=== PATIENT | female | born 1960 | race Caucasian/White ===

== ENCOUNTER 2025-02-06 09:00 | Oncology outpatient (recurring) (ONCR) | payer OTHER, SELFPAY ==
[2025-02-06 10:13] LABS: Basophils # 0.1 10^3/uL (0.0-0.1); Eosinophils # 0.8 10^3/uL (0.0-0.8); Eosinophils % 7.3 %; Lymphocytes # 1.7 10^3/uL (0.8-4.8); Lymphocytes % 15.7 %; Mean Corpuscular HGB Conc 32.1 g/dL (30-55); Mean Corpuscular Hemoglobin 30.3 pg (27-33); Mean Corpuscular Volume 94.4 fl (85-98); Mean Platelet Volume 8.4 fL (7.4-10.4); Monocytes # 0.9 10^3/uL (0.2-0.9); Monocytes % 8.1 %; Neutrophils # 7.33 10^3/uL (1.8-7.7); Neutrophils % 67.3 %; Nucleated Red Blood Cells % 0 %; Platelet Count 323 10^3/cmm (157-399); Red Blood Count 4.13 10^6/uL (3.85-5.65); Red Cell Distribution Width 14.1 % (12.1-15.1); White Blood Count 10.88 10^3/uL (3.29-11.43)
[2025-02-06 10:52] LABS: Alanine Aminotransferase 16 U/L (0-33); Albumin Level 3.2 g/dL (3.5-5.2); Alkaline Phosphatase 136 U/L (35-105); Aspartate Amino Transferase 29 U/L (0-32); Blood Urea Nitrogen 7 mg/dL (8-23); CA 125 93.1 U/mL (0-35); Calcium 8.3 mg/dL (8.5-10.5); Carbon Dioxide 20 mmol/L (22-29); Chloride 103 mmol/L (98-107); Globulin 3.7 g/dL (1.3-4.6); Glomerular Filtration Rate 101.3 mL/min (90-130); Glucose 119 mg/dL (65-115); Osmolality Calculated 283 mOsm/kg (285-295); Sodium 137 mmol/L (136-145); Total Bilirubin 0.3 mg/dL (0.15-1.2); Total Protein 6.9 g/dL (6.6-8.7)
[2025-02-06 10:54] LABS: Anion Gap 18.1 (5-19); Potassium 4.1 mmol/L (3.5-5.1)
== END 2025-02-06 23:59 | disposition home or self-care (01) ==
LOC: ONCMED 09:03
PROVIDERS: Visit Provider Internal Medicine Medical Oncology
DX: C56.2 Malignant neoplasm of left ovary (principal); C78.5 Secondary malignant neoplasm of large intestine and rectum; C78.89 Secondary malignant neoplasm of other digestive organs; C79.82 Secondary malignant neoplasm of genital organs; C79.89 Secondary malignant neoplasm of other specified sites; Z87.891 Personal history of nicotine dependence
CPT/HCPCS: 36415; 80053; 85025; 86304; 99205

== ENCOUNTER → 2025-03-07 09:41 | Outpatient (BNVA) | payer OTHER, SELFPAY | PROVIDERS: Visit Provider Surgery | DX: Z95.828 Presence of other vascular implants and grafts (principal) | CPT/HCPCS: 99204 ==

== ENCOUNTER → 2025-03-22 13:25 | Outpatient (BNVA) | payer OTHER, SELFPAY | PROVIDERS: Referring Provider Surgery; Visit Provider Internal Medicine Cardiovascular Disease | DX: Z01.818 Encounter for other preprocedural examination (principal); C76.8 Malignant neoplasm of other specified ill-defined sites; I26.99 Other pulmonary embolism without acute cor pulmonale; Z79.01 Long term (current) use of anticoagulants; Z87.891 Personal history of nicotine dependence; R07.9 Chest pain, unspecified | CPT/HCPCS: 93005; 99204 ==

== ENCOUNTER 2025-04-01 11:52 | Observation (INO) | payer OTHER, SELFPAY ==
--- OUTSIDE RECORDS SUMMARY | 2025-03-24 09:47 | XMS_ITS | Encounter Summary ---
Author Organization [facility] [employer] [facility] Address [address] [place] [address] Care Team Providers Care Coating Mixer Tender Name Role Phone Wagner Luis MD Primary Care Provider [phone] Reason for Visit * Occupational Therapy (Routine) - Authorized Specialty Diagnoses / Procedures Referred By Contact Referred To Contact Occupational Therapy Diagnoses Decreased strength of upper extremity Genoveva Cole, ADALID [address] [address] Phone: tel: fax: [facility] Occupational Therapy Services [place] [address] [address] Phone: tel: fax: Referral ID Status Reason Start Date Expiration Date V isits Requested Visits Authorized [id number] Authorized 03/03/2025 03/02/2026 1 16 Encounter Details Date Type Department Care Team (Late st Contact Info) Description 03/24/2025 9:47 AM CDT - 03/24/2025 11:59 PM CDT Hospital Encounter [facility] Occupational Therapy Services [place] [address] [phone] Genoveva Cole, ADALID [address] [address] Rhea Prince, [employer] Registrar Discharge Disposition: Home or Self Care Social History Tobacco Use Types Packs/Day Years Used Date Smoking Tobacco: Former Cigarettes 1 42.6 S tarted: 08/10/1982 Smokeless Tobacco: Never Alcohol Use Standard Drinks/Week Comments No 0 (1 standard drink = 0.6 oz pur e alcohol) Feeling Safe Answer Date Recorded Are you in a relationship wi th someone who hurts you emotionally and/or physically? 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 30 Each 11 02/27/2025 gabapentin (NEURONTIN) 100 mg capsuleIndication s:Nerve pain Take 1 Capsule (100 mg) by mouth 2 times daily. 60 Capsule 1 02/22/2025 apixaban (ELIQUIS) 5 mg tablet Take 2 Tablets (10 mg) by mouth 2 times daily for 6 days, THEN 1 Tablet (5 mg) 2 times daily. 96 Tablet 1 02/18/2025 3:09 PM CDT 02/18/2025 traZODone (DESYREL) 50 mg tablet Take 1 Tablet (50 mg) by mouth daily at bedtime. 30 Tablet 1 02/08/2025 ondansetron (Zofran) 4 mg TabletIndications :Moderate nausea Take 1 Tablet (4 mg) by mouth every 8 hours as needed for Nausea/Emesis. 30 Tablet 01/31/2025 walker with wheels Face to Face completed within 6 months: yes Length of Need: 99 months 1 Each 01/15/2025 loperamide (IMODIUM) 2 mg capsule Take 2 mg by mouth every 3 hours as needed for Diarrhea/Loose Stools. meclizine (ANTIVERT) 25 mg tabletIndications :Dizziness Take 1 Tablet (25 mg) by mouth 3 times daily as needed for Dizziness. 90 Tablet 1 12/26/2024 albuterol sulfate HFA 90 mcg/actuation aerosol inhalerIndication s:Mild persistent asthma without complication,Acut e bronchitis, unspecified organism Take 2 Puffs by inhalation every 4 hours as needed for Shortness of Breath or Wheezing. 6.7 Gram 2 12/09/2024 documented as of this encounter Miscellaneous Notes * Therapy Treatment - Rhea Prince, College [employer] University Registrar - 03/24/2025 10:00 AM CDT [facility] Therapy Services-[place] [address] [address] Daily Progress Note 03/24/2025 Patient: Tayler Reveles Date of : 1960 Referring Physician: Genoveva Cole* Primary-Referring Diagnosis: R29.898 (ICD-10-CM) - 729.89 (ICD-9-CM) - Decreased strength of upper extremity Precautions:Healing wound on abdomen Insurance: Payor: RUPINDER / Plan: RUPINDER / Product Type: [place] / Onset Date: 02/06/25 Start of Care Date: 03/03/25 Patient was identified by name and date of Start Time: 10:00 End Time: 11:00 Total Time: 60 minutes Subjective: Pt said she had no UE pain today Pt stated she has been getting up and moving more Pt stated she was feeling more tired and dizzy today. Pain Level 2-5/10 pain wound dressing change. From female surgery and bladder and bowel resection. 4X8 inch wound, healing Tx today 03/16/25 03/20/25 03/24/25 Modality Manual 33 deg clavicle angle at rest Thera act Standing tolerance activity in parallel bars for her comfort Standing There ex Rowing with 40# X 10 with no pain Rowing 40# X 15X2 2# Shoulder presses above Head X 15 X 2 Hand squeeze with green egg roll 2x5 UBE standing 7 minutes LVL 2 UBE standing 5 minutes LVL2 UBE standing for 5 minutes with 1 rest break and the 3 more minutes LV2 Standing red theraband exercises 5 standard X 10 reps each 3# dumbell curls X 15X2 Green Theratubing bilateral shoulder punches X 15 X 2 Standing green theraband exercises 5 [id number] reps each. Assessment: Been using red theratubing and egg squeezes every other day Upgraded to green Pt needs to begin her journey to great UE fitness and whole body conditioning in partnership with PT Plan Would like to regain strength in wrists, arms and to regain mobility. Patient will be seen 2 times per week for 8 weeks or until 05/14/25 for treatment consisting of manual therapy with and without instrumentation, therapeutic exercise with implementation of home exercise program, and modalities as appropriate for pain control. Therapeutic intervention focused to meet the established OT goals. Automatic discharge may occur should the patient exhibit 2-3 consecutive no- shows or cancellations or when patient has met functional OT goals. Therapeutic Goals: Short Term Goals (30 Days) 1) Pt will report and demonstrate 80% or better with HEP exercises compliance 2) Pt will demonstrate improved bilateral last model department supervisor to 35# 3) Pt will tolerate 8 minutes of sustained UE exertion without rest break Care Home Goals (60-90 days) 4) Pt will demonstrate 5/5 bilateral UE strength throughout for ADL and IADL performance 5) Pt will demonstrate 45# bilateral last model department supervisor strength for ADL and IADL performance 6) Pt will have DASH score of 10 or less, demonstrating significant improvement in quality of life and independence with ADLs Rhea Prince [employer] Registrar * Addendum Note - Rhea Prince [employer] Registrar - 03/24/2025 10:00 AM CDTEncounter addended by: Rhea Prince [employer] Registrar on: 03/24/2025 5:18 PM Actions taken: Flowsheet accepted documented in this encounter Plan of Treatment Upcoming Encounters Date Type Department Care Team (Late st Contact Info) Description 04/05/2025 10:00 AM CDT Appointment [facility] Occupational Therapy Services [place] [address] [facility] [address] [place] [phone] Genoveva Cole, ADALID [address] [facility] [address] [place] [address] Rhea Prince, [employer] University Registrar 04/07/2025 10:00 AM CDT Appointment [facility] Occupational Therapy [facility] [address] [phone] Genoveva Cole, ADALID [address] [facility] [address] [place] [address] Rhea Prince, College [employer] University Registrar 04/12/2025 10:00 AM CDT Appointment [facility] Occupational Therapy [facility] [address] [phone] Genoveva Cole, ADALID [address] [address] Rhea Prince, College [employer] University Registrar 04/13/2025 10:30 AM CDT Office Visit [facility] Womens Oncology [place] [address] [facility] [address] [place] [address] Ramya Tobias NP [address] [facility] [address] [place] [address] documented as of this encounter Visit Diagnoses Not on filedocumented in this encounter Additional Health Concerns Assessment Noted Time PHQ-9 Depression Total Score: 1 02/15/20 25 3:00 AM CDT documented as of this encounter Care Teams Coating Mixer Tender Relationship Specialty Start Date End Date Wagner Luis MD [address] [phone] PCP - General Family Practice 06/19/23 documented as of this encounter
--- OUTSIDE RECORDS SUMMARY | 2025-03-29 09:55 | XMS_ITS | Encounter Summary ---
Author Organization [facility] Address [address] [place] [address] Care Team Providers Care Dinkey Engine Firer/Fireman Name Role Phone Wagner Luis MD Primary Care Provider [phone] Reason for Visit * Occupational Therapy (Routine) - Authorized Specialty Diagnoses / Procedures Referred By Contact Referred To Contact Occupational Therapy Diagnoses Decreased [place] of [place] [address] [address] Phone: tel: fax: [facility] Occupational Therapy Services [address] [address] Phone: tel: fax: Referral ID Status Reason Start Date Expiration Date V isits Requested Visits Authorized [id number] Authorized 03/03/2025 03/02/2026 1 16 Encounter Details Date Type Department Care Team (Late st Contact Info) Description 03/29/2025 9:55 AM CDT - 03/29/2025 11:59 PM CDT Hospital Encounter [facility] Occupational Therapy Services [address] [phone] Genoveva Cole, ADALID [address] [address] Blaise Baca Occupational Therapist Discharge Disposition: Home or Self Care Social [...] on file 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 Gender Identity Not on file Sexual Orientation Not on file documented as of this encounter Medications at Time of Discharge fluticasone furoate-vilantero L (Breo Ellipta) 100-25 mcg/dose Disk with Device Inhale 1 puff by mouth once daily 60 Each 02/28/2025 umeclidinium (Incruse Ellipta) 62.5 mcg/actuation Disk [...] encounter Miscellaneous Notes * Therapy Treatment - Blaise Baca Occupational Therapist - 03/29/2025 10:00 AM CDT [facility] Therapy Services-[place] [address] [phone] Daily Progress Note 03/29/2025 Patient: Tayler Reveles Date of : 1960 Referring Physician: Genoveva Cole* Primary-Referring Diagnosis: R29.898 (ICD-10-CM) - 729.89 (ICD-9-CM) - Decreased strength of upper extremity Precautions:Healing wound on abdomen Insurance: Payor: / Plan: / Product Type: [place] / Onset Date: 02/06/25 Start of Care Date: 03/03/25 Patient was identified by name and date of Start Time: 1005 End Time: 1100 Total Time: 55 minutes Subjective: Pt said she had no UE pain today Pt stated she has been getting up and moving more Pt stated she was feeling more tired and dizzy today. Pain Level 2-3/10 low back 2/10 Wound pain 0/10 bilateral shoulder pain Tx today 03/16/25 03/20/25 03/24/25 03/29/25 Modality Manual 33 deg clavicle angle at rest Thera act Standing tolerance activity in parallel bars for her comfort Standing There ex Rowing with 40# X 10 with no pain Rowing 40# X 15X2 2# Shoulder presses above Head X 15 X 2 Hand squeeze with green egg roll 2x5 Rowing 55# X 10 Culrs X8# bar X 10 UBE standing 7 minutes LVL 2 UBE standing 5 minutes LVL2 UBE standing for 5 minutes with 1 rest break and the 3 more minutes LV2 UBE standing 7:09 standing no rest LVL Standing red theraband exercises 5 standard X 10 reps each 3# dumbell curls X 15X2 Green Theratubing bilateral shoulder punches X 15 X 2 Standing green theraband exercises 5 [id number] reps each. Standing green theraband exercises 5 standard X10 reps each. Assessment: Been using red theratubing and egg squeezes every day Pt needs to begin her journey to [...] compliance 2) Pt will demonstrate improved bilateral gallery or museum technician to 35# 3) Pt will tolerate 8 minutes of sustained UE exertion without rest break Byproduct Engineer Goals (60-90 days) 4) Pt will demonstrate 5/5 bilateral UE strength throughout for ADL and IADL performance 5) Pt will demonstrate 45# bilateral gallery or museum technician strength for ADL and IADL performance 6) Pt will have DASH score of 10 or less, demonstrating significant improvement in quality of life and independence with ADLs Blaise Baca Occupational Therapist documented in this encounter Plan of Treatment Upcoming Encounters Date Type Department Care Team (Late st Contact Info) Description 04/05/2025 10:00 AM CDT Appointment [facility] Occupational Therapy Services [place] [address] [place] [phone] Genoveva Cole, ADALID [address] [facility] [address] [place] [address] Rhea Prince Dumper [employer] 04/07/2025 10:00 AM CDT Appointment [facility] Occupational Therapy [facility] [address] [facility] [address] [place] [phone] Genoveva Cole, ADALID [address] [facility] [address] [place] [address] Rhea Prince Dumper [employer] 04/12/2025 10:00 AM CDT Appointment [facility] Occupational Therapy [facility] [address] [facility] [address] [place] [phone] Genoveva Cole, ADALID [address] [facility] [address] [place] [address] Rhea Prince Dumper [employer] 04/13/2025 10:30 AM CDT Office Visit [facility] Womens Oncology [place] [address] [facility] [address] [place] [address] Ramya Tobias NP [address] [facility] [address] [place] [address] documented as of this encounter Visit Diagnoses Not on filedocumented in this encounter Additional Health Concerns Assessment Noted Time PHQ-9 Depression Total Score: 1 02/15/20 25 3:00 AM CDT documented as of this encounter Care Teams Dinkey Engine Firer/Fireman Relationship Specialty Start Date End Date Wagner Luis MD [address] [phone] PCP - General Family Practice 06/19/23 documented as of this encounter
--- OUTSIDE RECORDS SUMMARY | 2025-04-01 11:55 | XMS_ITS | Encounter Summary ---
Author Organization [facility] Address 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 Gender Identity Not on file Sexual Orientation Not on file documented as of this encounter Plan of Treatment Upcoming Encounters Date Type Department Care Team (Late st Contact Info) Description 04/05/2025 10:00 AM CDT Appointment [facility] Occupational Therapy Services [place] [address] [facility] [address] [place] [phone] Genoveva Cole, ADALID [address] [facility] [address] [place] [address] Rhea Prince, Curriculum Specialist 04/07/2025 10:00 AM CDT Appointment [facility] Occupational Therapy [facility] [address] [phone] Genoveva Cole, ADALID [address] [address] Rhea Prince, Curriculum Specialist 04/12/2025 10:00 AM CDT Appointment [facility] Occupational Therapy [facility] [address] [phone] Genoveva Cole, ADALID [address] [address] Rhea Prince Curriculum Specialist 04/13/2025 10:30 AM CDT Office Visit [facility] Womens Oncology [place] [address] [facility] [address] [place] [address] Ramya Tobias NP [address] [facility] [address] [place] [address] documented as of this encounter Visit Diagnoses Not on filedocumented in this encounter Additional Health Concerns 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
--- OUTSIDE RECORDS SUMMARY | 2025-04-01 11:55 | XMS_ITS | Clinical Summary ---
Author Organization [facility] Address [address] [facility] Attn: [place] [address] Care Team Providers Care Linux Architect Name Role Phone Wagner Luis MD Primary Care Provider [phone] Allergies Active Allergy Reactions Criticality Noted Date Comments Acetaminophen Itching Low 09/04/2013 Fish Derived Rash Low 01/09/2025 Medications albuterol sulfate HFA 90 mcg/actuation aerosol inhalerIndicatio ns:Mild persistent asthma without complication,Acu te bronchitis, unspecified organism Take 2 Puffs by inhalation every 4 hours as needed for Shortness of Breath or Wheezing. 6.7 Gram 2 5 Active meclizine (ANTIVERT) 25 mg tabletIndication s:Dizziness Take 1 Tablet (25 mg) by mouth 3 times daily as needed for Dizziness. 90 Tablet 1 5 Active loperamide (IMODIUM) 2 mg capsule Take 2 mg by mouth every 3 hours as needed for Diarrhea/Loose Stools. Active walker with wheels Face to Face completed within 6 months: yes Length of Need: 99 months 1 Each 5 Active ondansetron (Zofran) 4 mg TabletIndication s:Moderate nausea Take 1 Tablet (4 mg) by mouth every 8 hours as needed for Nausea/Emesis. 30 Tablet 5 Active traZODone (DESYREL) 50 mg tablet Take 1 Tablet (50 mg) by mouth daily at bedtime. 30 Tablet 1 5 Active apixaban (ELIQUIS) 5 mg tablet Take 2 Tablets (10 mg) by mouth 2 times daily for 6 days, THEN 1 Tablet (5 mg) 2 times daily. 96 Tablet 1 02/18/2025 3:09 PM CDT 5 05/19/20 25 Active gabapentin (NEURONTIN) 100 mg capsuleIndicatio ns:Nerve pain Take 1 Capsule (100 mg) by mouth 2 times daily. 60 Capsule 1 5 Active umeclidinium (Incruse Ellipta) 62.5 mcg/actuation Disk with Device Take 1 Puff by inhalation daily. 30 Each 11 5 Active fluticasone furoate-vilanter oL (Breo Ellipta) 100-25 mcg/dose Disk with Device Inhale 1 puff by mouth once daily 60 Each 5 5 Active ciprofloxacin HCl (CIPRO) 750 mg tablet Take 1 Tablet (750 mg) by mouth 2 times daily for 7 days. 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 02/13/2025 Acute pulmonary embolism without acute cor pulmo nale 02/13/2025 Hyponatremia 02/13/2025 Hypomagnesemia 02/13/2025 Lower abdominal pain 02/13/2025 High grade serous carcinoma 01/18/2025 H/O lymph node excision 01/17/2025 Leukocytosis (leucocytosis) 01/17/2025 Pelvic abscess in female 01/17/2025 Ovarian cyst, left 01/17/2025 Obesity (BMI 35.0-39.9 without comorbidity) 01/08 FIGO 4B Left tubo-ovarian, r ight fallopian tube High Grade Serous Carcinoma 01/16/2025 S/P right hemicolectomy 01/11/2025 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 Post-menopausal bleeding 01/11/2025 Colonic mass 01/10/2025 Ovarian mass, left 01/10/2025 Elevated CA-125 01/10/2025 S/P LAINE (total abdominal hysterectomy) 5 S/P bladder repair 01/10/2025 Colovesical fistula 01/05/2025 Fistula involving female genital tract Ulcer of left groin 12/19/2024 Ulcer of abdomen wall, limited to breakdown of s kin 12/19/2024 Protein-calorie malnutrition, moderate Centrilobular emphysema 12/14/2024 Tobacco abuse counseling 12/14/2024 Uterovesical fistula 12/13/2024 Pelvic mass and multiple fis tulas s/p ex lap, tumor debulking 12/13/2024 Morbid obesity with body mass index of 40.0-49.9 12/13/2024 Tobacco use 09/15/2016 Encounters Date Type Department Care Team Description 03/29/2025 9:55 AM CDT - 03/29/2025 11:59 PM CDT Hospital Encounter [facility] [address] [facility] 60 [place] [phone] Genoveva Cole, Blaise Murillo, Occupational Therapist Discharge Disposition: Home or Self Care 03/24/2025 9:47 AM CDT - 03/24/2025 11:59 PM CDT Hospital Encounter [facility] [address] [facility] 60 [place] [phone] Genoveva Cole, Rhea Cueva, Mixer Attendant Discharge Disposition: Home or Self Care 03/20/2025 2:48 PM CDT - 03/20/2025 11:59 PM CDT Hospital Encounter [facility] [address] [facility] 60 [place] [phone] Genoveva Cole, Blaise Murillo, Occupational Therapist Discharge Disposition: Home or Self Care 03/16/2025 12:55 PM CDT - 03/16/2025 11:59 PM CDT Hospital Encounter [facility] [address] [facility] [address] [place] [address] Genoveva Cole, Blaise Murillo, Occupational Therapist Discharge Disposition: Home or Self Care 03/03/2025 9:33 AM CDT - 03/03/2025 11:59 PM CDT Hospital Encounter [facility] [address] [phone] Genoveva Cole, Blaise Murillo, Occupational Therapist Discharge Disposition: Home or Self Care 02/27/2025 Telephone [facility] [address] [place] [address] Kaycee Marie NP Erroneous encounter-disregard 02/27/[address] [phone] Kaycee Marie NP Appointment Correction 02/27/2025 [facility] Physical Med [facility] [address] [place] [phone] Elver Mayo MD 02/25/2025 [facility] Med [facility] [address] [place] [address] Elver Mayo MD 02/24/2025 Results Follow-Up [address] [phone] Kaycee Marie NP CBC WITH DIFFERENTIAL, COMPREHENSIVE METABOLIC PANEL 02/23/2025 10:08 AM CDT - 02/23/2025 11:59 PM CDT Hospital Encounter [facility] [address] [phone] Kaycee Marie NP Discharge Disposition: Home or Self Care 02/23/[address] [phone] Wagner Luis MD Provider Call 02/22/2025 10:20 AM CDT Office Visit [address] [phone] Kaycee Marie NP Hospital discharge follow-up (Primary Dx); Nerve pain; Acute pulmonary embolism without acute cor pulmonale, unspecified pulmonary embolism type (CMS/HCC); Pelvic mass and multiple fistulas s/p ex lap, tumor debulking; S/P bladder repair; S/P right hemicolectomy 02/16/2025 Telephone [facility] [address] [facility] [place] [address] [place] [address] Tiarra Whitney RN Nurse Navigation 02/14/2025 External Device Data STL ABSTRACTION Provider, Abstract 02/14/2025 Results Follow-Up [facility] Emergency Medicine [address] [facility] 60 [place] [phone] Maryam Win RN BLOOD CULTURE, BLOOD CULTURE 02/14/2025 External Device Data STL ABSTRACTION Provider, Abstract 02/13/2025 2:04 PM CDT - 02/18/2025 3:04 PM CDT Hospital Encounter [facility] Medical Telemetry [address] 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 Discharge Disposition: [facility] 02/13/2025 Travel 02/09/2025 8:30 AM CDT - 02/09/2025 11:59 PM CDT Hospital Encounter [facility] [address] [phone] Elver Mayo MD Discharge Disposition: Home or Self Care 02/08/2025 10:00 AM CDT Office Visit [facility] [address] [place] [address] Kaycee Marie NP Encounter for follow-up examination (Primary Dx); Insomnia, unspecified type; S/P LAINE (total abdominal hysterectomy); Uterovesical fistula; Ovarian mass, left; Leukocytosis, unspecified type; S/P bladder repair; S/P right hemicolectomy; Pelvic mass and multiple fistulas s/p ex lap, tumor debulking 02/07/2025 External Device Data STL ABSTRACTION Provider, Abstract 02/06/2025 Orders Only [facility] Admitting [address] [phone] Rene Arora Generalized muscle weakness (Primary Dx); Decreased strength of upper extremity 02/03/2025 1:35 PM CDT - 02/03/2025 11:59 PM CDT Hospital Encounter [facility] [address] [phone] Elver Mayo MD Discharge Disposition: Home or Self Care 02/02/2025 Telephone [facility] [address] [facility] 60 [place] [phone] Wagner Luis MD Information 01/27/2025 Telephone [facility] [address] [facility] [place] [address] [place] [address] Tiarra Whitney RN Nurse Navigation 01/26/2025 3:30 PM CDT Office Visit [facility] Womens Oncology [place] [address] [place] [address] Domonique Moore FNP Encounter for education (Primary Dx); High grade serous carcinoma (CMS/HCC); Primary carcinoma of fallopian tube (CMS/HCC); Other specified counseling; Postoperative follow-up; Postoperative fistula of bladder; Status post total abdominal hysterectomy and bilateral salpingo-oophorectomy 01/26/2025 10:00 AM CDT Video Visit [facility] Infectious Disease[address] [phone] Rhea Javier, JASE Pelvic abscess in female (Primary Dx); Colovesical fistula; Receiving intravenous antibiotic treatment as outpatient; Encounter for medication management; At risk for Clostridioides difficile infection 01/24/2025 External Device Data STL ABSTRACTION Provider, Abstract 01/19/2025 5:26 PM CDT - 01/31/2025 5:53 PM CDT Hospital Encounter [address] [phone] Elver Mayo MD Umran, Kusai A, MD Pelvic mass Discharge Disposition: Home or Self Care 01/19/2025 Telephone [facility] Infectious Disease-[address] [phone] Sharon Baca MD IV ABX- coordinated appointments 01/17/2025 External Device Data STL ABSTRACTION Provider, Abstract 01/17/2025 External Device Data STL ABSTRACTION Provider, Abstract 01/16/2025 Telephone [facility] Cancer Center [address] [place], [place] [address] [place] [phone] Tiarra Whitney RN Information 01/16/2025 Cancer Conference [facility] Cancer Center [address] [place] [address] [place] [phone] Tiarra Whitney RN High grade serous carcinoma (CMS/HCC) (Primary Dx) 01/16/2025 Orders Only [facility] Oncology [address] [place] [phone] Ramya Tobias NP FIGO 4B Left tubo-ovarian, right fallopian tube High Grade Serous Carcinoma (Primary Dx) 01/13/2025 Results Follow-Up [facility] Gen Spec Surg [place] [address] [place] [phone] Sanjeev Oliveira MD PATHOLOGY 01/10/2025 2:21 PM CDT - 01/10/2025 9:00 PM CDT Surgery [facility] Operating Room [facility] [place] [phone] Rosalind Quiñones DO HYSTERECTOMY ABDOMINAL TOTAL 01/10/2025 1:56 PM CDT Anesthesia Event [facility] Operating Room [address] [place] [phone] Jg Alexandre MD 01/10/2025 6:54 AM CDT - 01/19/2025 5:03 PM CDT Hospital Encounter [facility] 5B Gynecology [address] [place] [phone] Rosalind Quiñones DO Syed, Ammar, MD Saeed, Mariam, MD Sohail, MD Gerald Carrera Toni L, MD Ovarian mass, left Discharge Disposition: Rehab Facility IP 01/09/2025 Telephone [facility] Gen Spec Surg [place] [address] [place] [phone] Sanjeev Oliveira MD Surgery 01/09/2025 Orders Only [facility] [place] [facility] [address] [address] Sanjeev Oliveira MD 01/06/2025 Orders Only [facility] Gen Spec [facility] [place] [address] [address] Sanjeev Oliveira MD 01/06/2025 Telephone [facility] Gen Spec [facility] [place] [address] [place], [place] [address] [address] [address] Sanjeev Oliveira MD Surgery 01/06/2025 Prep for Surgery [facility] Gen Spec Surg [place] [address] [place] [address] Sanjeev Oliveira MD Uterovesical fistula (Primary Dx) 01/06/2025 Prep for Surgery [facility] Women Oncology [place] [address] [facility] [address] [place] [address] Saima Jackson RN 01/06/2025 Travel 01/05/2025 4:28 PM CDT Anesthesia Event [facility] Operating Room [address] [place] [address] Jg Alexandre MD Belk, Julie R, CRNA 01/05/2025 4:14 PM CDT - 01/05/2025 5:57 PM CDT Surgery [facility] Operating Room [address] [place] [phone] Rosalind Quiñones DO EXAMINATION UNDER ANESTHESIA 01/05/2025 1:59 PM CDT - 01/06/2025 1:27 PM CDT Hospital Encounter [facility] 5B Gynecology [address] [place] [address] Rosalind Quiñones DO Patel, Taksh, MD Sigdel, Supriya, MD Colovesical fistula Discharge Disposition: Home or Self Care 01/05/2025 10:37 AM CDT - 01/05/2025 11:59 PM CDT Hospital Encounter [facility] Nuclear Medicine [address] [place] [address] Domonique Moore FNP Discharge Disposition: Home or Self Care 01/04/2025 10:30 AM CDT Office Visit [facility] [place] [address] [place] [address] Roslaind Quiñones DO Rectovesical fistula (Primary Dx); Pelvic mass in female; Tobacco use; Centrilobular emphysema (CMS/HCC); Screening for cervical cancer; Screening mammogram, encounter for; Uterine fistula 01/04/2025 Prep for Surgery [facility] [place] [address] [place] [phone] Saima Jackson RN Pre-op testing (Primary Dx); Pelvic mass; Post-menopausal bleeding; Fistula involving female genital tract 01/04/2025 Orders Only [facility] Gen Spec Surg [place] [address] [facility] [address] [place] [address] Sanjeev Oliveira MD 01/04/2025 Telephone [facility] Gen Spec Surg [place] [address] [facility] [address] [place] [address] Sanjeev Oliveira MD Colonoscopy 01/04/2025 Orders Only [facility] Gen Spec S[facility] [place] [address] [facility] [address] [place] [address] Sanjeev Oliveira MD Uterovesical fistula (Primary Dx) 2024 Telephone [facility] [address] [place] [place] [address] Fernanda Iraheta, [facility] Information (Social Work Navigation) from Last 3 Months Family History Medical History Relation Name Comments Melanoma Father Bone Cancer Maternal Grandmother Breast Cancer Mother Cancer Mother breast Hypertension Mother Hypertension Sister 1 Hypertension Sister 2 Colon Cancer Neg Hx Ovarian Cancer Neg Hx Pancreatic Cancer Neg Hx Uterine or Endometrial Cance r, Not Including Cervical Neg Hx Relation Name Status Comments Father Maternal Grandmother Mother Sister 1 Sister 2 Social History Tobacco Use Types Packs/Day Years Used Date Smoking Tobacco: Former Cigarettes 1 42.6 S tarted: 08/10/1982 Smokeless Tobacco: Never Tobacco Cessation:Counseling Given: Not Answered Alcohol Use Standard Drinks/Week Comments No 0 [...] on file Legal Sex Female 10:19 AM [employer] Gender Identity Not on file Sexual Orientation Not on file Last Filed Vital Signs Vital Sign Reading Time Taken Comments Blood Pressure 124/80 02/22/2025 10:22 AM CDT Pulse 77 02/22/2025 10:22 AM CDT Temperature 36.3 C (97.3 F) 02/22/2025 10:22 AM CDT Respiratory Rate 18 02/22/2025 10:22 AM CDT Oxygen Saturation 92% 02/22/2025 10:22 AM CDT Inhaled Oxygen Concentration - - Weight 85.7 kg (189 lb) 02/22/2025 10:22 AM CDT Height 157.5 cm (5' 2 ) 02/22/2025 10:22 AM CDT Body Mass Index 34.57 02/22/2025 10:22 AM CDT Plan of Treatment Upcoming Encounters Date Type Department Care Team (Late st Contact Info) Description 04/05/2025 10:00 AM CDT Appointment [facility] [place] [address] [place] [phone] Genoveva Cole, ADALID [address] [address] Rhea Prince, Mixer Attendant 04/07/2025 10:00 AM CDT Appointment [facility] [place] [address] [place] [phone] Genoveva Cole, ADALID [address] [address] Rhea Prince, Mixer Attendant 04/12/2025 10:00 AM CDT Appointment [facility] [place] [address] [place] [phone] [place] [address] [facility] [address] [place] [address] Rhea Prince, Mixer Attendant 04/13/2025 10:30 AM CDT Office Visit [facility] [place] [address] [facility] [address] [place] [address] Ramya Tobias NP [address] [facility] [address] [place] [address] Health Maintenance Due Date Last Done Comments Pre-Diabetes and Diabetes Screening 1962 DTAP/TDAP/TD VACCINES (1 - Tdap) 1981 ZOSTER VACCINE (1 of 2) 1981 BREAST CANCER SCREENING 2002 FIT-DNA Q 3 years 12/31/2007 FIT/FOBT Q 1 year 12/31/2007 Flex Sig/CT Colonography Q 5 years 12/31/2007 COVID-19 Vaccine (3 - Modern a risk series) 03/29/2021 03/01/2021, 01/30/2021 RSV VACCINE (60+ or ) (1 - Risk 60-74 years 1-dose series) 2022 INFLUENZA VACCINE (#1) 2025 11/27/2023 COLORECTAL SCREENING 01/05/2035 01/05/2025, 01/05/2025, 01/05/2025 Colorectal Cancer Screening 01/05/2035 Medical Devices Implanted Type Area Dispatcher Chief Oil Device Identifier Shelf Expiration Date Model / Serial / Lot Clip Ligating Horizon Lrg Ti 10.07x12.38mm [id number] [place] [facility] [id number] Implanted:Qty: 1 on 01/10/2025 by Rosalind Quiñones DO at [facility] Clip N/A: Abdomen TELEFLEX- WECK CLOSURE SYS [id number] 08/23/2029 [id number] / / [id number] Clip Ligating Horizon Med Ti [id number] [place] [facility] [place] [id number] Implanted:Qty: 1 on 01/10/2025 by Rosalind Quiñones DO at [facility] Clip N/A: Abdomen TELEFLEX- WECK CLOSURE SYS [id number] 06/01/2029 [id number] / / [id number] Clip Ligating [facility] [id number] - [place] - [id number] Implanted:Qty: 1 on 01/10/2025 by Rosalind Quiñones DO at [facility] Clip N/A: Abdomen TELEFLEX- WECK CLOSURE SYS [id number] 06/01/2029 [id number] / / [id number] Procedures Procedure Name Priority Date/Time Associated Diagnosis Comments REFERENCE LAB PROCESSING FEE Routine 02/23/2025 10:25 AM CDT Radiotherapy follow-up examination COMPREHENSIVE METABOLIC PANEL Routine 02/22/2025 12:00 AM CDT Acute pulmonary embolism without acute cor pulmonale, unspecified pulmonary embolism type (CMS/HCC) Hospital discharge follow-up CBC WITH DIFFERENTIAL Routine 02/22/2025 12:00 AM CDT Acute pulmonary embolism without acute cor pulmonale, unspecified pulmonary embolism type (CMS/HCC) Hospital discharge follow-up TELEMETRY REPORT 02/20/2025 4:12 PM CDT UNFRACTIONATED HEPARIN ACTIVITY Timed Study 02/17/2025 4:40 AM CDT CBC WITHOUT DIFFERENTIAL Routine 02/16/2025 4:41 PM CDT ECHOCARDIOGRAM W/ CONTRAST AGENT Pending Discharge 02/16/2025 3:19 PM CDT XR CYSTOGRAM Routine 02/16/2025 9:16 AM CDT UNFRACTIONATED HEPARIN ACTIVITY Timed Study 02/16/2025 4:34 AM CDT MAGNESIUM LEVEL Routine 02/15/2025 5:57 AM CDT UNFRACTIONATED HEPARIN ACTIVITY Timed Study 02/15/2025 5:57 AM CDT COMPREHENSIVE METABOLIC PANEL Routine 02/15/2025 5:57 AM CDT CBC WITH DIFFERENTIAL Routine 02/15/2025 5:57 AM CDT CK Routine 02/14/2025 2:19 PM CDT UNFRACTIONATED HEPARIN ACTIVITY Timed Study 02/14/2025 9:39 AM CDT US VENOUS DOPPLER LEG BILATERAL Stat 02/14/2025 7:30 AM CDT UNFRACTIONATED HEPARIN ACTIVITY Timed Study 02/14/2025 3:21 AM CDT COMPREHENSIVE METABOLIC PANEL Routine 02/14/2025 3:21 AM CDT CBC WITH DIFFERENTIAL Routine 02/14/2025 3:21 AM CDT UNFRACTIONATED HEPARIN ACTIVITY Timed Study 02/13/2025 8:51 PM CDT CBC WITHOUT DIFFERENTIAL Stat 02/13/2025 7:00 PM CDT UNFRACTIONATED HEPARIN ACTIVITY Stat 02/13/2025 3:56 PM CDT PTT Stat 02/13/2025 3:56 PM CDT CTA CHEST + ABD/PEL W CONTRAST Stat 02/13/2025 10:25 AM CDT EKG 12-LEAD Stat 02/13/2025 10:21 AM CDT URINALYSIS MICROSCOPY ONLY Stat 02/13/2025 9:30 AM CDT URINALYSIS W/REFLEX MICROSCOPIC Stat 02/13/2025 9:30 AM CDT URINE CULTURE Stat 02/13/2025 9:30 AM CDT TROPONIN BASELINE, 5TH GEN Stat 02/13/2025 9:08 AM CDT MAGNESIUM LEVEL Stat 02/13/2025 9:08 AM CDT C-REACTIVE PROTEIN Stat 02/13/2025 9: 08 AM CDT LACTIC ACID Stat 02/13/2025 9:08 AM CDT BRAIN NATRIURETIC PEPTIDE, BNP OR PROBNP Stat 02/13/2025 9:08 AM CDT LIPASE Stat 02/13/2025 9:08 AM CDT COMPREHENSIVE METABOLIC PANEL Stat 02/13/2025 9:08 AM CDT SEDIMENTATION RATE Stat 02/13/2025 9: 08 AM CDT D-DIMER Stat 02/13/2025 9:08 AM CDT PTT Stat 02/13/2025 9:08 AM CDT PROTIME-INR Stat 02/13/2025 9:08 AM CDT CBC WITH DIFFERENTIAL Stat 02/13/2025 9:08 AM CDT BLOOD CULTURE Stat 02/13/2025 9:08 AM CDT BLOOD CULTURE Stat 02/13/2025 9:08 AM CDT BLOOD CULTURE Stat 02/13/2025 8:50 AM CDT BLOOD CULTURE Stat 02/13/2025 8:50 AM CDT CK Routine 01/27/2025 5:20 AM CDT C-REACTIVE PROTEIN Routine 01/27/2025 5: 20 AM CDT COMPREHENSIVE METABOLIC PANEL Routine 01/27/2025 5:20 AM CDT CBC WITH DIFFERENTIAL Routine 01/27/2025 5:20 AM CDT CK Routine 01/20/2025 4:30 AM CDT C-REACTIVE PROTEIN Routine 01/20/2025 4: 30 AM CDT COMPREHENSIVE METABOLIC PANEL Routine 01/20/2025 4:30 AM CDT CBC WITH DIFFERENTIAL Routine 01/20/2025 4:30 AM CDT TELEMETRY REPORT 01/20/2025 2:16 AM CDT CBC WITH DIFFERENTIAL Routine 01/19/2025 4:19 AM CDT BASIC METABOLIC PANEL Routine 01/19/2025 4:19 AM CDT INSERT PICC LINE Routine 01/18/2025 6:08 PM CDT INSERT PICC LINE Routine 01/18/2025 6:08 PM CDT POC GLUCOSE Routine 01/18/2025 5:59 PM CDT CK Routine 01/18/2025 4:21 PM CDT BASIC METABOLIC PANEL Routine 01/18/2025 5:11 AM CDT CBC WITH DIFFERENTIAL Routine 01/18/2025 5:[address] ABDOMEN PELVIS W CONTRAST Pending Discharge 01/17/2025 3:54 PM CDT ANAEROBIC/AEROBIC CULTURE W GRAM STAIN Routine 01/17/2025 1:43 PM CDT ANAEROBIC/AEROBIC CULTURE W GRAM STAIN Routine 01/17/2025 12:25 PM CDT CBC WITH DIFFERENTIAL Routine 01/17/2025 9:38 AM CDT BASIC METABOLIC PANEL Routine 01/17/2025 5:08 AM CDT RT ASSESS AND TREAT Routine 01/16/2025 11:28 AM CDT BASIC METABOLIC PANEL Routine 01/16/2025 3:51 AM CDT CBC WITH DIFFERENTIAL Routine 01/16/2025 3:51 AM CDT BASIC METABOLIC PANEL Routine 01/15/2025 3:39 AM CDT CBC WITH DIFFERENTIAL Routine 01/15/2025 3:39 AM CDT BASIC METABOLIC PANEL Routine 01/14/2025 4:56 AM CDT CBC WITH DIFFERENTIAL Routine 01/14/2025 4:56 AM CDT BASIC METABOLIC PANEL Routine 01/13/2025 6:02 AM CDT CBC WITH DIFFERENTIAL Routine 01/13/2025 6:02 AM CDT POC GLUCOSE Routine 01/13/2025 5:17 AM CDT POC GLUCOSE Routine 01/12/2025 4:23 PM CDT BASIC METABOLIC PANEL Routine 01/12/2025 3:35 AM CDT CBC WITH DIFFERENTIAL Routine 01/12/2025 3:35 AM CDT POC GLUCOSE Routine 01/12/2025 3:34 AM CDT POC GLUCOSE Routine 01/11/2025 11:22 PM CDT POC GLUCOSE Routine 01/11/2025 8:21 PM CDT POC GLUCOSE Routine 01/11/2025 12:38 PM CDT POC GLUCOSE Routine 01/11/2025 8:24 AM CDT POC GLUCOSE Routine 01/11/2025 4:07 AM CDT PROTIME-INR Routine 01/11/2025 2:18 AM CDT COMPREHENSIVE METABOLIC PANEL Routine 01/11/2025 2:18 AM CDT CBC WITH DIFFERENTIAL Stat 01/11/2025 2:18 AM CDT POC GLUCOSE Routine 01/10/2025 11:51 PM CDT POC GLUCOSE Routine 01/10/2025 8:14 PM CDT XR POST SURGICAL INSTRUMENT COUNT Routine 01/10/2025 8:00 PM CDT PREPARE FRESH FROZEN PLASMA Routine 01/10/2025 5:24 PM CDT PREPARE FRESH FROZEN PLASMA Stat 01/10/2025 5:24 PM CDT PREPARE RED BLOOD CELLS Routine 01/11/20 5:22 PM CDT PREPARE RED BLOOD CELLS Stat 01/11/20 5:22 PM CDT TRANSFUSE FROZEN PLASMA Stat 01/11/20 5:19 PM CDT TRANSFUSE PACKED RED BLOOD CELLS Stat 01/10/2025 5:19 PM CDT TRANSFUSE FROZEN PLASMA Stat 01/11/20 4:46 PM CDT TRANSFUSE PACKED RED BLOOD CELLS Stat 01/10/2025 4:45 PM CDT PREPARE FRESH FROZEN PLASMA Routine 01/10/2025 4:32 PM CDT PREPARE FRESH FROZEN PLASMA Stat 01/10/2025 4:32 PM CDT PREPARE RED BLOOD CELLS Routine 01/11/20 4:30 PM CDT PREPARE RED BLOOD CELLS Stat 01/11/20 4:30 PM CDT AFB CULTURE WITH STAIN Routine 3:55 PM CDT Pelvic mass Colouterine fistula Colovesical fistula Post-menopausal bleeding ANAEROBIC/AEROBIC CULTURE W GRAM STAIN Routine 01/10/2025 3:55 PM CDT Pelvic mass Colouterine fistula Colovesical fistula Post-menopausal bleeding PATHOLOGY Pathology 01/10/2025 3:49 PM CDT Pelvic mass Colouterine fistula Colovesical fistula Post-menopausal bleeding ABDOMINAL/PELVIC TUMOR RESECTION/DEBULKING 01/10/2025 2:21 PM CDT Pelvic mass Colouterine fistula Colovesical fistula Post-menopausal bleeding ND LMTD LMPHADEC STAGING SPX PEL&PARA-AORTIC 01/10/2025 2:21 PM CDT Pelvic mass Colouterine fistula Colovesical fistula Post-menopausal bleeding ADHESIOLYSIS 01/10/2025 2:21 PM CDT Pelvic mass Colouterine fistula Colovesical fistula Post-menopausal bleeding URETEROLYSIS 01/10/2025 2:21 PM CDT Pelvic mass Colouterine fistula Colovesical fistula Post-menopausal bleeding BLADDER FISTULA REPAIR 2:21 PM CDT Pelvic mass Colouterine fistula Colovesical fistula Post-menopausal bleeding CYSTOURETHROSCOPY 01/10/2025 2:2 1 PM CDT Pelvic mass Colouterine fistula Colovesical fistula Post-menopausal bleeding ND COLECTOMY PARTIAL W/ANASTOMOSIS 01/10/2025 2:21 PM CDT Pelvic mass Colouterine fistula Colovesical fistula Post-menopausal bleeding ND LMTD LMPHADEC STAGING SPX PEL&PARA-AORTIC 01/10/2025 2:21 PM CDT Pelvic mass Colouterine fistula Colovesical fistula Post-menopausal bleeding ND TOTAL ABDOMINAL HYSTERECT W/WO RMVL TUBE OVARY 01/10/2025 2:21 PM CDT Pelvic mass Colouterine fistula Colovesical fistula Post-menopausal bleeding ND ANES INSERT ENDOTRACHEAL AIRWAY Routine 01/10/2025 2:09 PM CDT EKG 12-LEAD Stat 01/10/2025 1:20 PM CDT VERIFICATION BLOOD GROUP Stat 01/10/2025 8:26 AM CDT TYPE AND SCREEN Stat 01/10/2025 8:22 AM CDT EKG 12-LEAD Routine 01/10/2025 8:04 AM CDT TELEMETRY REPORT 01/09/2025 4:01 AM CDT BASIC METABOLIC PANEL Routine 01/06/2025 3:36 AM CDT CBC WITH DIFFERENTIAL Routine 01/06/2025 3:36 AM CDT POC GLUCOSE Routine 01/05/2025 5:46 PM CDT ND ANES INSERT SUPRAGLOTTIC AIRWAY Routine 01/05/2025 5:05 PM CDT ND COLSC FLX W/RMVL OF TUMOR POLYP LESION SNARE TQ 01/05/2025 4:14 PM CDT 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 Post-menopausal bleeding ND COLONOSCOPY W/BIOPSY SINGLE/MULTIPLE 01/05/2025 4:14 PM CDT 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 Post-menopausal bleeding ND COLONOSCOPY FLX DX W/COLLJ SPEC WHEN PFRMD 01/05/2025 4:14 PM CDT 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 Post-menopausal bleeding ND CYSTOURETHROSCOPY 01/05/2025 4:14 PM CDT 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 Post-menopausal bleeding ND PELVIC EXAMINATION W/ANESTHESIA OTHER THAN LOCAL 01/05/2025 4:14 PM CDT 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 Post-menopausal bleeding COMPREHENSIVE METABOLIC PANEL Stat 01/05/2025 3:00 PM CDT CBC WITH DIFFERENTIAL Stat 01/05/2025 3:00 PM CDT PET TUMOR OR INFECTION IMG W CT SKB MDTH Routine 01/05/2025 2:13 PM CDT Pelvic mass in female Uterovesical fistula POC GLUCOSE Routine 01/05/2025 12:29 PM CDT CERV/VAG CYTO SCREEN PAP W/HPV Routine 01/04/2025 11:59 AM CDT Screening for cervical cancer from Last 3 Months Results * REFERENCE LAB PROCESSING FEE (02/23/2025 10:25 AM CDT) Pathologist [facility] REFERENCE LAB SENDOUT Sent to Ref Lab 02/23/2025 12:00 PM CDT [facility] Other, specify BLOOD SPECIMEN / Unknown Collection / Unknown 02/23/2025 10:25 AM CDT 02/23/2025 10:25 AM CDT us Kaycee Marie NP CHEMISTRY ORDERABLES Final Res ult [facility] CLIA # [id number] [address] [place] [address] * (ABNORMAL) CBC WITH DIFFERENTIAL (02/22/2025 12:00 AM CDT) Only the most recent of17 resultswithin the time period is included. Pathologist [facility] WBC 9.2 3.8 - 10.8 Thousand/u L [facility] RBC 4.29 3.80 - 5.10 Million/uL [facility] HEMOGLOBIN 12.7 11.7 - 15.5 g/dL [facility] HEMATOCRIT 40.9 35.0 - 45.0 % [facility] MCV 95.3 80.0 - 100.0 fL [facility] MCH 29.6 27.0 - 33.0 pg [facility] MCHC 31.1(L) 32.0 - 36.0 g/dL [facility] Comment: For adults, a slight decrease in the calculated MCHC value (in the range of 30 to 32 g/dL) is most likely not clinically significant; however, it should be interpreted with caution in correlation with other red cell parameters and the patient's clinical condition. RDW 13.0 11.0 - 15.0 % [facility] PLATELETS 397 140 - 400 Thousand/u L [facility] MPV 9.2 7.5 - 12.5 fL [facility] NEUTROPHIL ABSOLUTE 6,044 1,500 - 7,800 cells/uL [facility] LYMPHOCYTE ABSOLUTE 1,831 850 - 3,900 cells/uL [facility] MONOCYTE ABSOLUTE 718 200 - 950 cells/uL [facility] EOSINOPHIL ABSOLUTE 515(H) 15 - 500 cells/uL [facility] BASOPHILS ABSOLUTE 92 0 - 200 cells/uL [facility] NEUTROPHIL 65.7 % [facility] LYMPHOCYTES 19.9 % [facility] MONOCYTE 7.8 % [facility] EOSINOPHILS 5.6 % [facility] BASOPHILS 1.0 % [facility] Comment: Test Performed at: [email or web address] [id number] [place] [address] Scotty Langley MD Blood 02/22/2025 02/24/2025 3:0 1 AM CDT us Kaycee Marie NP HEMATOLOGY ORDERABLES Final Re sult [facility] [phone] [facility] [address] [place] [address] * (ABNORMAL) COMPREHENSIVE METABOLIC PANEL (02/22/2025 12:00 AM CDT) Only the most recent of8 resultswithin the time period is included. GLUCOSE 112(H) 65 - 99 mg/dL [facility] Comment: Fasting reference interval For someone without known diabetes, a glucose value between 100 and 125 mg/dL is consistent with prediabetes and should be confirmed with a follow-up test. BUN 11 7 - 25 mg/dL [facility] CREATININE 0.59 0.50 - 1.05 mg/dL [facility] GFR 102 > OR = 60 mL/min/1. 73m2 [facility] BUN/CREAT RATIO SEE NOTE: 6 - 22 (calc) [facility] Comment: Not Reported: BUN and Creatinine are within reference range. SODIUM 135 135 - 146 mmol/L [facility] POTASSIUM 4.1 3.5 - 5.3 mmol/L [facility] CHLORIDE 102 98 - 110 mmol/L [facility] CO2 22 20 - 32 mmol/L [facility] CALCIUM 8.7 8.6 - 10.4 mg/dL [facility] TOTAL PROTEIN 6.6 6.1 - 8.1 g/dL [facility] ALBUMIN 3.6 3.6 - 5.1 g/dL [facility] GLOBULIN 3.0 1.9 - 3.7 g/dL (calc) [facility] ALBUMIN/GLOBULIN RATIO 1.2 1.0 - 2.5 (calc) [facility] BILIRUBIN TOTAL 0.3 0.2 - 1.2 mg/dL [facility] ALKALINE PHOSPHATASE 119 37 - 153 U/L [facility] AST 29 10 - 35 U/L [facility] ALT 21 6 - 29 U/L [facility] Comment: Test Performed at: [email or web address] [address] Scotty Langley MD Blood 02/22/2025 02/24/2025 3:0 1 AM CDT us Kaycee Marie NP CHEMISTRY ORDERABLES Final Res ult [facility] [phone] [facility] [address] * TELEMETRY REPORT (02/20/2025 4:12 PM CDT) Only the most recent of3 resultswithin the time period is included. Provider Scanning ECG ORDERABLES Final Result * UNFRACTIONATED HEPARIN MONITORING (02/17/2025 4:40 AM CDT) Only the most recent of7 resultswithin the time period is included. [facility] ANTI-XA UNFRAC HEP 0.46 See Interpretation IU/mL 02/17/2025 5:11 AM CDT [facility] Blood Venipuncture / Unknown 02/17/2025 4:40 AM CDT 02/17/2025 4:48 AM CDT Narrative [facility] - 02/17/2025 5:11 AM CDT Therapeutic Range: PT/DVT Heparin Protocol 0.3 - 0.7 IU/ml Cardiac Heparin Protocol 0.3 - 0.6 IU/ml The reference range for this test is specific to the anticoagulant and is not appropriate for monitoring patients on a DOAC protocol. Rigoberto Hinton MD HEMATOLOGY ORDERABLES Fin al Result [facility] CLIA # [id number] [address] [place] [address] * (ABNORMAL) CBC WITHOUT DIFFERENTIAL (02/16/2025 4:41 PM CDT) Only the most recent of2 resultswithin the time period is included. [facility] WBC 8.7 4.8 - 10.8 K/uL 02/16/2025 5:18 PM CDT [facility] RBC 3.46(L) 4.20 - 5.40 M/uL 02/16/2025 5:18 PM CDT [facility] HEMOGLOBIN 10.3(L) 12.0 - 16.0 g/dL 02/16/2025 5:18 PM [facility] HEMATOCRIT 32.3(L) 36.0 - 46.0 % 02/16/2025 5:18 PM T [facility] MCV 93.4 84.0 - 103.0 fL 02/16/2025 5:18 PM CDT [facility] MCH 29.8 27.0 - 34.0 pg 02/16/2025 5:18 PM CDT [facility] MCHC 31.9 30.0 - 35.0 g/dL 02/16/2025 5:18 PM CDT [facility] PLATELETS 386 140 - 440 K/uL 02/16/2025 5:18 PM CDT [facility] MPV 9.0 8.9 - 12.8 fL 02/16/2025 5:18 PM CDT [facility] RDW 13.2 11.0 - 14.5 % 02/16/2025 5:18 PM CDT [facility] RDW-STDEV 44.9 37.0 - 54.0 fL 02/16/2025 5:18 PM CDT [facility] Blood Venipuncture / Unknown 02/16/2025 4:41 PM CDT 02/16/2025 5:15 PM CDT us Roberto Carlos Neal MD HEMATOLOGY ORDERABLES Final Res ult [facility] CLIA # [id number] [address] [address] * ECHOCARDIOGRAM W/ CONTRAST AGENT (02/16/2025 3:19 PM CDT) EJECTION FRACTION 64 INTERFACE SYSTEM 02/16/2025 2:10 PM CDT Narrative INTERFACE SYSTEM - 02/16/2025 3:48 PM CDT [facility] Echocardiography Laboratory [address] [place] [address] Transthoracic Echocardiography Patient: Tayler Reveles Study ECHO COMPLETE-PD Kathleen ID: Gender: F : 1960 Age: 64 Room: [facility] 02/16/2025 Pt Inpatient Date: Status: Study 02:10:26 PM [facility] #: [id number] Time: Ordering:Rigoberto Hinton Aquatic Laborer: Odell Hawkins [facility] Indications and History: Pulmonary Embolism; Known acute pulmonary embolism to guide therapy. Summary and Conclusion: - Left ventricle: The cavity size is normal. There is mild focal basal hypertrophy of the septum. Global systolic function is normal. For Epic reporting: the left ventricular ejection fraction is 62%. No diagnostic regional wall motion abnormality identified. Left ventricular diastolic function parameters are normal. The longitudinal strain is -19.8% (Normal range is -18 to -25). - Right ventricle: The cavity size is normal. Systolic function is normal. Systolic pressure is mildly increased. The RV pressure during systole is 47mm Hg. - Tricuspid valve: There is mild regurgitation. - Pulmonic valve: There is mild regurgitation. Procedure information: No prior study is available for comparison. Study status: Routine. Procedure: A transthoracic echocardiogram was performed. Image quality was adequate. Scanning was performed from the parasternal, apical, subcostal, and suprasternal notch acoustic windows. Intravenous contrast (Definity) was administered to opacify the LV. There were no complications. There were no contrast reactions. Study components: M-mode, 2D, complete spectral Doppler, and color Doppler. Height: 157.5cm. Height: 62in. Weight: 87kg. Weight: 191.8lb. BMI: 35.1kg/m^2. BSA: 1.99m^2. Blood pressure: 142/89 Study date: 02/16/2025. Study time: 02:10 PM. Location: Bedside. Cardiac Anatomy: LEFT VENTRICLE: The cavity size is normal. There is mild focal basal hypertrophy of the septum. Global systolic function is normal. For Epic reporting: the left ventricular ejection fraction is 62%. No diagnostic regional wall motion abnormality identified. The longitudinal strain is -19.8% (Normal range is -18 to -25). Left ventricular diastolic function parameters are normal. RIGHT VENTRICLE: The cavity size is normal. Systolic function is normal. Systolic pressure is mildly increased. LEFT ATRIUM: The atrium is at the upper limits of normal in size. RIGHT ATRIUM: The atrium is normal in size. ATRIAL SEPTUM: No obvious PFO or ASD identified by 2D imaging and color Doppler. AORTIC VALVE: The valve is trileaflet. The leaflets are thickened. Mobility is not restricted. Velocity is minimally increased. There is no stenosis. There is trace regurgitation. MITRAL VALVE: The leaflets are thickened. Mobility is not restricted. No evidence for prolapse. There is no evidence for stenosis. There is trace regurgitation. TRICUSPID VALVE: Structurally normal valve. Mobility is unrestricted. There is no evidence for stenosis. There is mild regurgitation. PULMONIC VALVE: Not well visualized. The valve appears to be grossly normal. There is no evidence for stenosis. There is mild regurgitation. The peak systolic gradient is 6mm Hg. PERICARDIUM: A minimal pericardial effusion and/or fat pad was identified. AORTA: Aortic root: The root is not dilated. Aortic arch: The vessel is not dilated. INTRACARDIAC MASS THROMBUS: No apparent intracavitary masses or thrombi detected. Measurements Left ventricle Value Left atrium Value GLS, 2D -19.8 % AP dim, ES 3.4 cm ESD, LAX 2.7 cm AP dim index, ES 1.7 cm/m^2 ESD/bsa, LAX 1.3 cm/m^2 Area ES, A4C 18 cm^2 FS, LAX 42 % SI dim, A2C 6.1 cm FS, LAX chord 42 % Vol, ES, 1-p A4C 44 ml ESD major ax, A4C 6.1 cm Vol/bsa, ES, 1-p A4C 22 ml/m^2 ESD/bsa major ax, A4C 3.1 cm/m^2 Vol, ES, 1-p A2C 67 ml JOJO minor ax, A4C 6.1 cm Vol/bsa, ES, 1-p A2C 34 ml/m^2 JOJO/bsa minor ax, A4C 3.1 cm/m^2 Vol, ES, 2-p 57 ml GERSON, A4C 31.6 cm^2 Vol/bsa, ES, 2-p 28 ml/m^2 EBONI, A4C 17.3 cm^2 FAC, A4C 45 % Aortic valve Value JOJO major ax, A2C 7.6 cm Mean v, S 130 cm/sec JOJO/bsa major ax, A2C 3.8 cm/m^2 VTI, S 38.5 cm GERSON, A2C 30.9 cm^2 Accel time 79 ms EBONI, A2C 17.2 cm^2 Mean grad, S 8 mm Hg FAC, A2C 44 % LVOT/AV, VTI ratio 0.55 IVS, ED 1.2 cm JANES, VTI 1.9 cm^2 PW, ED 1.0 cm JANES/bsa, VTI 0.95 cm^2/m^2 IVS/PW, ED 1.15 LVOT/AV, Vmean ratio 0.51 EDV 96 ml JANES, Vmean 1.8 cm^2 ESV 26 ml JANES/bsa, Vmean 0.89 cm^2/m^2 EF 73 % SV 73 ml Mitral valve Value EDV/bsa 48 ml/m^2 Mean v, D 76.2 cm/sec ESV/bsa 13 ml/m^2 Peak E 110 cm/sec SV/bsa 37 ml/m^2 Peak A 109 cm/sec EDV, 1-p A2C 106 ml VTI leaflet coapt 29.1 cm ESV, 1-p A2C 65 ml MiV/LVOT VTI 1.4 EF, 1-p A2C 61 % Decel slope 285 cm/s^2 SV, 1-p A2C 70 ml Decel time 240 ms EDV/bsa, 1-p A2C 53 ml/m^2 PHT 109 ms ESV/bsa, 1-p A2C 33 ml/m^2 Mean grad, D 3 mm Hg SV/bsa, 1-p A2C 35.3 ml/m^2 Peak grad, D 5 mm Hg EDV, 1-p A4C 106 ml Peak E/A ratio 1 ESV, 1-p A4C 40 ml E-VTI 29.1 cm EF, 1-p A4C 62 % A-VTI 29.1 cm SV, 1-p A4C 77 ml VTI E/A 1.0 EDV/bsa, 1-p A4C 53 ml/m^2 MVA 2.51 cm^2 ESV/bsa, 1-p A4C 20 ml/m^2 MVA/bsa 1.26 cm^2/m^2 SV/bsa, 1-p A4C 39 ml/m^2 MVA, PHT 2.02 cm^2 EDV, 2-p 108 ml MVA/bsa, PHT 1.01 cm^2/m^2 ESV, 2-p 41 ml MVA, LVOT cont 2.5 cm^2 EF, 2-p 62 % MVA/bsa, LVOT cont 1.26 cm^2/m^2 SV, 2-p 67 ml Yu VTI 29.1 cm EDV/bsa, 2-p 54 ml/m^2 Vena contracta width 2.7 cm ESV/bsa, 2-p 21 ml/m^2 SV/bsa, 2-p 34.9 ml/m^2 Pulmonic valve Value EDV, MM Teich. 96 ml Peak v, S 121 cm/sec EF, MM Teich. 73 % Peak grad, S 6 mm Hg EDV/bsa, MM Teich. 48 ml/m^2 EF, MM on 2D Teich. 73 % Tricuspid valve Value E', lat yu, TDI 14.8 cm/sec TR vena contracta width 2.1 cm E/e', lat yu, TDI 14 Peak RV-RA grad, S 39 mm Hg E', med yu, TDI 7.8 cm/sec E/e', med yu, TDI 14 Aortic root Value E', avg, TDI 11.3 cm/sec S-T junct diam, ED 2.1 cm E/e', avg, TDI 10 S-T junct diam/bsa, ED 1.0 cm/m^2 LVOT Value Ascending aorta Value Diam, S 2.1 cm AAo AP diam, S 3.1 cm Area 3.4 cm^2 AAo AP diam/bsa, S 1.6 cm/m^2 Peak josue, S 101 cm/sec Mean josue, S 66.8 cm/sec Pulmonary artery Value VTI, S 21.3 cm Pressure, S 41 mm Hg Peak grad, S 4 mm Hg SV 73 ml Systemic veins Value SV/bsa 37 ml/m^2 Estimated CVP 8 mm Hg Right ventricle Value JOJO, LAX 2.7 cm JOJO 2.7 cm Pressure, S 47 mm Hg Legend: (L) and (H) lola values outside specified reference range. [facility] are accredited with the Intersocietal Accreditation Commission - Echocardiography. Prepared and Electronically Authenticated Mitch Jarrell Confirmed 02/16/2025 15:47 Procedure Note Mitch Jarrell MD - 02/16/2025 [facility] Echocardiography Laboratory [address] [place] [address] Transthoracic Echocardiography Patient: Tayler Reveles Study ECHOCOMPLETE-PD Wang ID: Gender: F : 1960 Age: 64 Room: [facility] Study 02/16/2025 Pt Inpatient Date: Status: Study 02:10:26 PM CSN #: [id number] Time: Ordering:Rigoberto Hinton Aquatic Laborer: Odell Hawkins [facility] Indications and History: Pulmonary Embolism; Known acute pulmonary embolism to guide therapy. Summary and Conclusion: - Left ventricle: The cavity size is normal. There is mild focal basal hypertrophy of the septum. Global systolic function is normal. ForEpic reporting: the left ventricular ejection fraction is 62%. Nodiagnostic regional wall motion abnormality identified. Left ventriculardiastolic function parameters are normal. The longitudinal strain is -19.8%(Normal range is -18 to -25). - Right ventricle: The cavity size is normal. Systolic function isnormal. Systolic pressure is mildly increased. The RV pressure during systoleis 47mm Hg. - Tricuspid valve: There is mild regurgitation. - Pulmonic valve: There is mild regurgitation. Procedure information: No prior study is available for comparison.Study status: Routine. Procedure: A transthoracic echocardiogram wasperformed. Image quality was adequate. Scanning was performed from the parasternal, apical, subcostal, and suprasternal notch acoustic windows. Intravenous contrast (Definity) was administered to opacify the LV. There were no complications. There were no contrast reactions. Studycomponents: M-mode, 2D, complete spectral Doppler, and color Doppler. Height:157.5cm. Height: 62in. Weight: 87kg. Weight: 191.8lb. BMI: 35.1kg/m^2.BSA: 1.99m^2. Blood pressure: 142/89 Study date: 02/16/2025. Studytime: 02:10 PM. Location: Bedside. Cardiac Anatomy: LEFT VENTRICLE: The cavity size is normal. There is mild focal basal hypertrophy of the septum. Global systolic function is normal. For Epic reporting: the left ventricular ejection fraction is 62%. No diagnostic regional wall motion abnormality identified. The longitudinal strain is-19.8% (Normal range is -18 to -25). Left ventricular diastolic functionparameters are normal. RIGHT VENTRICLE: The cavity size is normal. Systolic function isnormal. Systolic pressure is mildly increased. LEFT ATRIUM: The atrium is at the upper limits of normal in size. RIGHT ATRIUM: The atrium is normal in size. ATRIAL SEPTUM: No obvious PFO or ASD identified by 2D imaging and color Doppler. AORTIC VALVE: The valve is trileaflet. The leaflets are thickened.Mobility is not restricted. Velocity is minimally increased. There is nostenosis. There is trace regurgitation. MITRAL VALVE: The leaflets are thickened. Mobility is not restricted.No evidence for prolapse. There is no evidence for stenosis. There istrace regurgitation. TRICUSPID VALVE: Structurally normal valve. Mobility isunrestricted. There is no evidence for stenosis. There is mild regurgitation. PULMONIC VALVE: Not well visualized. The valve appears to be grosslynormal. There is no evidence for stenosis. There is mild regurgitation. Thepeak systolic gradient is 6mm Hg. PERICARDIUM: A minimal pericardial effusion and/or fat pad wasidentified. AORTA: Aortic root: The root is not dilated. Aortic arch: The vessel is not dilated. INTRACARDIAC MASS THROMBUS: No apparent intracavitary masses or thrombi detected. Measurements Left ventricle Value Left atrium Value GLS, 2D -19.8 % AP dim, ES 3.4 cm ESD, LAX 2.7 cm AP dim index, ES 1.7cm/m^2 ESD/bsa, LAX 1.3 cm/m^2 Area ES, A4C 18cm^2 FS, LAX 42 % SI dim, A2C 6.1 cm FS, LAX chord 42 % Vol, ES, 1-p A4C 44 ml ESD major ax, A4C 6.1 cm Vol/bsa, ES, 1-p A4C 22ml/m^2 ESD/bsa major ax, A4C 3.1 cm/m^2 Vol, ES, 1-p A2C 67 ml JOJO minor ax, A4C 6.1 cm Vol/bsa, ES, 1-p A2C 34ml/m^2 JOJO/bsa minor ax, A4C 3.1 cm/m^2 Vol, ES, 2-p 57 ml GERSON, A4C 31.6 cm^2 Vol/bsa, ES, 2-p 28ml/m^2 EBONI, A4C 17.3 cm^2 FAC, A4C 45 % Aortic valve Value JOJO major ax, A2C 7.6 cm Mean v, S 130cm/sec JOJO/bsa major ax, A2C 3.8 cm/m^2 VTI, S 38.5 cm GERSON, A2C 30.9 cm^2 Accel time 79 ms EBONI, A2C 17.2 cm^2 Mean grad, S 8 mmHg FAC, A2C 44 % LVOT/AV, VTI ratio 0.55 IVS, ED 1.2 cm JANES, VTI 1.9cm^2 PW, ED 1.0 cm JANES/bsa, VTI 0.95cm^2/m^2 IVS/PW, ED 1.15 LVOT/AV, Vmean ratio 0.51 EDV 96 ml JANES, Vmean 1.8cm^2 ESV 26 ml JANES/bsa, Vmean 0.89cm^2/m^2 EF 73 % SV 73 ml Mitral valve Value EDV/bsa 48 ml/m^2 Mean v, D 76.2cm/sec ESV/bsa 13 ml/m^2 Peak E 110cm/sec SV/bsa 37 ml/m^2 Peak A 109cm/sec EDV, 1-p A2C 106 ml VTI leaflet coapt 29.1 cm ESV, 1-p A2C 65 ml MiV/LVOT VTI 1.4 EF, 1-p A2C 61 % Decel slope 285cm/s^2 SV, 1-p A2C 70 ml Decel time 240 ms EDV/bsa, 1-p A2C 53 ml/m^2 PHT 109 ms ESV/bsa, 1-p A2C 33 ml/m^2 Mean grad, D 3 mmHg SV/bsa, 1-p A2C 35.3 ml/m^2 Peak grad, D 5 mmHg EDV, 1-p A4C 106 ml Peak E/A ratio 1 ESV, 1-p A4C 40 ml E-VTI 29.1 cm EF, 1-p A4C 62 % A-VTI 29.1 cm SV, 1-p A4C 77 ml VTI E/A 1.0 EDV/bsa, 1-p A4C 53 ml/m^2 MVA 2.51cm^2 ESV/bsa, 1-p A4C 20 ml/m^2 MVA/bsa 1.26cm^2/m^2 SV/bsa, 1-p A4C 39 ml/m^2 MVA, PHT 2.02cm^2 EDV, 2-p 108 ml MVA/bsa, PHT 1.01cm^2/m^2 ESV, 2-p 41 ml MVA, LVOT cont 2.5cm^2 EF, 2-p 62 % MVA/bsa, LVOT cont 1.26cm^2/m^2 SV, 2-p 67 ml Yu VTI 29.1 cm EDV/bsa, 2-p 54 ml/m^2 Vena contracta width 2.7 cm ESV/bsa, 2-p 21 ml/m^2 SV/bsa, 2-p 34.9 ml/m^2 Pulmonic valve Value EDV, MM Teich. 96 ml Peak v, S 121cm/sec EF, MM Teich. 73 % Peak grad, S 6 mmHg EDV/bsa, MM Teich. 48 ml/m^2 EF, MM on 2D Teich. 73 % Tricuspid valve Value E', lat yu, TDI 14.8 cm/sec TR vena contracta width 2.1 cm E/e', lat yu, TDI 14 Peak RV-RA grad, S 39 mmHg E', med yu, TDI 7.8 cm/sec E/e', med yu, TDI 14 Aortic root Value E', avg, TDI 11.3 cm/sec S-T junct diam, ED 2.1 cm E/e', avg, TDI 10 S-T junct diam/bsa, ED 1.0cm/m^2 LVOT Value Ascending aorta Value Diam, S 2.1 cm AAo AP diam, S 3.1 cm Area 3.4 cm^2 AAo AP diam/bsa, S 1.6cm/m^2 Peak josue, S 101 cm/sec Mean josue, S 66.8 cm/sec Pulmonary artery Value VTI, S 21.3 cm Pressure, S 41 mmHg Peak grad, S 4 mm Hg SV 73 ml Systemic veins Value SV/bsa 37 ml/m^2 Estimated CVP 8 mmHg Right ventricle Value JOJO, LAX 2.7 cm JOJO 2.7 cm Pressure, S 47 mm Hg Legend: (L) and (H) lola values outside specified reference range. [facility] are accredited with theIntersocietal Accreditation Commission - Echocardiography. Prepared and Electronically Authenticated Mitch Jarrell Confirmed 02/16/2025 15:47 us Rigoberto Hinton MD US ORDERABLES Final Res ult INTERFACE SYSTEM Refer to clinic/hospital department * XR CYSTOGRAM (02/16/2025 9:16 AM CDT) Anatomical Region Laterality Modality Pelvis Computed Radiogr aphy 02/16/2025 9:19 AM CDT Impressions 02/16/2025 9:56 AM CDT Impression: 1. Patent urinary bladder without gross extravasation. Narrative 02/16/2025 9:56 AM CDT Exam: XR CYSTOGRAM Date/Time of Exam: 02/16/2025 9:16 AM Reason For Exam: Other - Please see comments, Comment: s/p bladder fistula repair. evaluate the integrity of the bladder.. Structures Assembler view of the pelvis shows surgical clips over the pelvic inlet. Nondistended bowel gas pattern. This procedure was performed and preliminary findings dictated by Rod Marquez PA-C. Supervision and final interpretation by Dr. Moffett. After sterile placement of a catheter in the bladder by the technologist, 275 mL of Cystografin was instilled into the bladder using gravity control. The bladder is normal in size and has normal contours. No filling defects are identified. There was no vesicoureteral reflux. No extravasation identified. No significant post drain residual. Procedure Note Arden Moffett MD - 02/16/2025 Exam: XR CYSTOGRAM Date/Time of Exam: 02/16/2025 9:16 AM Reason For Exam: Other - Please see comments, Comment: s/p bladder fistula repair. evaluate the integrity of the bladder.. Structures Assembler view of the pelvis shows surgical clips over the pelvic inlet. Nondistended bowel gas pattern. This procedure was performed and preliminary findings dictated by Rod Marquez PA-C. Supervision and final interpretation by Dr. Moffett. After sterile placement of a catheter in the bladder by the technologist, 275 mL of Cystografin was instilled into the bladder using gravity control. The bladder is normal in size and has normal contours. No filling defects are identified. There was no vesicoureteral reflux. No extravasation identified. No significant post drain residual. Impression: 1. Patent urinary bladder without gross extravasation. Rosalind Quiñones DO DIAGNOSTIC IMAGING ORDERABLE S Final Result * (ABNORMAL) MAGNESIUM LEVEL (02/15/2025 5:57 AM CDT) Only the most recent of2 resultswithin the time period is included. MAGNESIUM 1.4(L) 1.6 - 2.4 mg/dL 02/15/2025 6:43 AM CDT [facility] Blood Venipuncture / Unknown 02/15/2025 5:57 AM CDT 02/15/2025 6:08 AM CDT Irene Mary MD CHEMISTRY ORDERABLES Final Resu lt Performing Organization Address [facility] Co de Phone Number [facility] CLIA # [id number] [address] [address] * (ABNORMAL) CK (02/14/2025 2:19 PM CDT) Only the most recent of4 resultswithin the time period is included. CK 12(L) 26 - 192 U/L 02/14/2025 3:41 PM CDT [facility] Blood Venipuncture / Unknown 02/14/2025 2:19 PM CDT 02/14/2025 3:01 PM CDT Sharon Baca MD CHEMISTRY ORDERABLES Final Re sult Performing Organization Address [facility] de Phone Number [facility] CLIA # [id number] [address] [address] * US VENOUS DOPPLER LEG BILATERAL (02/14/2025 7:30 AM CDT) Anatomical Region Laterality Modality Lower Extremity Ultrasound 02/14/2025 7:16 AM CDT Narrative 02/14/2025 8:47 AM CDT [facility] Noninvasive Vascular Laboratory [address] [place] [id number] Noninvasive Vascular Lab Venous Exam Complete Lower Extremity Duplex Patient: Tayler Reveles Study ID: US VENOUS DOPPLE Gender: F : 1960 Age: 64 Room: 6258 Height: Weight: BSA: Pt status: Inpatient Study Date: 02/14/2025 Study Time: 07:16:30 AM BSA: Ordering: Roberto Carlos Neal Interpreting:Mitch Jarrell Aquatic Laborer: Riky Dawn Indications: DVT. Summary Impression: 1. Study demonstrates acute deep vein thrombosis involving the the right common femoral vein and the right femoral vein. No prior study available for comparison. 2. No evidence of deep or superficial venous thrombosis involving the left lower extremity. Study data: Complete lower extremity venous duplex evaluation. Doppler flow study including spectral analysis, color and moore scale imaging. Location: Bedside. Patient status: Inpatient. Study status: STAT. Procedure: A vascular evaluation was performed. Image quality was good. Venous flow and imaging: - Right common femoral Partially thrombosed; Partially compressible Acute - Right profunda femoral Patent; Normal phasicity; spontaneous; compressible; normal augmentation - Right femoral Thrombosed; Noncompressible Acute - Right popliteal Patent; Normal phasicity; spontaneous; compressible; normal augmentation - Right posterior tibial Patent; Compressible; normal augmentation - Right peroneal Patent; Compressible; normal augmentation - Right great saphenous Compressible - Right gastrocnemius Compressible - Left common femoral Patent; Normal phasicity; spontaneous; compressible; normal augmentation - Left profunda femoral Patent; Normal phasicity; spontaneous; compressible; normal augmentation - Left femoral Patent; Normal phasicity; spontaneous; compressible; normal augmentation - Left popliteal Patent; Normal phasicity; spontaneous; compressible; normal augmentation - Left posterior tibial Patent; Compressible; normal augmentation - Left peroneal Patent; Compressible; normal augmentation - Left great saphenous Compressible - Left gastrocnemius Compressible CRITICAL FINDINGS - Reported to: NATI Reveles - Read back and verified. - 02/14/25843 - DVT right CFV and SFV [facility] is accredited with the Intersocietal Commission for the Accreditation of Vascular Laboratories (ICAVL) Prepared and Electronically Authenticated Mitch Jarrell Confirmed 02/14/2025 08:47 Procedure Note Mitch Jarrell MD - 02/14/2025 [facility] Noninvasive Vascular Laboratory [address] [place] [id number] Noninvasive Vascular Lab Venous Exam Complete Lower Extremity Duplex Patient: Tayler Reveles Study ID: US VENOUS DOPPLE Gender: F : 1960 Age: 64 Room: [facility] Height: Weight: BSA: Pt status: Inpatient Study Date: 02/14/2025 Study Time: 07:16:30 AM BSA: Ordering: Roberto Carlos Neal Interpreting:Mitch Jarrell Aquatic Laborer: Riky Dawn Indications: DVT. Summary Impression: 1. Study demonstrates acute deep vein thrombosis involving the the right common femoral vein and the right femoral vein. No prior studyavailable for comparison. 2. No evidence of deep or superficial venous thrombosis involving theleft lower extremity. Study data: Complete lower extremity venous duplex evaluation.Doppler flow study including spectral analysis, color and moore scale imaging. Location: Bedside. Patient status: Inpatient. Study status:STAT. Procedure: A vascular evaluation was performed. Image quality was good. Venous flow and imaging: - Right common femoral Partially thrombosed; Partially compressibleAcute - Right profunda femoral Patent; Normal phasicity; spontaneous;compressible; normal augmentation - Right femoral Thrombosed; Noncompressible Acute - Right popliteal Patent; Normal phasicity; spontaneous; compressible;normal augmentation - Right posterior tibial Patent; Compressible; normal augmentation - Right peroneal Patent; Compressible; normal augmentation - Right great saphenous Compressible - Right gastrocnemius Compressible - Left common femoral Patent; Normal phasicity; spontaneous;compressible; normal augmentation - Left profunda femoral Patent; Normal phasicity; spontaneous;compressible; normal augmentation - Left femoral Patent; Normal phasicity; spontaneous; compressible;normal augmentation - Left popliteal Patent; Normal phasicity; spontaneous; compressible;normal augmentation - Left posterior tibial Patent; Compressible; normal augmentation - Left peroneal Patent; Compressible; normal augmentation - Left great saphenous Compressible - Left gastrocnemius Compressible CRITICAL FINDINGS - Reported to: NATI Reveles - Read back and verified. - 02/14/25843 - DVT right CFV and SFV [facility] is accredited with theIntersocietal Commission for the Accreditation of Vascular Laboratories (ICAVL) Prepared and Electronically Authenticated Mitch Jarrell Confirmed 02/14/2025 08:47 us Roberto Carlos Neal MD US ORDERABLES Final Result * (ABNORMAL) PTT (02/13/2025 3:56 PM CDT) Only the most recent of2 resultswithin the time period is included. PTT 58.8(H) 24.8 - 37.2 seconds 02/13/2025 4:22 PM CDT [facility] [facility] Blood Venipuncture / Unknown 02/13/2025 3:56 PM CDT 02/13/2025 4:07 PM CDT Narrative [facility] - 02/13/2025 4:22 PM CDT Therapeutic Range: Hi-level PE/DVT heparin protocol 80.1 - 95.0 sec Lo-level PE/DVT heparin protocol 70.1 - 85.0 sec Cardiac Heparin Protocol 70.1 - 100.0 sec us Curtis BARR HEMATOLOGY ORDERABLES Final Result [facility] CLIA # [id number] [address] [place] [address] * CTA CHEST + ABD/PEL W CONTRAST (02/13/2025 10:25 AM CDT) Anatomical Region Laterality Modality Chest, Abdomen, Pelvis Computed Tomography 02/13/2025 10:0 4 AM CDT Impressions 02/13/2025 11:12 AM CDT CTA CHEST IMPRESSION: Right lower lobe extensive PE from the lobar and subsegmental arteries. Right Heart strain is not present. RV/LV ratio is less than 0.9 Right lower lobe moderate atelectasis/consolidation. Pulmonary infarction is considered. Small right pleural effusion. Mildly enlarged mediastinal right hilar lymph nodes, nonspecific. Reactivity versus metastatic disease are leading considerations. ABDOMEN/PELVIS: LIVER AND BILIARY: Liver demonstrates mild steatosis. No evidence of intrahepatic biliary dilatation. PANCREAS: The pancreas enhances normally and is otherwise unremarkable. SPLEEN: Splenic 2 cm low-attenuation lesion is again noted. KIDNEYS: The kidneys enhance symmetrically and do not show evidence of hydronephrosis. ADRENALS: The adrenal glands are unremarkable. LYMPH NODES: Retroperitoneal lymphadenopathy is again noted. Mildly enlarged pelvic lymph nodes are present. BOWEL: Bowel caliber is within normal limits without evidence of surrounding stranding/inflammation. Postsurgical changes of the colon are noted. Ventral abdominal surgical wound is present. Mild subcutaneous emphysema is present likely from recent surgery. No rim-enhancing abscess is appreciated. PERITONEUM: No free air underneath the hemidiaphragms is present. Trace free fluid is noted in the abdomen and pelvis likely postsurgical. Soft tissue lesions within the pelvis at the site of the FDG avid mass are noted measuring 2.5 x 2.1 cm slightly to the left on image 318 series 8 and 2.1 x 2 cm slightly to the right. URINARY BLADDER/ADNEXA: Urinary bladder shows severe wall thickening and contains a Lanza catheter. No suspicious adnexal mass is seen. AORTA/VASCULAR: Abdominal aorta is non-aneurysmal. BONES: Review of bone windows does not reveal a suspicious osseous lesion. IMPRESSION: 1. Pelvic masses compatible with residual disease. There is severe urinary bladder wall thickening. Urinary bladder wall involvement by the pelvic malignancy is considered. 2. No significant change of the FDG avid splenic lesion concerning for malignancy. 3. Retroperitoneal and pelvic lymphadenopathy compatible with metastatic disease. 4. Mild hepatic steatosis and other findings as above The findings and/or imaging diagnoses in the above impression have been deemed a critical result by the interpreting radiologist and immediately reported as such to the ordering physician or appropriate licensed caregiver in accordance with current radiology department policy. Narrative 02/13/2025 11:12 AM CDT CTA CHEST + ABD/PEL W CONTRAST; Reason For Exam: Concer for possible PE, however also had recent hysterectomy with fistula repair. Has new onset pain. Diagnosis: See Reason for Exam. COMPARISON: 01/17/2025. TECHNIQUE: During the administration of nonionic intravenous contrast, helical scanning was obtained of the chest. The patient tolerated the procedure and there were no immediate complications. Coronal, sagittal and MIP reformations were reconstructed. FINDINGS: PULMONARY ARTERIES: Extensive PE is noted within the right lower lobe that is near occlusive extending from the lobar to segmental/subsegmental arteries. HEART: Heart size is within normal limits for age. RV/LV INDEX: RV/LV index is < 0.9 LUNGS: Moderate right lower lobe atelectasis/consolidation is present with areas of groundglass attenuation. PLEURA: Small right pleural effusion. LYMPH NODES: Mildly enlarged mediastinal and right hilar lymph nodes are noted. AORTA: Visualized portions of the aorta is within normal limits for age. OSSEOUS STRUCTURES: The visualized skeletal structures are intact. Procedure Note Dion Lewis MD - 02/13/2025 CTA CHEST + ABD/PEL W CONTRAST; Reason For Exam: Concer for possible PE, however also had recent hysterectomy with fistula repair. Has new onset pain. Diagnosis: See Reason for Exam. COMPARISON: 01/17/2025. TECHNIQUE: During the administration of nonionic intravenous contrast, helical scanning was obtained of the chest. The patient tolerated the procedure and there were no immediate complications. Coronal, sagittal and MIP reformations were reconstructed. FINDINGS: PULMONARY ARTERIES: Extensive PE is noted within the right lower lobe that is near occlusive extending from the lobar to segmental/subsegmental arteries. HEART: Heart size is within normal limits for age. RV/LV INDEX: RV/LV index is < 0.9 LUNGS: Moderate right lower lobe atelectasis/consolidation is present with areas of groundglass attenuation. PLEURA: Small right pleural effusion. LYMPH NODES: Mildly enlarged mediastinal and right hilar lymph nodes are noted. AORTA: Visualized portions of the aorta is within normal limits for age. OSSEOUS STRUCTURES: The visualized skeletal structures are intact. CTA CHEST IMPRESSION: Right lower lobe extensive PE from the lobar and subsegmental arteries. Right Heart strain is not present. RV/LV ratio is less than 0.9 Right lower lobe moderate atelectasis/consolidation. Pulmonary infarction is considered. Small right pleural effusion. Mildly enlarged mediastinal right hilar lymph nodes, nonspecific. Reactivity versus metastatic disease are leading considerations. ABDOMEN/PELVIS: LIVER AND BILIARY: Liver demonstrates mild steatosis. No evidence of intrahepatic biliary dilatation. PANCREAS: The pancreas enhances normally and is otherwise unremarkable. SPLEEN: Splenic 2 cm low-attenuation lesion is again noted. KIDNEYS: The kidneys enhance symmetrically and do not show evidence of hydronephrosis. ADRENALS: The adrenal glands are unremarkable. LYMPH NODES: Retroperitoneal lymphadenopathy is again noted. Mildly enlarged pelvic lymph nodes are present. BOWEL: Bowel caliber is within normal limits without evidence of surrounding stranding/inflammation. Postsurgical changes of the colon are noted. Ventral abdominal surgical wound is present. Mild subcutaneous emphysema is present likely from recent surgery. No rim-enhancing abscess is appreciated. PERITONEUM: No free air underneath the hemidiaphragms is present. Trace free fluid is noted in the abdomen and pelvis likely postsurgical. Soft tissue lesions within the pelvis at the site of the FDG avid mass are noted measuring 2.5 x 2.1 cm slightly to the left on image 318 series 8 and 2.1 x 2 cm slightly to the right. URINARY BLADDER/ADNEXA: Urinary bladder shows severe wall thickening and contains a Lanza catheter. No suspicious adnexal mass is seen. AORTA/VASCULAR: Abdominal aorta is non-aneurysmal. BONES: Review of bone windows does not reveal a suspicious osseous lesion. IMPRESSION: 1. Pelvic masses compatible with residual disease. There is severe urinary bladder wall thickening. Urinary bladder wall involvement by the pelvic malignancy is considered. 2. No significant change of the FDG avid splenic lesion concerning for malignancy. 3. Retroperitoneal and pelvic lymphadenopathy compatible with metastatic disease. 4. Mild hepatic steatosis and other findings as above The findings and/or imaging diagnoses in the above impression have been deemed a critical result by the interpreting radiologist and immediately reported as such to the ordering physician or appropriate licensed caregiver in accordance with current radiology department policy. us Amparo Virk MD CT ORDERABLES Final Result * EKG 12-LEAD (02/13/2025 10:21 AM CDT) Only the most recent of3 resultswithin the time period is included. Narrative Kyle Marie RCP - 02/13/2025 10:21 AM CDT Amparo Virk MD 02/13/2025 12:00 PM EKG 12-LEAD Date/Time: 02/13/2025 10:21 AM Performed by: Amparo Virk MD Authorized by: Amparo Virk MD ECG interpreted by ED Physician in the absence of a enrollment representative: yes Rate: ECG rate: 115 ECG rate assessment: tachycardic Rhythm: Rhythm Origin: sinus Ectopy: Ectopy occurance: frequent Ectopy origin: PVCs Intervals: normal QRSTT: QRSTT changes: Yes Comments: Nonspecific ST segment abnormalities. T wave inversion in lead V2. Procedure Note Day, Amparo Santiago MD - 02/13/2025 8:36 AM CDT HISTORY OF PRESENT ILLNESS Tayler Reveles, a 64 y.o. female presents to the ED with a ChiefComplaint of Shortness of Breath Subjective The patient, with a history of asthma and recent surgery 4 weeks ago forectomy and utero-colonic fistula, presents with shortness of breath thatstarted suddenly yesterday afternoon. The patient reports difficultybreathing, stating I keep catching my breath and affirms that it hurtsto breathe. Associated symptoms include loss of appetite, fatigue, a little bit ofnausea, excessive sweating, and abdominal pain. The patient denies chestpain, diarrhea, and fever. Their last bowel movement was last night, andthey deny any current passage of stool through the vagina or bladder. Patient still has wound VAC on and comes to have it replaced on thesuprapubic area 2 times per week at wound care. The patient has been following up with their surgical team twice a weekand has another appointment scheduled on February 23. 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 History provided by: The patient Arrived by: Private vehicle Arrived from: Home REVIEW OF SYSTEMS Review of Systems All other systems reviewed and are negative. 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 SURGICAL: Patient has a past surgical history that includes cholecystectomy (1988);carpal tunnel release; knee surgery; tonsillectomy; section; section; pr pelvic examination w/anesthesia other than local(N/A, 01/05/2025); pr cystourethroscopy (N/A, 01/05/2025); pr colonoscopyflx dx w/collj spec when pfrmd (N/A, 01/05/2025); pr colonoscopy w/biopsysingle/multiple (N/A, 01/05/2025); pr colsc flx w/rmvl of tumor polyplesion snare tq (N/A, 01/05/2025); pr total abdominal hysterect w/wo rmvltube ovary (N/A, 01/10/2025); pr lmtd lmphadec staging spx pel&para-aortic(N/A, 01/10/2025); pr colectomy partial w/anastomosis (N/A, 01/10/2025); prlmtd lmphadec staging spx pel&para-aortic (Bilateral, 01/10/2025);cystoscopy (N/A, 01/10/2025); bladder repair (N/A, 01/10/2025); ureterolysis(Bilateral, 01/10/2025); lysis of adhesions (N/A, 01/10/2025); and soft tissuetumor resection (N/A, 01/10/2025). FAMILY: Patient's family history includes Bone Cancer in her maternal grandmother;Breast Cancer (age of onset: 60 - 69) in her mother; Cancer in her mother;Hypertension in her mother, sister, and sister; Melanoma in her father. SOCIAL: reports that she has quit smoking. Her smoking use included cigarettes.She started smoking about 42 years ago. She has a 42.5 pack-year smokinghistory. She has never used smokeless tobacco. She reports that she doesnot drink alcohol and does not use drugs. No history on file. Social History Other Topics Concern Not on file ALLERGIES Acetaminophen and Fish derived HOME MEDICATIONS Patient's Home Medications Current Home Medications ALBUTEROL SULFATE HFA 90 MCG/ACTUATION AEROSOL INHALER FLUTICASONE FUROATE-VILANTEROL (BREO ELLIPTA) 100-25 MCG/DOSE DISK WITHDEVICE IBUPROFEN (ADVIL) 100 MG TABLET, CHEWABLE LOPERAMIDE (IMODIUM) 2 MG CAPSULE MECLIZINE (ANTIVERT) 25 MG TABLET ONDANSETRON (ZOFRAN) 4 MG TABLET OXYCODONE (ROXICODONE) 5 MG TABLET TRAZODONE (DESYREL) 50 MG TABLET UMECLIDINIUM (INCRUSE ELLIPTA) 62.5 MCG/ACTUATION DISK WITH DEVICE WALKER WITH WHEELS Medications Modified during this Encounter No medications on file Medications Discontinued during this Encounter No medications on file Objective PHYSICAL EXAM INITIAL VS BP: 96/70 (02/13/25 0843), Heart Rate: (!) 113 bpm (02/13/25842), Resp:24 (02/13/25842), Pulse: (!) 49 (02/13/25844), Temp: 97.4 F (36.3 C)(02/13/25842), Temp src: Temporal (02/13/25842), SpO2: 91 % (), Height: 5' 2 (157.5 cm) (02/13/25842), Weight: 87.7 kg (193 lb6.4 oz) (02/13/25842), BMI (Calculated): (!) 35.35 (02/13/25842) NoLMP recorded. Patient has had a hysterectomy. Physical Exam Vitals and nursing note reviewed. Constitutional: General: She is not in acute distress. Appearance: Normal appearance. She is well-developed and normal weight.She is ill-appearing. HENT: Head: Normocephalic. Mouth/Throat: Mouth: Mucous membranes are moist. Eyes: Extraocular Movements: Extraocular movements intact. Conjunctiva/sclera: Conjunctivae normal. Pupils: Pupils are equal, round, and reactive to light. Cardiovascular: Rate and Rhythm: Regular rhythm. Tachycardia present. Extrasystoles arepresent. Pulses: Normal pulses. Pulmonary: Effort: Pulmonary effort is normal. No respiratory distress. Breath sounds: Examination of the right-middle field reveals rales.Examination of the left-middle field reveals rales. Examination of theright-lower field reveals rales. Examination of the left-lower fieldreveals rales. Rales present. Chest: Chest wall: No mass or tenderness. Abdominal: Palpations: Abdomen is soft. Tenderness: There is abdominal tenderness. There is guarding. There isno rebound. Comments: Ventral suprapubic wound VAC in place without any erythemaaround the wound area. No discharge. No rebound tenderness Musculoskeletal: General: Normal range of motion. Cervical back: Normal range of motion and neck supple. Right lower leg: No tenderness. No edema. Left lower leg: No tenderness. No edema. Skin: General: Skin is warm and dry. Capillary Refill: Capillary refill takes less than 2 seconds. Coloration: Skin is not cyanotic or pale. Findings: No ecchymosis or erythema. Neurological: General: No focal deficit present. Mental Status: She is alert and oriented to person, place, and time.Mental status is at baseline. Cranial Nerves: No cranial nerve deficit. Psychiatric: Mood and Affect: Mood normal. Behavior: Behavior normal. DIAGNOSTICS LAB: CBC WITH DIFFERENTIAL - Abnormal Result Value WBC 13.9 (*) RBC 3.97 HEMOGLOBIN 12.0 HEMATOCRIT 36.5 MCV 91.9 MCH 30.2 MCHC 32.9 RDW 13.0 RDW-STDEV 44.1 PLATELETS 380 (*) MPV 8.8 (*) NEUTROPHILS 82 (*) LYMPHOCYTES 7 (*) MONOCYTES 9 EOSINOPHILS 1 BASOPHILS 1 IMMATURE GRANULOCYTES 0 NEUTROPHIL ABSOLUTE 11.35 (*) LYMPHOCYTE ABSOLUTE 0.99 (*) MONOCYTE ABSOLUTE 1.24 (*) EOSINOPHIL ABSOLUTE 0.15 BASOPHILS ABSOLUTE 0.07 IMMATURE GRANULOCYTES ABSOLUTE 0.06 PROTIME-INR - Abnormal PROTIME 14.4 (*) INR 1.1 D-DIMER - Abnormal D-DIMER QUANT 2.49 (*) SEDIMENTATION RATE - Abnormal ESR (SEDIMENTATION RATE) 87 (*) COMPREHENSIVE METABOLIC PANEL - Abnormal SODIUM 131 (*) POTASSIUM 3.8 CHLORIDE 95 (*) CO2 21 (*) CALCIUM 9.2 BUN 8 CREATININE 0.66 GLUCOSE 155 (*) TOTAL PROTEIN 7.1 ALBUMIN 3.3 (*) BILIRUBIN TOTAL 0.9 ALKALINE PHOSPHATASE 182 (*) AST 32 ALT 19 GFR >60 ANION GAP 15 LIPASE - Abnormal LIPASE 10 (*) BRAIN NATRIURETIC PEPTIDE, BNP OR PROBNP - Abnormal PROBNP, N TERMINAL 590 (*) C-REACTIVE PROTEIN - Abnormal CRP 213.0 (*) MAGNESIUM LEVEL - Abnormal MAGNESIUM 1.2 (*) URINALYSIS WITH REFLEX MICROSCOPIC - Abnormal COLOR UA Brown (*) CLARITY UA Cloudy (*) SPECIFIC GRAVITY UA 1.025 PH UA 7.0 LEUKOCYTE ESTERASE UA 1+ (*) NITRITE UA Positive (*) PROTEIN UA 3+ (*) GLUCOSE UA Trace (*) KETONES UA Unable to Evaluate (*) UROBILINOGEN UA Unable to Evaluate (*) BILIRUBIN UA Unable to Evaluate (*) BLOOD UA 1+ (*) URINALYSIS MICROSCOPY ONLY - Abnormal WBC UA 51-100 (*) RBC UA 26-50 (*) BACTERIA UA 3+ (*) EPITHELIAL CELLS, URINE 0-5 RENAL EPITHELIAL 6-10 (*) CALCIUM OXALATE, URINE Present (*) PTT - Normal PTT 25.9 LACTIC ACID - Normal LACTIC ACID 1.8 TROPONIN BASELINE, 5TH GEN - Normal TROPONIN T, BASELINE 5TH GEN 9 BLOOD CULTURE BLOOD CULTURE BLOOD CULTURE BLOOD CULTURE URINE CULTURE TROPONIN 2 HR, 5TH GEN CBC WITHOUT DIFFERENTIAL UNFRACTIONATED HEPARIN MONITORING RADIOLOGY: CTA CHEST + ABD/PEL W CONTRAST Radiologist Impression CTA CHEST IMPRESSION: Right lower lobe extensive PE from the lobar and subsegmental arteries. Right Heart strain is not present. RV/LV ratio is less than 0.9 Right lower lobe moderate atelectasis/consolidation. Pulmonary infarction is considered. Small right pleural effusion. Mildly enlarged mediastinal right hilar lymph nodes, nonspecific. Reactivity versus metastatic disease are leading considerations. ABDOMEN/PELVIS: LIVER AND BILIARY: Liver demonstrates mild steatosis. No evidence of intrahepatic biliary dilatation. PANCREAS: The pancreas enhances normally and is otherwise unremarkable. SPLEEN: Splenic 2 cm low-attenuation lesion is again noted. KIDNEYS: The kidneys enhance symmetrically and do not show evidence of hydronephrosis. ADRENALS: The adrenal glands are unremarkable. LYMPH NODES: Retroperitoneal lymphadenopathy is again noted. Mildly enlarged pelvic lymph nodes are present. BOWEL: Bowel caliber is within normal limits without evidence of surrounding stranding/inflammation. Postsurgical changes of the colon are noted. Ventral abdominal surgical wound is present. Mild subcutaneous emphysema is present likely from recent surgery. No rim-enhancing abscess is appreciated. PERITONEUM: No free air underneath the hemidiaphragms is present. Trace free fluid is noted in the abdomen and pelvis likely postsurgical. Soft tissue lesions within the pelvis at the site of the FDG avid mass are noted measuring 2.5 x 2.1 cm slightly to the left on image 318 series 8 and 2.1 x 2 cm slightly to the right. URINARY BLADDER/ADNEXA: Urinary bladder shows severe wall thickening and contains a Lanza catheter. No suspicious adnexal mass is seen. AORTA/VASCULAR: Abdominal aorta is non-aneurysmal. BONES: Review of bone windows does not reveal a suspicious osseous lesion. IMPRESSION: 1. Pelvic masses compatible with residual disease. There is severe urinary bladder wall thickening. Urinary bladder wall involvement by the pelvic malignancy is considered. 2. No significant change of the FDG avid splenic lesion concerning for malignancy. 3. Retroperitoneal and pelvic lymphadenopathy compatible with metastatic disease. 4. Mild hepatic steatosis and other findings as above The findings and/or imaging diagnoses in the above impression have been deemed a critical result by the interpreting radiologist and immediately reported as such to the ordering physician or appropriate licensed caregiver in accordance with current radiology department policy. EKG: PROCEDURES EKG 12-LEAD Date/Time: 02/13/2025 10:21 AM Performed by: Amparo Virk MD Authorized by: Amparo Virk MD ECG interpreted by ED Physician in the absence of a enrollment representative: yes Rate: ECG rate: 115 ECG rate assessment: tachycardic Rhythm: Rhythm Origin: sinus Ectopy: Ectopy occurance: frequent Ectopy origin: PVCs Intervals: normal QRSTT: QRSTT changes: Yes Comments: Nonspecific ST segment abnormalities. T wave inversion in lead V2. MEDICAL DECISION MAKING AND PLAN OF CARE Medical Decision Making Patient is here due to sudden onset of shortness of breath that startedyesterday, however patient also has been complaining of fatigue andelevated pulse rate. Currently concern for sepsis versus possible PE given shortness of breathand recent surgical intervention. Blood cultures were obtained and the patient was started on linezolid andZosyn based on recent cultures. Patient does have leukocytosis with a white count of 13.9, ESR and CRP aresignificantly elevated at 87/213. D-dimer is 2.49. Patient also has proBNP of 590 and troponin is 9. Renal function is appropriate and LFTs as well, although alkalinephosphatase is elevated as well at 182. Patient's lipase is negative, however magnesium is 1.2 and patient wasgiven a dose of magnesium sulfate 2 g IVPB. Patient's urine from the catheter was also obtained which showed positivefor leukocyte esterase, nitrite, 3+ protein 3+ bacteria, WBCs and RBCs. Will obtain CTA of the chest plus CT of A/P with contrast for evaluationof PE but also evaluation of the abdomen pelvis for any otherabnormality. Vital signs remain stable and pulse rate is fluctuating between 101 15bpm. Oxygen is between 90 and 92% on room air. EKG showed no significant abnormality of concern at this time. CTA of the chest showed acute PE with pulmonary infarct of right lowerlobe. Additionally CT of the abdomen pelvis with contrast revealed possiblemetastasis to various parts of the retroperitoneum and other organsincluding bladder that needs further evaluation. Urinalysis showed cystitis. Patient stated that her wound where the wound VAC does not bleed and giventhe risks of the PE getting worse, will start patient on the heparin drip,as benefit of treating the PE outweighs the risk of not treating it andbleeding. Will monitor patient closely. Reached out to [facility] and patient was accepted for ER to [facility]. Patient is in agreement with the plan of transfer. Amount and/or Complexity of Data Reviewed Labs: ordered. Radiology: ordered. ECG/medicine tests: ordered and independent interpretation performed. Risk Prescription drug management. Clinical Scoring & Consults Medications Administered During the ED Stay from 02/13/2025 0837 to02/13/2025 1200 Date/Time Order Dose Route Action 02/13/2025 1143 CDT sodium chloride flush injection 10 mL 10 mL IV Given 02/13/2025 1000 CDT magnesium SULFATE in water 2 gram/50 mL (4 %) IVPB 2Gram 2 Gram IV New Bag 02/13/2025 1059 CDT linezolid in dextrose 5% (ZYVOX) 600 mg/300 mLinfusion 600 mg 0 mg IV Stopped 02/13/2025 0959 CDT linezolid in dextrose 5% (ZYVOX) 600 mg/300 mLinfusion 600 mg 600 mg IV New Bag 02/13/2025 1019 CDT iopamidoL (ISOVUE-300) 61% injection (single-usevial) 100 mL 100 mL IV Contrast Given 02/13/2025 1019 CDT sodium chloride bacteriostatic 0.9 % injection 10 mL10 mL IV Given 02/13/2025 1134 CDT heparin injection 7,000 Units 7,000 Units IV Given 02/13/2025 1143 CDT heparin in 0.45% NaCl 25,000 unit/250 mL infusion 18Units/kg/hr IV New Bag . 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 See after visit summary for patient education ondischarged patients. 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) [C78.6] Amparo Virk MD 02/13/2025 11:23 AM Acute cystitis with hematuria [N30.01] Amparo Virk MD 02/13/2025 11:31AM Pulmonary infarct (CMS/HCC) [I26.99] Amparo iVrk MD 02/13/2025 11:31AM Amparo Virk MD ECG ORDERABLES Final Result * (ABNORMAL) URINALYSIS MICROSCOPY ONLY (02/13/2025 9:30 AM CDT) WBC UA 51-100(A) 0 - 2 /hpf 02/13/2025 9:49 AM CDT [facility] RBC UA 26-50(A) 0 - 2 /hpf [facility] 3+(A) Negative /hpf 02/13/2025 9:49 AM [facility] EPITHELIAL CELLS, URINE 0-5 0 - 5 /hpf 02/13/2025 9:49 AM [facility] RENAL EPITHELIAL 6-10(A) None Seen /hpf 02/13/2025 9:49 AM [facility] CALCIUM OXALATE, URINE Present(A ) Absent 02/13/2025 9:49 AM [facility] Urine URINE SPECIMEN OBTAINED BY CLEAN CATCH PROCEDURE / Unknown Collection / Unknown 02/13/2025 9:30 AM CDT 02/13/2025 9:37 AM CDT Amparo Virk MD URINE ORDERABLES Final Result [facility] CLIA # [id number] [address] [place] [address] * (ABNORMAL) URINALYSIS WITH REFLEX MICROSCOPIC (02/13/2025 9:30 AM CDT) COLOR UA Brown(A) Pale to Dark Yellow 02/13/2025 9:49 AM [facility] CLARITY UA Cloudy(A) Clear 02/13/2025 9:49 AM [facility] SPECIFIC GRAVITY UA 1.025 1.003 - 1.035 02/13/2025 9:49 AM [facility] PH UA 7.0 5.0 - 8.0 02/13/2025 9:49 AM [facility] LEUKOCYTE ESTERASE UA 1+(A) Negative 02/13/2025 9:49 AM [facility] NITRITE UA Positive(A ) Negative 02/13/2025 9:49 AM [facility] PROTEIN UA 3+(A) Negative 02/13/2025 9:49 AM [facility] GLUCOSE UA Trace(A) Negative 02/13/2025 9:49 AM [facility] KETONES UA Unable to Evaluate(A ) Negative 02/13/2025 9:49 AM [facility] Comment:MEDICATION/COLOR INT ERFERENCE UROBILINOGEN UA Unable to Evaluate(A ) <2.0 mg/dL 02/13/2025 9:49 AM [facility] Comment:MEDICATION/COLOR INT ERFERENCE BILIRUBIN UA Unable to Evaluate(A ) Negative 02/13/2025 9:49 AM [facility] Comment:MEDICATION/COLOR INT ERFERENCE BLOOD UA 1+(A) Negative 02/13/2025 9:49 AM CDT [facility] Urine URINE SPECIMEN OBTAINED BY CLEAN CATCH PROCEDURE / Unknown Collection / Unknown 02/13/2025 9:30 AM CDT 02/13/2025 9:37 AM CDT Amparo Virk MD URINE ORDERABLES Final Result [facility] CLIA # [id number] [address] [place] [address] * (ABNORMAL) URINE CULTURE (02/13/2025 9:30 AM CDT) CULTURE CITROBACTER FREUNDII(A) BIJU MCG/ML 02/16/2025 7:52 AM CDT [facility] Urine URINE SPECIMEN OBTAINED BY CLEAN CATCH PROCEDURE / Unknown Collection / Unknown 02/13/2025 9:30 AM CDT 02/13/2025 9:37 AM CDT Narrative Organism Antibiotic Method Susceptibility Citrobacter freundii CEFEPIME BIJU MCG/ML <=1 mcg/mL: Susceptible Citrobacter freundii CEFTRIAXONE BIJU MCG/ML 16 mcg/mL: Resistant Comment:Enterobacter , Klebsiella (formerly Enterobacter) aerogenes, Citrobacter, and Serratia species may develop resistance during prolonged therapy with third-generation cephalosporins even if they initially test as susceptible. If clinically indicated, repeat culturing after several days of therapy should be considered if a third-generation cephalosporin is used. Citrobacter freundii CEFTAZIDIME BIJU MCG/ML >=64 mcg/mL: Resistant Citrobacter freundii GENTAMICIN BIJU MCG/ML <=1 mcg/mL: Susceptible Citrobacter freundii TOBRAMYCIN BIJU MCG/ML <=1 mcg/mL: Susceptible Citrobacter freundii CIPROFLOXACIN BIJU MCG/ML <=0.25 mcg/mL: Susceptible Citrobacter freundii LEVOFLOXACIN BIJU MCG/ML 0.25 mcg/mL: Susceptible Citrobacter freundii TRIMETHOPRIM/ SULFAMETHOXAZOLE BIJU MCG/ML <=20 mcg/mL: Susceptible Citrobacter freundii NITROFURANTOIN BIJU MCG/ML 32 mcg/mL: Susceptible Citrobacter freundii PIPERACILLIN/ TAZOBACTAM BIJU MCG/ ML 16 mcg/mL: S-DD Comment:Breakpoints for SDD (Susceptible-Dose Dependent) are based on a dosage regimen of 4.5g administered every 8h as a 4h infusion. Comment:Aminoglycosides shou ld not be used as monotherapy for infections outside the urinary tract. Consultation with an infectious diseases specialist is recommended. Roberto Carlos Neal MD MICROBIOLOGY - GENERAL ORDERABL ES Final Result Performing Organization Address [facility] Co de Phone Number [facility] CLIA # [id number] [address] [place] [address] * TROPONIN BASELINE, 5TH GEN (02/13/2025 9:08 AM CDT) TROPONIN T, BASELINE 5TH GEN 9 <=10 ng/L 02/13/2025 9:41 AM CDT [facility] Blood Venipuncture / Unknown 02/13/2025 9:08 AM CDT 02/13/2025 9:14 AM CDT Narrative [facility] - 02/13/2025 9:41 AM CDT Troponin Detectable but normal range. Amparo Virk MD CHEMISTRY ORDERABLES Final Resu lt Performing Organization Address [facility] Co de Phone Number [facility] CLIA # [id number] [address] [place] [phone] * LACTIC ACID (02/13/2025 9:08 AM CDT) LACTIC ACID 1.8 <=2.0 mmol/L 02/13/2025 9:36 AM CDT [facility] Blood BLOOD SPECIMEN / Unknown Venipuncture / Unknown 02/13/2025 9:08 AM CDT 02/13/2025 9:14 AM CDT Amparo Virk MD CHEMISTRY ORDERABLES Final Resu lt Performing Organization Address City/[facility]/ZIP Co de Phone Number [facility] CLIA # [id number] [address] [place] [phone] * BLOOD CULTURE (02/13/2025 9:08 AM CDT) Only the most recent of2 resultswithin the time period is included. [facility] BLOOD CULTURE No growth 02/18/2025 6:18 PM CDT [facility] Blood (Peripheral) Venipuncture / Unknown 02/13/2025 9:08 AM CDT 02/13/2025 9:16 AM CDT Amparo Virk MD MICROBIOLOGY - GENERAL ORDERABL ES Final Result Performing Organization Address [facility]/ZIP Co de Phone Number [facility] CLIA # [id number] [address] [address] * (ABNORMAL) SEDIMENTATION RATE (02/13/2025 9:08 AM CDT) [facility] ESR (SEDIMENTATION RATE) 87(H) 0 - 30 mm/Hr 02/13/2025 9:36 AM CDT [facility] Blood Venipuncture / Unknown 02/13/2025 9:08 AM CDT 02/13/2025 9:14 AM CDT Narrative [facility] - 02/13/2025 9:36 AM CDT Tube Lot: #[id number] Exp Date: 08/09/2026 SR 0125-1 EXP. 02/11/25 SR 0125-2 EXP. 02/11/25 Amparo Virk MD HEMATOLOGY ORDERABLES Final Res ult [facility] CLIA # [id number] [address] [place] [address] * (ABNORMAL) PROTIME-INR (02/13/2025 9:08 AM CDT) Only the most recent of2 resultswithin the time period is included. PROTIME 14.4(H) 12.1 - 14.3 Seconds 02/13/2025 9:58 AM CDT [facility] INR 1.1 0.9 - 1.1 02/13/2025 9:58 AM CDT [facility] Blood Venipuncture / Unknown 02/13/2025 9:08 AM CDT 02/13/2025 9:14 AM CDT us Amparo Virk MD HEMATOLOGY ORDERABLES Final Res ult [facility] CLIA # [id number] [address] [place] [address] * (ABNORMAL) D-DIMER (02/13/2025 9:08 AM CDT) D-DIMER QUANT 2.49(H) <0.50 ug/mL FEU 02/13/2025 9:41 AM CDT [facility] Blood Venipuncture / Unknown 02/13/2025 9:08 AM CDT 02/13/2025 9:14 AM CDT [facility] - 02/13/2025 9:41 AM CDT D-Dimer assay cutoff value for exclusion of DVT and/or PE is <0.50 ug/mL FEU. As D-Dimer levels increase naturally with age, age stratification for patients over 50 is potentially more appropriate in determining whether a patient should undergo further evaluation for DVT and/or PE than a general cutoff of 0.50 ug/mL FEU. Clinical consideration is recommended. Age Stratified Cutoff Values: 50-60 years: 0.50-0.60 ug/mL FEU 61-70 years: 0.61-0.70 ug/mL FEU 71-80 years: 0.71-0.80 ug/mL FEU us Amparo Virk MD HEMATOLOGY ORDERABLES Final Res ult [facility] CLIA # [id number] [address] [place] [address] * (ABNORMAL) C-REACTIVE PROTEIN (02/13/2025 9:08 AM CDT) Only the most recent of3 resultswithin the time period is included. CRP 213.0(H) <5.0 mg/L 02/13/2025 9:41 AM CDT [facility] Blood Venipuncture / Unknown 02/13/2025 9:08 AM CDT 02/13/2025 9:14 AM CDT us Amparo Virk MD CHEMISTRY ORDERABLES Final Resu lt Performing Organization Address [id number] [address] [place] [phone] * (ABNORMAL) BRAIN NATRIURETIC PEPTIDE, BNP OR PROBNP (02/13/2025 9:08 AM CDT) PROBNP, N TERMINAL 590(H) 0 - 125 pg/mL 02/13/2025 9:41 AM CDT [facility] Comment: INTERPRETIVE COMMENT based on diagnosis: Diagnostic NT pro-BNP cutoffs for Heart Failure in the absence of renal failure is suggested for the following ranges <75 years: <125 pg/mL >=75 years: <450 pg/mL Exclusionary rule out cut-point for Acute Decompensated Heart Failure(ADHF) All ages: <300 pg/mL Diagnostic NT pro-BNP cutoffs for Acute Decompensated Heart Failure(ADHF) in the absence of renal failure is suggested for the following ages <50 years: > 450 pg/mL 50-75 years: > 900 pg/mL >75 years: >1800 pg/mL Blood Venipuncture / Unknown 02/13/2025 9:08 AM CDT 02/13/2025 9:14 AM CDT us Amparo Virk MD CHEMISTRY ORDERABLES Final Resu lt Performing Organization Address City/[facility] Co de Phone Number [facility] CLIA # [id number] [address] [place] [address] * (ABNORMAL) LIPASE (02/13/2025 9:08 AM CDT) Pathologist [facility] LIPASE 10(L) 13 - 60 U/L 02/13/2025 9:41 AM CDT [facility] Blood Venipuncture / Unknown 02/13/2025 9:08 AM CDT 02/13/2025 9:14 AM CDT Amparo Virk MD CHEMISTRY ORDERABLES [facility] lt [id number] [address] [place] [address] * (ABNORMAL) BASIC METABOLIC PANEL (01/19/2025 4:19 AM CDT) Only the most recent of9 resultswithin the time period is included. [facility] SODIUM 134(L) 136 - 145 mmol/L 01/19/2025 5:37 AM T [facility] POTASSIUM 3.0(L) 3.5 - 5.1 mmol/L 01/19/2025 5:37 AM T [facility] CHLORIDE 100 98 - 107 mmol/L 01/19/2025 5:37 AM T [facility] CO2 23 22 - 29 mmol/L 01/19/2025 5:37 AM T [facility] CALCIUM 7.4(L) 8.8 - 10.2 mg/dL 01/19/2025 5:37 AM T [facility] BUN 6(L) 8 - 23 mg/dL 01/19/2025 5:37 AM [facility] CREATININE 0.61 0.51 - 0.95 mg/dL 01/19/2025 5:37 AM T [facility] GLUCOSE 124(H) 74 - 99 mg/dL 01/19/2025 5:37 AM [facility] GFR >60 >=60 mL/min/1.7 3 sq meter 01/19/2025 5:37 AM CDT [facility] Comment:eGFR calculated with 2020 CKD-EPI equation. Vegetarian diet, extremely high or low muscle mass, and may affect results. Cystatin C with Glomerular Filtration Rate is a suitable alternative for these patients. ANION GAP 11 9 - 20 mmol/L 01/19/2025 5:37 AM CDT [facility] Blood Venipuncture / Unknown 01/19/2025 4:19 AM CDT 01/19/2025 4:59 AM CDT us Lowell Duarte MD CHEMISTRY ORDERABLES Final Resu lt [facility] CLIA # [id number] [address] [place] [id number] * INSERT PICC LINE (01/18/2025 6:08 PM CDT) Only the most recent of2 resultswithin the time period is included. Narrative Amara Silva RN - 01/18/2025 6:08 PM CDT Amara Silva RN 01/18/2025 6:17 PM VASCULAR ACCESS NOTE PICC PLACEMENT PATIENT NAME: Tayler Reveles DATE OF : 1960 CSN: [id number] DATE: 01/18/2025 Room: [address] [place] [address] Admit Date: 01/10/2025 Hospital day: LOS: 8 days LINE STATUS: PICC tip location in the SVC confirmed by [employer] 3CG technology. PICC okay to use. Adult PICC Line: Double Lumen 01/18/25 1740 Right: brachial vein 4 Fr 42 (Active) 01/18/25 174 brachial vein Earliest Known Present: 01/18/25 Present on Admission: No Orientation: Right: Size: 4 Fr PICC Length (cm): 42 PICC Line Lot #: [id number] PICC Line Dispatcher Chief Oil: Number of Insertion Attempts: 1 Insertion: Patient Tolerance: tolerated well;appears comfortable Insertion: Pain Prevention: Power Injectable Compatable: Yes Earliest Known Removed: Removal Indication: Removal Interventions: *Procedural Assist *Insertion of PICC line, w/o subcut port 01/18/251739 Inserted Catheter Length (cm) 40 01/18/251739 PICC Length Prior to Insertion (cm) 42 cm 01/18/251739 PICC Line (WDL) WDL 01/18/251739 Extremity Circumference, Mid-Upper (cm) 38 01/18/251739 PICC Exposed Catheter Length (cm) 2 cm 01/18/251739 Patency: Red flushes w/o difficulty;positive blood return 01/18/251739 Patency: Purple flushes w/o difficulty;positive blood return 01/18/251739 Line Interventions system flushed;IV capped 01/18/251739 Dressing Type/Securement antimicrobial dressing;secured w/ sterile tape strips;catheter securement device utilized 01/18/251739 Dressing Changed Date 01/18/25 01/18/251739 Tubing Changed Date 01/18/25 01/18/251739 Needleless Connector Changed Date 01/18/25 01/18/251739 Line Criteria [employer] teacher antibiotics 01/18/251739 Number of days: 0 PICC PROCEDURE Patient Identified with 2 identifiers Procedure explained and informed consent obtained Ultrasound assessment was performed to assess adequacy of vascular anatomy Adequate vessel was located Time out completed Insertion site cleansed for 30 seconds with Chlora-prep x2. Allowed to dry before initial needle stick. Max barrier process initiated Mask worn by Ms. Reveles for the full procedure 3ml of 1% lidocaine injected intradermally for comfort. Ultrasound utilized to guide venous access needle into vessel A guide wire was advanced through needle, needle then removed and dilator/sheath was advanced over guide wire. Guide wire removed Catheter was threaded to predetermined measurement [employer] 3cg tip location system was used throughout catheter advancement procedure Inner 3cg wire was removed. Line secured with statlock. Blood return obtained on all lumens Each lumen of catheter flushed with 10ml of Normal Saline Secure port adhesive used Yes 1 attempts Neutral pressure cap(s) applied Antimicrobial cap(s) applied to neutral pressure cap Transparent antimicrobial dressing applied and date, time, and initial on dressing . Patient tolerated procedure well. Pre-Count supplies: Hypodermic needles: 1 Angiocath: 2 Scalpel: 1 Guidewire: 1 (intact: yes) Introducer wire: 1 (intact: yes) Post-Count supplies: Hypodermic needles: 1 Angiocath: 2 Scalpel: 1 Guidewire: 1 (intact: yes) Introducer wire: 1 (intact: yes) All supplies & equipment was accounted for & disposed of properly. Central line insertion checklist completed through [employer] flowsheet Catheter Associated Bloodstream Infection FAQs sheet was utilized & left at bedside. Amara Silva RN CARE AND MAINTENANCE NO BLOOD PRESSURES on arm with PICC line. Can remain in place for transactional attorney or short term vascular access as long as catheter insertion site & extremity remain asymptomatic Maximum infusion rate of 5ml/sec at 300psi for power injection of contrast media. Contrast Media should be warmed Power injection should only occur through lumens labeled power injectable Flush all lumens with 10ml normal saline after power injection Securely apply neutral OR positive pressure cap on lumens that are not in use Flush catheter with 10ml normal saline: 1. before blood draw 2. after every use 3. Between incompatible medications 4. and EVERY 12 HOURS (for all in-patients) Flush Catheter with 20ml of normal saline: 1. Prior to blood draw if infusing TPN 2. After all blood draw 3. After chemotherapy administration 4. After infusing TPN Flush catheter once weekly when not in use (in outpatient setting) Flush catheter using pulsating push-pause technique Always use 10ml or larger syringe Change dressing every 7 days using sterile technique Change dressing PRN using sterile technique when integrity of dressing is compromised, moisture, drainage, or blood is present, or for further assessment is needed. Rosalind Quiñones DO IV THERAPY ORDERABLES Edited Result - Final * (ABNORMAL) POC GLUCOSE (01/18/2025 5:59 PM CDT) Only the most recent of13 resultswithin the time period is included. GLUCOSE POC 120(H) 74 - 99 mg/dL 01/18/2025 5:59 PM CDT [facility] SPECIMEN SOURCE, GLUCOSE POC Capillary 01/18/2025 5:59 PM CDT [facility] Blood, whole 01/18/2025 5:59 PM CDT 01/18/2025 6:15 PM CDT us Lowell Duarte MD POINT OF CARE TESTING Final Res ult [facility] [id number] [address] [place] [address] * CT ABDOMEN PELVIS W CONTRAST (01/17/2025 3:54 PM CDT) Anatomical Region Laterality Modality Abdomen Computed Tomogra phy 01/17/2025 3:42 PM CDT Impressions 01/17/2025 4:39 PM CDT IMPRESSION: 1. No evidence of any abnormal fluid collections that would be suspicious for any abscess. 2. Strandy density in the omentum and mesentery suggesting inflammatory change. 3. Mildly dilated small bowel could represent ileus or small bowel obstruction. 4. Small amounts of free air would be consistent with recent abdominal surgery. Narrative 01/17/2025 4:39 PM CDT Exam: CT ABDOMEN PELVIS W CONTRAST Date/Time of Exam: 01/17/2025 3:54 PM Reason For Exam: Sepsis. Contiguous axial images were obtained through the abdomen and pelvis. Sagittal and coronal reformatted images are included. 100 mL of Isovue-300 was given intravenously. Comparison is to a prior study from 12/11/2024. An intraperitoneal drainage tube is present in the left lower quadrant. Open midline surgical wound is noted. Diffuse strandy density is present in the lower mesentery and omentum. No abnormal fluid collections are seen that would be suspicious for any abscess. The gallbladder is surgically absent. Hepatic parenchyma is diffusely hypodense consistent with diffuse hepatic fatty infiltration. There is no evidence of any abdominal aortic aneurysm or dissection. There is no evidence of any ureteral stones or any dilatation of the ureters or collecting systems. A few mildly dilated small bowel loops are noted on the left. Small unchanged splenic cyst is noted. Small amounts of free intraperitoneal air are present. The liver, spleen, pancreas, kidneys and adrenals are unremarkable. There is no evidence of abnormal soft tissue masses, abnormal fluid collections or adenopathy in the abdomen or pelvis. Procedure Note Geovani Conner MD - 01/17/2025 Exam: CT ABDOMEN PELVIS W CONTRAST Date/Time of Exam: 01/17/2025 3:54 PM Reason For Exam: Sepsis. Contiguous axial images were obtained through the abdomen and pelvis. Sagittal and coronal reformatted images are included. 100 mL of Isovue-300 was given intravenously. Comparison is to a prior study from 12/11/2024. An intraperitoneal drainage tube is present in the left lower quadrant. Open midline surgical wound is noted. Diffuse strandy density is present in the lower mesentery and omentum. No abnormal fluid collections are seen that would be suspicious for any abscess. The gallbladder is surgically absent. Hepatic parenchyma is diffusely hypodense consistent with diffuse hepatic fatty infiltration. There is no evidence of any abdominal aortic aneurysm or dissection. There is no evidence of any ureteral stones or any dilatation of the ureters or collecting systems. A few mildly dilated small bowel loops are noted on the left. Small unchanged splenic cyst is noted. Small amounts of free intraperitoneal air are present. The liver, spleen, pancreas, kidneys and adrenals are unremarkable. There is no evidence of abnormal soft tissue masses, abnormal fluid collections or adenopathy in the abdomen or pelvis. IMPRESSION: 1. No evidence of any abnormal fluid collections that would be suspicious for any abscess. 2. Strandy density in the omentum and mesentery suggesting inflammatory change. 3. Mildly dilated small bowel could represent ileus or small bowel obstruction. 4. Small amounts of free air would be consistent with recent abdominal surgery. Sharon Baca MD CT ORDERABLES Final Result * (ABNORMAL) ANAEROBIC/AEROBIC CULTURE W GRAM STAIN (01/17/2025 1:43 PM CDT) Only the most recent of3 resultswithin the time period is included. CULTURE VANCOMYCIN RESISTANT ENTEROCOCCUS(A) BIJU MCG/ML 01/20/2025 8:30 AM CDT [facility] CULTURE 1+ or few Morganella morganii(A) BIJU MCG/ML 01/20/2025 8:30 AM CDT [facility] GRAM STAIN 2+ (Few) Polymorphonuclear WBC 01/20/2025 8:30 AM CDT [facility] GRAM STAIN No organisms observed 01/20/2025 8:30 AM [facility] Abscess ABDOMEN AND PELVIS / Unknown Collection / Unknown 01/17/2025 1:43 PM CDT 01/17/2025 2:09 PM CDT Narrative [facility] - 01/20/2025 8:30 AM CDT VRE called to Ronda Gutierrez RN by Pat Zamora on 01/19/2025 at 8:13 AM with verbal readback. Specimen received on swabs. Tissue and fluid specimens are recommended for the optimal recovery of anaerobes. Organism Antibiotic Method Susceptibility Enterococcus faecium VRE AMPICILLIN BIJU MCG/ML >=32 mcg/mL: Resistant Enterococcus faecium VRE VANCOMYCIN BIJU MCG/ML >=32 mcg/mL: Resistant Enterococcus faecium VRE LINEZOLID BIJU MCG/ML 2 mcg/mL: Susceptible Enterococcus faecium VRE DAPTOMYCIN E TEST 4 mcg/mL: S-DD Comment:[facility] is based on a dosage regimen of 8-12 mg/kg administered every 24 h and is intended for serious infections due to E.faecium. Comment:If Inpatient, place patient in Contact Precautions - Gown and gloves for every entry into patient rooms. Morganella morganii CEFTRIAXONE BIJU MCG/ML <=1 mcg/mL: Susceptible Morganella morganii GENTAMICIN BIJU MCG/ML <=1 mcg/mL: Susceptible Morganella morganii TOBRAMYCIN BIJU MCG/ML <=1 mcg/mL: Susceptible Morganella morganii CIPROFLOXACIN BIJU MCG/ML <=0.25 mcg/mL: Susceptible Morganella morganii LEVOFLOXACIN BIJU MCG/ML <=0.12 mcg/mL: Susceptible Morganella morganii TRIMETHOPRIM/ SULFAMETHOXAZOLE BIJU MCG/ML <=20 mcg/mL: Susceptible Morganella morganii AMPICILLIN BIJU MCG/ML >=32 mcg/mL: Resistant Morganella morganii PIPERACILLIN/ TAZOBACTAM BIJU MCG/M L <=4 mcg/mL: Susceptible Comment:Aminoglycosides shou ld not be used as monotherapy for infections outside the urinary tract. Consultation with an infectious diseases specialist is recommended. us Rosalind Quiñones DO MICROBIOLOGY - GENERAL ORDER GLENIS Final Result [facility] NAVJOT # [id number] [address] [address] [place] [address] * XR POST SURGICAL INSTRUMENT COUNT (01/10/2025 8:00 PM CDT) Anatomical Region Laterality Modality Computed Radiogr aphy 01/10/2025 8:00 PM CDT Impressions 01/10/2025 8:07 PM CDT IMPRESSION: No abnormal radiopaque foreign body or surgical instrument. MACRO: None Narrative 01/10/2025 8:07 PM CDT EXAMINATION: XR POST SURGICAL INSTRUMENT COUNT CLINICAL HISTORY: ASSOCIATED DIAGNOSIS: Instrument Count Incorrect ORDERING PROVIDER: ROSALIND QUIÑONES TECHNCAROLINE NOTE: COMPARISON: None FINDINGS: The enteric tube terminates over the gastric body. Right upper quadrant cholecystectomy clips. Cutaneous naila overlie the lower mid abdomen and pelvis. A surgical drain projects over the mid and right pelvis. Two additional smaller caliber tubes project central pelvic tissues, likely also representing drains. Surgical clips project over the lumbar spine. The abdominal bowel gas pattern is nonobstructive. No dilated bowel or air-fluid levels. No visible pneumatosis. Procedure Note Meg Tovar MD - 01/10/2025 EXAMINATION: XR POST SURGICAL INSTRUMENT COUNT CLINICAL HISTORY: ASSOCIATED DIAGNOSIS: Instrument Count Incorrect ORDERING PROVIDER: ROSALIND QUIÑONES TECHNCAROLINE NOTE: COMPARISON: None FINDINGS: The enteric tube terminates over the gastric body. Right upper quadrant cholecystectomy clips. Cutaneous naila overlie the lower mid abdomen and pelvis. A surgical drain projects over the mid and right pelvis. Two additional smaller caliber tubes project central pelvic tissues, likely also representing drains. Surgical clips project over the lumbar spine. The abdominal bowel gas pattern is nonobstructive. No dilated bowel or air-fluid levels. No visible pneumatosis. IMPRESSION: No abnormal radiopaque foreign body or surgical instrument. MACRO: None Rosalind Quiñones DO DIAGNOSTIC IMAGING ORDERABLE S Final Result * PREPARE FRESH FROZEN PLASMA (01/10/2025 5:24 PM CDT) Only the most recent of4 resultswithin the time period is included. COMPONENT TYPE [id number] [facility] [place] [place] COMPONENT IDENTIFICATION [id number] [facility] [place] UNIT ABO O [facility] [place] [facility] RH POS [facility] [place] COMPONENT STATUS Returned [facility] [place] COMPONENT EXPIRATION DATE/TIME [facility] [place] COMPONENT CODING SYSTEM 5100 [facility] [place] VOLUME, BLOOD PRODUCT 363 [facility] [place] 01/10/2025 5:24 PM CDT us Rosalind Quiñones DO LAB TRANSFUSION ORDERABLES E dited Result - Final Performing Organization Address City/[facility]/ZIP Co de Phone Number [facility] [place] CLIA#[id number] [facility] [place] [address], * PREPARE RED BLOOD CELLS (01/10/2025 5:22 PM CDT) Only the most recent of4 resultswithin the time period is included. COMPONENT TYPE [id number] [facility] [place] COMPONENT IDENTIFICATION [id number] [facility] [place] UNIT ABO O [facility] [place] UN[facility] RH POS [facility] [place] CROSSMATCH Compatible [facility] [place] COMPONENT STATUS Returned [facility] [place] COMPONENT EXPIRATION DATE/TIME [id number] [facility] [place] COMPONENT CODING SYSTEM 5100 [facility] [place] VOLUME, BLOOD PRODUCT 350 [facility] [place] 01/10/2025 5:22 PM CDT us Rosalind Quiñones DO LAB TRANSFUSION ORDERABLES E dited Result - Final [facility] [place] CLIA#[id number] [address] [place] [address], * TRANSFUSE FROZEN PLASMA (01/10/2025 5:20 PM CDT) Only the most recent of2 resultswithin the time period is included. us Rosalind Quiñones DO BLOOD TRANSFUSION ORDERABLES Final Result * TRANSFUSE RED BLOOD CELLS (01/10/2025 5:19 PM CDT) Only the most recent of2 resultswithin the time period is included. Rosalind Quiñones DO BLOOD TRANSFUSION ORDERABLES Final Result * AFB CULTURE WITH STAIN (01/10/2025 3:55 PM CDT) CULTURE No acid fast bacilli isolated. 02/22/2025 10:11 AM CDT [facility] AFB STAIN No acid fast bacilli observed 02/22/2025 10:11 AM CDT [facility] Abscess ENTIRE PELVIS / Unknown Collection / Unknown 01/10/2025 3:55 PM CDT 01/10/2025 4:12 PM CDT Comment:pelvic absess [id number] Narrative [facility] - 02/22/2025 10:11 AM CDT Culture is held for a minimum of 6 weeks. Rosalind Quiñones DO MICROBIOLOGY - GENERAL ORDER GLENIS Final Result Performing Organization Address City/State/[facility] Co de Phone Number [facility] # [id number] [address] [place] [id number] * PATHOLOGY (01/10/2025 3:49 PM CDT) CASE REPORT Surgical Pathology Report Case: [id number] Authorizing Provider: Rosalind Quiñones DO Collected: 01/10/2025 03:49 PM Ordering Location: [facility] Received: 01/10/2025 03:55 PM Operating Room Pathologist: Baron Mejia MD Specimens: A) - Pelvic abscess B) - Sigmoid colon, rectum, left ovary, and appendix C) - Colon, sigmoid, Right colon and anastomotic rings D) - Periaortic lymph nodes, left E) - Periaortic lymph nodes, right F) - Pelvic lymph nodes, right G) - Pelvic lymph nodes, left H) - Uterus, Cervix, and left IP ligament 5 11:14 AM CDT [facility] ADDENDUM 2 On 01/16/25, three unstained slides from block B6 were sent to [facility] for FOLR1 analysis per Dr. Mejia. RESULTS: FOLR1: NEGATIVE Percentage of Cells with 2+ and/or 3+ Membrane Stainin% See full report scanned in chart. NOTE: Ancillary laboratory reports are scanned to the patient's electronic health record. To view in Epic, click Scan located under Results header immediately following this pathology report. FRANCES/costa [id number] 5 11:14 AM CDT [facility] Addendum electronically signed by Baron Mejia MD on 01/19/2025 at 1114 CDT ADDENDUM 1 HER2 Analysis by Immunohistochemistry (IHC) Tissue block analyzed: B6 Tissue type/source: Tubo-ovarian mass HER2 scoring criteria: Criteria used in To[employer] Trial for scoring HER2 expression by IHC in gastric and GE junction adenocarcinomas for surgical/resection specimens (see Notes below) Result: HER2 result by immunohistochemistry (IHC): 0 (negative) Notes: Scoring criteria utilized for biopsy specimens: HER2 score 0 (negative) = No reactivity or no membranous reactivity in any cancer cell HER2 score 1+ (negative) = Cancer cell cluster (5 or more cells) with faint or barely perceptible membranous reactivity irrespective of percentage of cancer cells positive HER2 score 2+ (equivocal) = Cancer cell cluster with weak to moderate complete, basolateral, or lateral membranous reactivity irrespective of percentage of cancer cells positive HER2 score 3+ (positive) = Cancer cell cluster with strong complete, basolateral, or lateral membranous reactivity irrespective of percentage of cancer cells positive Scoring criteria utilized for surgical/resection specimens: HER2 score 0 (negative) = No reactivity or membranous reactivity in <10% of cancer cells HER2 score 1+ (negative) = Faint or barely perceptible membranous reactivity in 10% or more of cancer cells; cells reactive only in part of their membrane HER2 score 2+ (equivocal) = Weak to moderate complete, basolateral, or lateral membranous reactivity in 10% or more of cancer cells HER2 score 3+ (positive) = Strong complete, basolateral, or lateral membranous reactivity in 10% or more of cancer cells Methodology: This analysis was performed on 10% buffered formalin-fixed paraffin-embedded tissue sections (exact fixation time not recorded, unless stated otherwise). Antibody employed: Her-2/johana (Clone 4B5). Detection of this antibody was accomplished using [employer] Ultra-View [employer] D[employer] Kit. Some of the tests or assays being used may not be cleared or approved by the U.S. FDA. These tests were developed and their performance characteristics validated by [facility]. This laboratory is certified under the Clinical Laboratory Improvement Amendments of 1988 (CLIA) as qualified to perform high complexity laboratory testing. Baron Mejia MD [id number] 11:14 AM CDT [facility] Addendum electronically signed by Baron Mejia MD on 01/18/2025 at 1346 CDT FINAL DIAGNOSIS A. 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 Colon, right colon and anastomotic rings, right hemicolectomy - High-grade serous carcinoma showing transmural involvement of the bowel wall (tumor focus measures) - The resection margins are negative for tumor, tumor is 3 mm to the nearest radial margin - Separately submitted anastomotic rings show colonic mucosa within normal limits - No tumor identified in twelve lymph nodes (0/12) D. Lymph nodes, left periaortic, excision - No tumor identified in three lymph nodes (0/3) E. Lymph nodes, right periaortic, excision - No tumor identified in three lymph nodes (0/3) F. Lymph nodes, right pelvic, excision - Metastatic high-grade serous carcinoma involving one (1) of five (5) lymph nodes (1/5) -The largest metastatic focus measures 2 mm - Extranodal extension is not identified G. Lymph nodes, left pelvic, excision - No tumor identified in six lymph nodes (0/6) H. Uterus, cervix, right ovary and fallopian tube, left IP ligament, hysterectomy and right salpingectomy - High-grade serous carcinoma arising in the right fallopian tube (0.3 cm) - The serosal surface of the anterior cervix is extensively involved by tumor, otherwise the endocervix and ectocervix are histologically unremarkable - The anterior lower uterine segment shows extensive transmural involvement by high-grade serous carcinoma, the posterior lower uterine segment shows extensive lymphovascular invasion by tumor - The anterior endomyometrium shows transmural involvement by high-grade serous carcinoma, the posterior endomyometrium shows endometrial involvement by high-grade serous carcinoma and myometrium with extensive lymphovascular invasion - Two benign endometrial polyps are identified - The myometrium shows 2 leiomyomas (1.9 cm in greatest dimension) - The right ovary is uninvolved - The left IP ligament shows focal extensively cauterized glands and chronic inflammation without definitive evidence of malignancy - See synoptic report REV: NAP (select slides) Baron Mejia MD [id number] 11:14 AM CDT [facility] at 1456 CDT GROSS DESCRIPTION A. Received fresh labeled [place] -uterine tissue is a 1.4 x 1.1 x 0.5 cm aggregate of james-pink, friable soft tissue fragments. The specimen is submitted entirely for frozen section diagnosis in A1. Frozen section diagnosis (Dr. Rosa): Poorly differentiated neoplasm, favor high-grade adenocarcinoma. REV:FRANCES B. Received fresh labeled [place] -sigmoid colon, rectum, left ovary and appendix is an en bloc resection including a left ovarian mass (13.2 x 11.5 x 8.3 cm), sigmoid colon and rectum (18.8 cm in length), with attached appendix (7.5 x 1.5 cm). There is a 4.3 x 2.4 cm area of disruption on the outer surface of the ovary. The remaining outer surface is extensively ragged with dense adhesions. Sectioning of the ovary reveals white-james to yellow heterogenous cut surfaces with central necrosis and intermittent fibrous bands identified. The mass grossly involves the disruption of the outer surface. No unremarkable ovarian parenchyma is identified. There is a 3.2 x 0 1.2 cm possible fallopian tube embedded within the mass. No obvious fimbriated end is grossly identified. There is a 5.5 x 5.2 cm area of disruption identified on the outer surface of the sigmoid colon that likely correlates with the disruption on the outer surface of the ovary, 4.8 cm from the distal margin and 10.7 cm from the proximal margin. The appendix is adherent to the undersurface of the sigmoid colon adjacent to the area of disruption, 5.3 cm from the distal margin and 11.3 cm from the proximal margin. The remaining outer surface of the serosa is extensively ragged with dense adhesions. The serosal disruption is sectioned reveal a 8.7 x 5.5 x 3.4 cm james-pink, heterogeneous mass with central necrosis. The mass grossly extends into the muscular layer and grossly pushes on, with no obvious ulceration of, the underlying mucosa. Additionally, the mass grossly surrounds the lumen of the appendix and is the following distances of margins: Distal sigmoid mucosa-2.5 cm, proximal sigmoid mucosa-7.7 cm, proximal appendiceal margin-2.5 cm, nearest radial margin-4.2 cm. The pericolonic fat is sectioned to reveal multiple lymph nodes, that range from 0.2 to 1.3 cm in greatest mention. Sectioning of the larger lymph nodes reveals james-pink, homogenous cut surfaces. The specimen is inked as follows: Outer surface of ovarian mass-blue, ovarian disruption-red, serosal disruption of sigmoid colon-red, radial margin-black, colonic serosa-green. [employer] Human Services sections are submitted as follows: B1: Director Human Services of ovarian mass, frozen section remnant B2: Director Human Services of ovarian mass with disruption B3-B7: Director Human Services of ovarian mass B8: Director Human Services of ovarian mass with possible fallopian tube B9: Mass with colonic serosal disruption and underlying mucosa B10: Mass with overlying colonic mucosa B11: Serosal disruption with overlying mucosa and uninvolved mucosa B12: Mass with serosal disruption and appendix B13: Distal tip and proximal margin of appendix B14: Nearest radial margin, perpendicular B15: Proximal mucosal margin, en face B16: Distal mucosal margin, en face B17: Lymph nodes, 6 B18: Lymph nodes, 6 B19: Lymph nodes, 2, bisected (1 inked blue) B20: Lymph nodes, 2, bisected (1 inked blue) B21: Lymph nodes, 2, bisected (1 inked blue) B22: Lymph node, 1, trisected B23: Lymph node, 1, bisected Frozen section diagnosis (Dr. Rosa): Poorly differentiated carcinoma with marked nuclear pleomorphism. C. Received in a container of formalin labeled [facility] colon and anastomotic rings is a right hemicolectomy specimen including a terminal ileum (2.7 cm in length and cecum and ascending colon (16.3 cm in length). The appendix is surgically absent. There is a 3.2 x 2.5 x 2.3 cm serosal nodule located within the pericolonic fat adjacent to the ascending colon, 2.3 cm from the distal margin, 13.7 cm from the proximal margin, and 0.1 cm from the nearest radial margin. The mass grossly invades through the muscular layer and pushes on, with no obvious ulceration of, the underlying mucosa. The specimen is opened to reveal a james-pink, intermittently hyperemic mucosa with typical folds. Multiple lymph nodes are identified within the fat, that range from 0.2 to 1.3 cm in greatest dimension. Received within the same container are 2 anastomotic donuts received on an anastomotic ring. The mucosal surfaces are james-pink and grossly unremarkable. Director Human Services sections are submitted as follows: C1: Proximal, distal mucosal margins, en face C2: Mass with radial margin, perpendicular C3: Mass with overlying serosa C4-C5: Mass with underlying mucosa C6: [employer] Human Services of anastomotic donuts C7: Lymph node, 6 C8: Lymph nodes, 3 C9: Lymph nodes, 2, bisected (1 inked blue) C10: Lymph nodes, 2, bisected (1 inked blue) D. Received in a container of formalin labeled [facility] periaortic lymph nodes is a 0.7 x 1.5 x 1.0 cm aggregate of fibroadipose tissue. The specimen is palpated to reveal 3 lymph nodes, that range from 0.9 to 1.7 cm in greatest dimension. Sectioning of the lymph nodes reveals james-pink, homogenous cut surfaces. The lymph nodes are submitted entirely as follows: D1: Lymph nodes, 2, bisected (1 inked blue) D2: Lymph node, 1, bisected E. Received in a container of formalin labeled [place] -right periaortic lymph nodes is a 3.5 x 2.5 x 1.5 cm aggregate of fibroadipose tissue. The specimen is palpated to reveal 3 lymph nodes, that range from 1.3 to 2.1 cm in greatest dimension. Sectioning of the lymph nodes reveals james-pink, homogenous cut surfaces. The lymph nodes are submitted entirely as follows: E1: Lymph node, 1, trisected E2: Lymph node, 1, trisected E3-E5: Lymph node, 1, serially sectioned F. Received in a container of formalin labeled [place] -right pelvic lymph nodes is a 5.5 x 4.5 x 2.3 cm aggregate of fibroadipose tissue. The specimen is palpated to reveal multiple lymph nodes, that range from 0.7 to 2.6 cm in greatest dimension. Sectioning of the larger lymph nodes reveals james-pink, homogenous cut surfaces. The lymph nodes are submitted entirely as follows: F1: Lymph nodes, 2, bisected (1 inked blue) F2-F3: Lymph node, 1, bisected F4-F5: Lymph node, 1, trisected F6-F9: Lymph node, 1, serially sectioned G. Received in a container of formalin labeled [place] -left pelvic lymph nodes is a 3.7 x 3.2 x 1.5 cm aggregate of fibroadipose tissue. The specimen is palpated to reveal multiple lymph nodes, that range from 0.7 to 0.7 cm in greatest dimension. Sectioning of the lymph nodes reveals white-james, homogenous cut surfaces. The lymph nodes are submitted entirely as follows: G1: Lymph nodes, 2, bisected G2-G3: Lymph node, 1, trisected G4-G5: Lymph node, 1, serially sectioned G6: Lymph node, 1, bisected G7-G9: Lymph node, 1, serially sectioned H. Received in formalin labeled [place] -uterus, cervix, left IP ligament is a 184 g, 7.2 x 6.3 x 5.6 cm previously opened uterus with an attached 3.7 x 0.5 x 0.2 cm cervix. Attached to the uterus is a right fimbriated fallopian tube (6.2 x 0.7 cm) and right ovary (2.3 x 1.5 x 1.4 cm). There is a 4.6 x 5.2 cm disrupted area on the anterior aspect of specimen underlying endometrial cavity. The 3.5 x 3.2 x 1.1 cm ectocervix is james-pink and smooth and surrounds a 0.7 cm slit cervical os. The endocervical canal is 3.2 x 1.2 cm and displays a typical herringbone pattern. The endometrial cavity is 6.2 x 2.8 cm. The disrupted area is sectioned to reveal a james-pink, friable centrally necrotic mass infiltrating into the myometrium in the endometrium at the anterior and posterior lower uterine segment with possible involvement of the anterior cervix. The endomyometrium is serially sectioned to reveal an average endometrial thickness of 0.2 cm and an average myometrial thickness of 1.5 cm. There are 2 james-pink, sessile polyps identified within the anterior and posterior endometrium, that measure 1.3 and 2.0 cm in greatest dimension. No obvious signs of myometrial invasion is grossly identified. Two white-james, well-circumscribed concentrically whorled intramural nodules identified, that measure 1.1 and 1.9 cm in greatest dimension. The fallopian tube is mildly edematous with a pinpoint lumen. Sectioning of the right ovary reveals unremarkable cut surfaces with no discrete masses or lesions identified. Received within the same container is a 8.5 x 6.2 x 2.7 cm portion of fibroadipose tissue. Sectioning of the fibroadipose tissue reveals the probable left IP ligament with adjacent vasculature. The cauterized edge of the detached portion of fibroadipose tissue is taken as the margin. Sectioning of the tissue reveals multiple white-james, densely fibrous bands with no discrete mass grossly identified. The specimen is inked as follows: Pericervical margin-black, serosal disruption-red, serosa-blue. Director Human Services sections are submitted as follows: H1: Serosa with disruption and peritoneal reflection H2: Right parametrial margin, en face H3: Anterior cervix with disruption H4: Mass with anterior lower uterine segment and serosal disruption H5: Posterior cervix H6: Posterior lower uterine segment H7: Mass with anterior serosal disruption and endometrium H8: Anterior endomyometrium with polyp, polyp entirely submitted H9: Mass with posterior endomyometrium, full-thickness H10-H11: Posterior endomyometrium with polyp, polyp entirely submitted H12: Director Human Services of intramural nodules H13-H14: Director Human Services of right fallopian tube and fimbriated end H15: Director Human Services of right ovary H16: Director Human Services of left IP ligament margin, en face [place] 5 11:14 AM [facility] MICROSCOPIC DESCRIPTION After review of H&E stained sections, immunohistochemical stains are ordered on block B6. The tumor cells are positive for CK AE1/AE3, CK7, PAX8, p16 (strong/diffuse) p53 (mutant overexpressed pattern), ER (30% weak nuclear staining), and WT1. The tumor cells are negative for CK20, Napsin A, CDX2, and TTF-1. 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] Post-menopausal bleeding [N95.0] R19.00-Pelvic mass N82.4-Colouterine fistula N32.1-Colovesical fistula N95.0-Avpa-zjbtgrlgog bleeding 5 11:14 AM [facility] SYNOPTIC REPORT OVARY or FALLOPIAN TUBE or PRIMARY PERITONEUM OVARY OR FALLOPIAN TUBE OR PRIMARY PERITONEUM - All Specimens 8th Edition - Protocol posted: 01/27/2024 SPECIMEN Procedure: Total hysterectomy and bilateral salpingo-oophorectomy Procedure: Right and left colectomy, appendectomy Specimen Integrity: Left Ovary Integrity: Capsule ruptured Time of Rupture: Unknown TUMOR Tumor Site: Left tubo-ovarian, right fallopian tube Tumor Size: Greatest Dimension (Centimeters): 13.2 cm Histologic Type: High-grade serous carcinoma Ovarian Surface Involvement: Not identified Fallopian Tube Surface Involvement: Cannot be determined: Left fallopian tube embedded within ovary Other Tissue / Organ Involvement: Left ovary Other Tissue / Organ Involvement: Right fallopian tube Other Tissue / Organ Involvement: Left fallopian tube Other Tissue / Organ Involvement: Uterine corpus Other Tissue / Organ Involvement: Pelvic peritoneum Other Tissue / Organ Involvement: Right and left colon, appendix Largest Extrapelvic Peritoneal Focus: Macroscopic (greater than 2 cm): Left and right colon Peritoneal / Ascitic Fluid Involvement: Not submitted / unknown REGIONAL LYMPH NODES Regional Lymph Node Status: : Tumor present in regional lymph node(s) Number of Nodes with Metastasis Greater than 10 mm: 0 Number of Nodes with Metastasis 10 mm or Less (excluding isolated tumor cells): 1 Vijay Site(s) with Tumor: Right pelvic Size of Largest Vijay Metastatic Deposit: 2 mm Location of Largest Vijay Metastatic Deposit: Right pelvic Number of Lymph Nodes Examined: 48 Vijay Site(s) Examined: Right pelvic Vijay Site(s) Examined: Left pelvic Vijay Site(s) Examined: Right para-aortic Vijay Site(s) Examined: Left para-aortic Vijay Site(s) Examined: Right and left pericolonic DISTANT METASTASIS Distant Site(s) Involved: Transmural involvement of intestine: Right and left colon pTNM CLASSIFICATION (AJCC 8th Edition) Reporting of pT, pN, and (when applicable) pM categories is based on information available to the pathologist at the time the report is issued. As per the AJCC (Chapter 1, 8th Ed.) it is the managing physician's responsibility to establish the final pathologic stage based upon all pertinent information, including but potentially not limited to this pathology report. pT Category: pT3c pN Category: pN1a pM Category: pM1b FIGO STAGE FIGO Stage: IVB 11:14 AM [facility] COMMENT The [employer] voice-activated dictation system may have been used in the creation of this report. Inherent to this system is the possibility of errors in syntax, grammar, punctuation, or other areas that could impact interpretation. If there are interpretive questions about the report, please contact the performing pathologist. Unless gross only is specified in the diagnosis, the microscopic examination substantiates the above cited diagnosis. The performance characteristics of all immunohistochemical stains cited in this report (if any) were determined by the [facility] of [facility] in compliance with CLIA'88 regulations. Some of these tests rely on the use of analyte specific reagents and are subject to specific labeling requirements by the FDA. All controls show appropriate reactivity. This testing was developed by the [facility] of [facility]. It has not been cleared or approved by the FDA. The FDA has determined that such clearance or approval is not necessary. 5 11:14 AM [facility] Tissue Collection / Unknown 01/10/2025 3:49 PM CDT 01/10/2025 3:55 PM CDT Comment:uterine tissue [id number] Tissue specimen (specimen) Collection / Unknown 01/10/2025 4:47 PM CDT 01/10/2025 5:31 PM CDT Comment:sigmoid and rectum c olon, appendix, left ovary [id number] Tissue specimen (specimen) SIGMOID COLON STRUCTURE / Unknown 01/10/2025 5:25 PM CDT 01/10/2025 5:55 PM CDT Comment:left ovary [id number] Tissue specimen (specimen) (Periaortic lymph nodes, left) 01/10/2025 6:12 PM CDT 01/11/2025 6:35 AM CDT Comment:left periaortic lymp h nodes [id number] Tissue specimen (specimen) (Periaortic lymph nodes, right) 01/10/2025 6:13 PM CDT 01/11/2025 6:35 AM CDT Comment:right periaortic lym ph nodes [id number] Tissue specimen (specimen) (Pelvic lymph nodes, right) 01/10/2025 5:51 PM CDT 01/11/2025 6:35 AM CDT Comment:right pelvic lymph n ode [id number] Tissue specimen (specimen) (Pelvic lymph nodes, left) 01/10/2025 5:57 PM CDT 01/11/2025 6:35 AM CDT Comment:left pelvic lymph no andrez [id number] Tissue specimen (specimen) (Uterus, Cervix) 01/10/2025 5:59 PM CDT 01/11/2025 6:35 AM CDT Comment:uterus, cervix, left IP ligament [id number] us Rosalind Quiñones DO PATHOLOGY/CYTOLOGY ORDERABLE S Edited Result - [id number] [address] * ND ANES INSERT ENDOTRACHEAL AIRWAY (01/10/2025 2:09 PM CDT) Narrative Jose Cam CRNA - 01/10/2025 2:09 PM CDT Jose Cam CRNA 01/10/2025 2:13 PM Airway Date/Time: 01/10/2025 2:09 PM Location: OR Plan: routine intubation Patient Identity Confirmed by: Verbally with patient and armband Staffing Performed: [employer] SALES CONSULTANT/CAA Authorized by: Jg Alexandre MD Performed by: Jose Cam CRNA Indications and Patient Condition: Indications for Airway Management: Anesthesia Sedation Level: general anesthesia Preoxygenated: yes Patient Position: Sniffing Mask Difficulty Assessment: 2 - vent by mask + OA or adjuvant +/- NMBA Oral Airway: 90mm Plan to extubate at end of case: Yes Final Airway Details: Final Airway Type: Endotracheal airway ETT Cuffed: Yes Technique Used for Successful ETT Placement: Direct laryngoscopy Devices/Methods Used in Placement: Intubating stylet Blade Type: curved blade Blade Size: 3 Insertion Site: Oral ETT Size (mm): 7.0 Measured from: Teeth Tube secured with: Tape Placement Verified by: auscultation, end tidal CO2 and chest rise Cormack-Lehane Classification: Grade I - full view of glottis Number of Attempts at Approach: 1 Additional Procedure Information: atraumatic and dentition unchanged Jg Alexandre MD PROCEDURE/MINOR SURGICAL ORDERAB LES Final Result * VERIFICATION BLOOD GROUP (01/10/2025 8:26 AM CDT) ABO GROUP O 01/10/2025 9:04 AM CDT [facility] RH (D) TYPE Positive 01/10/2025 9:04 AM CDT [facility] Blood Venipuncture / Unknown 01/10/2025 8:26 AM CDT 01/10/2025 8:26 AM CDT Rosalind Quiñones DO BLOOD BANK ORDERABLES Final Result [facility] CLIA#[id number] [address] [place] [address], [place] [phone] * TYPE AND SCREEN (01/10/2025 8:22 AM CDT) ABO GROUP O 01/10/2025 9:22 AM CDT [facility] RH (D) TYPE Positive 01/10/2025 9:22 AM CDT [facility] ANTIBODY SCREEN Negative 01/10/2025 9:22 AM CDT [facility] Blood Venipuncture / Unknown 01/10/2025 8:22 AM CDT 01/10/2025 8:26 AM CDT Sanjeev Oliveira MD BLOOD BANK ORDERABLES Edited Re sult - Final [facility] CLIA#[id number] [address] [place] [address], * ND ANES INSERT SUPRAGLOTTIC AIRWAY (01/05/2025 5:05 PM CDT) Narrative Miladys Alexandre CRNA - 01/05/2025 5:05 PM CDT Miladys Alexandre CRNA 01/05/2025 5:15 PM Airway Date/Time: 01/05/2025 5:05 PM Location: OR Plan: routine intubation Patient Identity Confirmed by: Verbally with patient and armband Airway: not difficult Staffing Performed: FARIHA/RHEA Authorized by: Jg Alexandre MD Performed by: Miladys Alexandre CRNA Indications and Patient Condition: Indications for Airway Management: Anesthesia Sedation Level: general anesthesia Preoxygenated: yes Patient Position: Sniffing Mask Difficulty Assessment: 1 - vent by mask Plan to extubate at end of case: Yes Final Airway Details: Final Airway Type: Supraglottic airway Final Supraglottic Airway: LMA Lubricant used: Yes LMA size: 4 Tube secured with: Tape Placement Verified by: auscultation, end tidal CO2 and chest rise Airway Seal Pressure (cm H2O): 20 Additional Procedure Information: atraumatic and dentition unchanged Jg Alexandre MD PROCEDURE/MINOR SURGICAL ORDERAB LES Final Result * PET TUMOR OR INFECTION IMG W CT SKB MDTH (01/05/2025 2:13 PM CDT) Anatomical Region Laterality Modality Nuclear Medicine 01/05/2025 2:14 PM CDT Impressions 01/06/2025 8:12 AM CDT IMPRESSION: 1. Abnormal hypermetabolic activity in the uterus concerning for neoplastic disease within adjacent complex cavitary collection which appears to have formed a direct fistula with the urinary bladder. 2. Complex 11 to 12 cm cystic and solid mass in the adjacent left hemipelvis is either exophytic from the uterine fundus or centered in the left ovary/adnexa, also demonstrating abnormal hypermetabolic activity and is likely malignant/neoplastic. 3. Hypermetabolic 3.2 cm soft tissue mass associated with the ascending colon which could represent a synchronous colonic neoplasm or a metastatic implant along the colonic surface. 4. Indeterminate mildly enlarged left retroperitoneal abdominal lymph nodes with mild hypermetabolic activity. 5. Small splenic lesion noted on a prior CT imaging also appears abnormally hypermetabolic, and could be benign or malignant. Close attention on follow-up recommended. 6. No evidence of FDG avid metastatic disease above the diaphragms. 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 A noncontrast CT scan was performed for attenuation correction of PET data and for anatomic localization. No contrast was administered. Imaging was performed from the skull base to mid thigh levels with subsequent reconstruction of full trunk, orthogonal view slices in transverse, sagittal, and coronal projections which were reviewed along with dynamic multiimage planar and non attenuation corrected sagittal views. Blood glucose at the time of tracer injection was 97 mg/dl with normal biodistribution of tracer. The quality of this examination is acceptable with regards to count density, processed images, data display and lack of important artifacts (including but not limited to motion and attenuation artifacts). COMPARISON: CT performed 12/11/2024 FINDINGS: Head/Neck: No suspicious FDG uptake. Thorax: No suspicious FDG uptake. Pulmonary micronodules described on prior chest CT imaging remain too small to characterize by this imaging modality. Abdomen/Pelvis: Large necrotic/cavitary 7 to 8 cm collection just above the urinary bladder with an apparent fistula and communication to the urinary bladder with excreted radiopharmaceutical extending into the collection. There is associated heterogeneous uptake in the ill-defined and poorly visualized uterus with an SUV max of 16.2. Large 11 to 12 cm complex cystic and solid adjacent left pelvic mass, probably arising from the left ovary/adnexa or exophytic from the left uterine fundus also demonstrates abnormal heterogeneous metabolic activity peripherally with SUV max of 11.4. Mildly enlarged 20 x 14 mm left para-aortic lymph node just below the renal vessels demonstrates mild FDG uptake and SUV max of 4.8; this remains indeterminate for a vijay metastatic lesion. Previously described splenic lesion is difficult to visualize by noncontrast technique however also demonstrates abnormal metabolic activity with SUV max of 6.2. Lobulated approximately 3.2 x 2.6 cm soft tissue mass along the medial margin of the ascending colon in the right upper quadrant (image 170) with SUV max 7.7. Musculoskeletal: No suspicious FDG uptake. 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 A noncontrast CT scan was performed for attenuation correction of PET data and for anatomic localization. No contrast was administered. Imaging was performed from the skull base to mid thigh levels with subsequent reconstruction of full trunk, orthogonal view slices in transverse, sagittal, and coronal projections which were reviewed along with dynamic multiimage planar and non attenuation corrected sagittal views. Blood glucose at the time of tracer injection was 97 mg/dl with normal biodistribution of tracer. The quality of this examination is acceptable with regards to count density, processed images, data display and lack of important artifacts (including but not limited to motion and attenuation artifacts). COMPARISON: CT performed 12/11/2024 FINDINGS: Head/Neck: No suspicious FDG uptake. Thorax: No suspicious FDG uptake. Pulmonary micronodules described on prior chest CT imaging remain too small to characterize by this imaging modality. Abdomen/Pelvis: Large necrotic/cavitary 7 to 8 cm collection just above the urinary bladder with an apparent fistula and communication to the urinary bladder with excreted radiopharmaceutical extending into the collection. There is associated heterogeneous uptake in the ill-defined and poorly visualized uterus with an SUV max of 16.2. Large 11 to 12 cm complex cystic and solid adjacent left pelvic mass, probably arising from the left ovary/adnexa or exophytic from the left uterine fundus also demonstrates abnormal heterogeneous metabolic activity peripherally with SUV max of 11.4. Mildly enlarged 20 x 14 mm left para-aortic lymph node just below the renal vessels demonstrates mild FDG uptake and SUV max of 4.8; this remains indeterminate for a vijay metastatic lesion. Previously described splenic lesion is difficult to visualize by noncontrast technique however also demonstrates abnormal metabolic activity with SUV max of 6.2. Lobulated approximately 3.2 x 2.6 cm soft tissue mass along the medial margin of the ascending colon in the right upper quadrant (image 170) with SUV max 7.7. Musculoskeletal: No suspicious FDG uptake. IMPRESSION: 1. Abnormal hypermetabolic activity in the uterus concerning for neoplastic disease within adjacent complex cavitary collection which appears to have formed a direct fistula with the urinary bladder. 2. Complex 11 to 12 cm cystic and solid mass in the adjacent left hemipelvis is either exophytic from the uterine fundus or centered in the left ovary/adnexa, also demonstrating abnormal hypermetabolic activity and is likely malignant/neoplastic. 3. Hypermetabolic 3.2 cm soft tissue mass associated with the ascending colon which could represent a synchronous colonic neoplasm or a metastatic implant along the colonic surface. 4. Indeterminate mildly enlarged left retroperitoneal abdominal lymph nodes with mild hypermetabolic activity. 5. Small splenic lesion noted on a prior CT imaging also appears abnormally hypermetabolic, and could be benign or malignant. Close attention on follow-up recommended. 6. No evidence of FDG avid metastatic disease above the diaphragms. us Domonique Moore ENDOSCOPY SPECIALTY TECHNICIAN PE ORDERABLES Final Result * (ABNORMAL) CERV/VAG CYTO SCREEN PAP W/HPV (01/04/2025 11:59 AM CDT) CLINICAL INFORMATION [facility] Comment:Routine exam LAST MENSTRUAL PERIOD [facility]:NONE GIVEN PREV PAP: [facility] Comment:NONE GIVEN PREV BX: [facility] [employer] [place] Comment:NONE GIVEN SOURCE [facility] Comment:ENDOCERVIX ADEQUACY: [facility] Comment: Satisfactory for evaluation. Endocervical/transformation zone component present. Partially obscuring inflammation Age and/or menstrual status not provided GENERAL CATEGORIZATION: (A) [facility] Comment:Cytology Results: Ep ithelial Cell Abnormality PAP INTERP (A) [facility] Comment: Atypical Squamous Cells of Undetermined Significance (ASC-US) COMMENT (PAP TEST) Q [facility]est [facility] Comment: This Pap test has been evaluated with computer assisted technology. Suggest clinical correlation and follow-up as clinically appropriate STRETCHING PRESS OPERATOR: [facility] Comment: TLS, CT(ASCP) CT Screening Location: [place] [address] PATHOLOGIST [facility] Comment: Brent Baca M.D., Board Certified in Anatomic Pathology and Cytopathology. (electronic signature) Pathologist Release Date/Time: 01/09/2025 09:10AM EXPLANATORY NOTE Que [facility] Comment: EXPLANATORY NOTE: The Pap is a screening test for cervical cancer. It is not a diagnostic test and is subject to false negative and false positive results. It is most reliable when a satisfactory sample, regularly obtained, is submitted with relevant clinical findings and history, and when the Pap result is evaluated along with historic and current clinical information. HPV E6/E7 Detected( A) Not Detected [facility] Comment: Methodology: Mediator-Mediated Amplification This assay detects E6/E7 viral messenger RNA (mRNA) from 14 high-risk HPV types (16,18,31,33,35,39,45,51,52,56,58,59,66,68). Cervical sources are required for HPV testing. If a vaginal source from a patient who has had a total hysterectomy with removal of cervix was submitted, please contact the testing laboratory for alternative testing options. For additional information, please refer to [email or web address]/faq/SYP570x7 (This link if provided for information/ educational purposes only.) Test Performed at: [address] [address] Dion SEVERINO Genital SWAB OF ENDOCERVIX / Unknown 01/04/2025 11:59 AM CDT 01/05/2025 7:54 PM CDT Rosalind Quiñones DO PATHOLOGY/CYTOLOGY ORDERABLE S Final Result Performing Organization Address City/State/[facility] Co de Phone Number [facility] [phone] [address] from Last 3 Months Insurance RX [employer] Member Subscriber Plan / Payer (Ef fective for All Dates) Name:Tayler Reveles Relation to Subscriber:Self Name:Tayler Reveles Payer ID:Not on file Group ID:[id number] Type:RX Commercial Address: [address] [employer] PL[employer] (INTERNAL) [facility] Internal Plans Advance Directives For more information, please contact: [phone] Documents on File Type Date Recorded Patient Director Human Services Expl anation Advance Directive POA 02/20/2025 11:20 AM Advance Directive POA * Full Code (Latest Code Status on File) Date Activated Date Inactivated Comments 02/13/2025 5:42 PM 02/18/2025 5:05 PM * Full Code Date Activated Date Inactivated Comments 01/19/2025 5:38 PM 01/31/2025 8:08 PM * Full Code Date Activated Date Inactivated Comments 01/10/2025 9:25 PM 01/19/2025 5:26 PM * Full Code Date Activated Date Inactivated Comments 01/10/2025 7:04 AM 01/10/2025 9:25 PM * Full Code Date Activated Date Inactivated Comments 01/05/2025 6:23 PM 01/06/2025 4:21 PM Care Teams Linux Architect Relationship Specialty Start Date End Date Wagner Luis MD [address] [phone] PCP - General Family Practice 06/19/23
--- OUTSIDE RECORDS SUMMARY | 2025-04-01 11:55 | XMS_ITS | Encounter Summary ---
Author Organization [facility] Address [address] [place] [address] Care Team Providers Care Board Attendant Name Role Phone Lottie Cardenas MD Primary Care Provider [phone] Encounter Details Date Type Department Care Team (Latest Contact Info) Description 12/20/1999 Outpatient Historical [facility] [address] [place] [address] Fernando White, DO [address] [place] [address] Acute bronchitis (Primary Dx) Social History Tobacco Use Types Packs/Day Years Used Date Smoking Tobacco: Never Assessed Comments Unknown Sex and Gender Information Value Date Recorded Sex Assigned at Not on file Legal Sex Female 5:19 AM TIE MAN Gender Identity Not on file Sexual Orientation Not on file documented as of this encounter Plan of Treatment Not on file documented as of this encounter Visit Diagnoses Diagnosis Acute bronchitis- Primary documented in this encounter Care Teams Board Attendant Relationship Specialty Start Date End Date Lottie Cardenas MD [address] [facility] [address] [place] [address] PCP - General Family Practice 09/15/16 documented as of this encounter
--- OUTSIDE RECORDS SUMMARY | 2025-04-01 11:55 | XMS_ITS | Clinical Summary ---
Author Organization [facility] Address [address] [facility] [address] [place] [address] Phone Care Team Providers Care Mathematics Technician Name Role Phone Lottie Cardenas MD Primary Care Provider [phone] Allergies Active Allergy Reactions Criticality Noted Date Comments Acetaminophen Itching Low 09/04/2013 Medications albuterol HFA 90 mcg inhalerIndication s:Mild persistent asthma without complication Take 2 Puffs by inhalation every 6 hours as needed for Shortness of Breath. 6.7 Gram 2 7 Active albuterol HFA 90 mcg inhaler Take 2 Puffs by inhalation every 4 hours as needed for Shortness of Breath or Wheezing. 8.5 Gram 8 Active budesonide-formot norris (SYMBICORT) 160-4.5 mcg/actuation HFA Aerosol Inhaler Take 2 Puffs by inhalation 2 times daily. 6 Gram 8 Active Active Problems Problem Noted Date Diagnosed Date Tobacco use 09/15/2016 Family History Medical History Relation Name Comments Breast Cancer Mother Cancer Mother breast Hypertension Mother Hypertension Sister 1 Hypertension Sister 2 Colon Cancer Neg Hx Relation Name Status Comments Mother Sister 1 Sister 2 Social History Tobacco Use Types Packs/Day Years Used Date Smoking Tobacco: Every Day Cigarettes 1 2 Smokeless Tobacco: Never Tobacco Cessation:Ready to Q uit: No; Counseling Given: Yes Alcohol Use Standard Drinks/Week Comments No 0 (1 standard drink = 0.6 oz pur e alcohol) Comments No Sex and Gender Information Value Date Recorded Sex Assigned at Not on file Legal Sex Female 5:19 AM AIRCRAFT LOAD CONTROLLER Gender Identity Not on file Sexual Orientation Not on file Last Filed Vital Signs Vital Sign Reading Time Taken Comments Blood Pressure 125/63 07/21/2018 11:06 AM AIRCRAFT LOAD CONTROLLER Pulse 100 09/17/2016 12:07 PM AIRCRAFT LOAD CONTROLLER Temperature 36.4 C (97.5 F) 07/21/2018 11:06 AM AIRCRAFT LOAD CONTROLLER Respiratory Rate 20 07/21/2018 11:0 6 AM AIRCRAFT LOAD CONTROLLER Oxygen Saturation 96% 07/21/2018 11: 06 AM AIRCRAFT LOAD CONTROLLER Inhaled Oxygen Concentration - - Weight 115.8 kg (255 lb 3.2 oz) 07/21/2018 9:37 AM AIRCRAFT LOAD CONTROLLER Height 154.9 cm (5' 1 ) 09/17/2016 12:0 7 PM AIRCRAFT LOAD CONTROLLER Body Mass Index 48.22 09/17/2016 12:07 PM AIRCRAFT LOAD CONTROLLER Plan of Treatment Health Maintenance Due Date Last Done Comments Pre-Diabetes and Diabetes Screening 1960 DTAP/TDAP/TD VACCINES (1 - Tdap) 1981 BREAST CANCER SCREENING 2002 FIT-DNA Q 3 years 12/31/2007 FIT/FOBT Q 1 year 12/31/2007 Flex Sig/CT Colonography Q 5 years 12/31/2007 ZOSTER VACCINE (1 of 2) 2012 RSV VACCINE (60+ or ) (1 - Risk 60-74 years 1-dose series) 2022 INFLUENZA VACCINE (#1) 2025 COLORECTAL SCREENING 01/05/2035 01/05/2025, 01/05/2025, 01/05/2025 Colorectal Cancer Screening 01/05/2035 Insurance Care Teams Mathematics Technician Relationship Specialty Start Date End Date Lottie Cardenas MD [address] [phone] PCP - General Family Practice 09/15/16
--- OUTSIDE RECORDS SUMMARY | 2025-04-01 11:55 | XMS_ITS ---
Author Organization [facility] Address [address] [facility] Attn: Epic Prelude ADT [place] [address] Care Team Providers Care Rate Supervisor Name Role Phone Wagner Luis MD Primary Care Provider [phone] Active Problems Problem Noted Date Diagnosed Date [...] CA-125 01/10/2025 S/P LAINE (total abdominal hysterectomy) S/P bladder repair 01/10/2025 Colovesical fistula 01/05/2025 [...] index of 40.0-49.9 12/13/2024 Tobacco use 09/15/2016 Current Treatment and Therapy Plans OP ONC OVARIAN_PACLITAXEL_CARBOPLATIN_EVERY 21 DAYS* Plan Start Date:01/15/2025 Plan Provider:Tatiana Quiñones DO Linked Problems Malignant neoplasm of both o varies (CMS/HCC) Treatment Medications Current Day (Day 1 , Standing Labs, Prescriptions and Pre-Treatment Orders - Planned for 01/15/2025) Next Day (Day 1, Cycle 1 - Planned for 01/16/2025) CARBOplatin (PARAPLATIN) IVPBPACLitaxel (TAXOL) IVPB No medications scheduled. CARBOplatin (PARAPLATIN) in dextrose 5 % 250 mL IVPBPACLitaxel (TAXOL) 360 mg in sodium chloride 0.9 % (PVC free) 500 mL IVPB Past Treatment and Therapy Plans No past plan information found. Lifetime Dose Tracking * Chemical Lifetime Dose Automatic Entry Manual Entr y Effective Dose 272.17 mSv 272.17 mSv 0 mSv Total DLP 5,586.99 DLP 5,586.99 DLP 0 DLP CTDIvol Max 121.33 mGy 121.33 mGy 0 mGy CTDIvol Min 56.89 mGy 56.89 mGy 0 mGy
[2025-04-01 12:02] VITALS: BMI 35.2
--- NOTE | 2025-04-01 12:10 | PM.HP ---
Providers/Chief Complaint Admitting Physician: Peter Sanders MD Chief Complaint: Pre Surgery History of Present Illness Tayler Reveles is a 64 year old female with a history of ovarian cancer and PE admitted for heparin drip as a bridge prior to Port-A-Cath placement on Thursday. Cardiology had recommended admission for bridging prior to procedure. Medications/Allergies Home Medications ?Medication ?Instructions ?Recorded ?Confirmed ?Last Taken ?Type albuterol sulfate 90 mcg/actuation 2 puff inhalation Q6H PRN sob 02/06/25 03/22/25 Unknown History aerosol inhaler apixaban 5 mg tablet (Eliquis) 5 mg PO BID 03/07/25 03/22/25 03/09/25 History dexamethasone 4 mg tablet 20 mg PO DIRECTED 03/09/25 03/22/25 Unknown History fluticasone furoate 100 1 inh inhalation DAILY 03/09/25 03/22/25 Unknown History mcg-vilanterol 25 mcg/dose inhalation powder (Breo Ellipta) meclizine 25 mg tablet 25 mg PO TID PRN Dizziness 03/09/25 03/22/25 Unknown History umeclidinium 62.5 mcg/actuation 1 inh inhalation DAILY 03/09/25 03/22/25 Unknown History blister powder for inhalation (Incruse Ellipta) Allergies Allergy/AdvReac Type Severity Reaction Status Date / Time acetaminophen (From Tylenol Allergy Unknown Verified 03/22/25 13:36 Severe Allergy) diphenhydramine (From Allergy Unknown Verified 03/22/25 13:36 Tylenol Severe Allergy) Fish Containing Products Allergy ALGY-Rash Verified 03/22/25 13:37 PFSH Acute PFSH: Family History (Updated 03/22/25 @ 13:42 by Dawna Garcia LPN) Father Cancer CAD (coronary artery disease) Mother Cancer Hypertension Denies family history of Diabetes Social History (Updated 03/22/25 @ 13:42 by Dawna Garcia LPN) Smoking and tobacco/nicotine status: former use of tobacco/nicotine Quit status (tobacco/nicotine): has quit using Year quit tobacco: 2024 Former quit date comment: 5 months ago Alcohol intake: never Substance/Drug Use: never Physical Exam Narrative: Chest: Unlabored breathing room air. Heart: Regular rate and rhythm. Abdomen: Soft, nontender, nondistended. A&P Assessment and plan 1. Ovarian cancer: 2. Pulmonary embolism: Plan: 64-year-old female who presented for bridging with heparin drip prior to Port-A-Cath placement on Thursday. Dr. Sanders had arranged for her to be admitted. Consulting hospitalist for heparin drip bridging and medical management. Portal be placed on Thursday. PDMP PDMP Reviewed: Not Reviewed Attestations Medical Necessity Statement*: Bridging to relation with heparin drip prior to Port-A-Cath placement Coding Level of Care Code 34353 Diagnoses Ovarian cancer C56.9 Pulmonary embolism I26.99
[2025-04-01 12:36] VITALS: BP 134/82; PULSE 67; RESP 18; TEMP 36.7; O2SAT 96
[2025-04-01 15:20] VITALS: BP 119/78; PULSE 73; RESP 17; TEMP 36.8; O2SAT 99
[2025-04-01 15:24] LABS: Platelet Count 292 10^3/cmm (157-399)
[2025-04-01] MEDS: heparin drip 25,000 UNIT/500 ML PREMIX 25 UNIT IV (15:49)
--- NOTE | 2025-04-01 16:12 | PM.CONSULT ---
Providers/Reason For Consult Consulting Physician/Specialty*: Jessenia Gibson Reason for Consult*: heparin infusion management for bridging for PE for surgery Attending Physician: Peter Sanders MD History of Present Illness History of Present Illness Tayler Reveles is a 64 year old female with a history of ovarian cancer and PE admitted for heparin drip as a bridge prior to Port-A-Cath placement on Thursday. Cardiology had recommended admission for bridging prior to procedure. internal medicine called for heparin infusion and management for the bridging purpose currently asymptomatic and stable The patient has recent surgery hysterectomy and the wound is not closed she is on continuous dressing changes since month. However no fever nausea vomiting chest pain or any other symptoms Review of systems unremarkable Review of Systems General: Reports: 10 or more systems reviewed and unremarkable except in HPI and below Medications/Allergies Home Medications ?Medication ?Instructions ?Recorded ?Confirmed ?Last Taken ?Type albuterol sulfate 90 mcg/actuation 2 puff inhalation Q6H PRN sob 02/06/25 03/22/25 Unknown History aerosol inhaler apixaban 5 mg tablet (Eliquis) 5 mg PO BID 03/07/25 03/22/25 03/09/25 History dexamethasone 4 mg tablet 20 mg PO DIRECTED 03/09/25 03/22/25 Unknown History fluticasone furoate 100 1 inh inhalation DAILY 03/09/25 03/22/25 Unknown History mcg-vilanterol 25 mcg/dose inhalation powder (Breo Ellipta) meclizine 25 mg tablet 25 mg PO TID PRN Dizziness 03/09/25 03/22/25 Unknown History umeclidinium 62.5 mcg/actuation 1 inh inhalation DAILY 03/09/25 03/22/25 Unknown History blister powder for inhalation (Incruse Ellipta) Allergies Allergy/AdvReac Type Severity Reaction Status Date / Time acetaminophen (From Tylenol Allergy Unknown Verified 03/22/25 13:36 Severe Allergy) diphenhydramine (From Allergy Unknown Verified 03/22/25 13:36 Tylenol Severe Allergy) Fish Containing Products Allergy ALGY-Rash Verified 03/22/25 13:37 Current Medications Generic Name Dose Route Start Last Admin Trade Name Freq PRN Reason Stop Dose Admin Heparin Sodium/Sodium Chloride 25,000 unit in 500 mls @ 0 mls/hr 04/01/25 15:30 04/01/25 15:49 Heparin Drip IV 14.34 unit/kg/hr CONT RED 25 mls/hr Protocol Administration Per Protocol PFSH Acute PFSH: Medical History (Updated 04/01/25 @ 16:16 by Jessenia Gibson MD) Asthma Family History (Updated 03/22/25 @ 13:42 by Dawna Garcia LPN) Father Cancer CAD (coronary artery disease) Mother Cancer Hypertension Denies family history of Diabetes Social History (Updated 03/22/25 @ 13:42 by Dawna Garcia LPN) Smoking and tobacco/nicotine status: former use of tobacco/nicotine Quit status (tobacco/nicotine): has quit using Year quit tobacco: 2024 Former quit date comment: 5 months ago Alcohol intake: never Substance/Drug Use: never Vitals/I&O/Wt Last Vital Signs Temp 98.2 F 04/01/25 15:20 Pulse 73 04/01/25 15:20 Resp 17 04/01/25 15:20 BP 119/78 04/01/25 15:20 Pulse Ox 99 04/01/25 15:20 O2 Del Method Room Air 04/01/25 15:20 04/01/25 04/01/25 04/01/25 06:59 14:59 22:59 Output Total 400 / 400 Balance -400 / -400 Weight last 48 hrs Weight 87.18 kg Physical Exam Narrative: General: Alert oriented x3, HEENT: Normocephalic, atraumatic, EOMI, Cardio: Regular rate rhythm, normal S1-S2, no murmurs rubs gallops, JVD normal Respiratory: Good bilateral air entry, no wheezes no rhonchi appreciated GI: Abdomen soft, nontender, nondistended, normoactive bowel sounds present all 4 quadrants, having abdominal wound covered with dressing that is being changed by the patient. No tenderness or discharge noticed Neuro: Cranial nerves II to XII intact, strength 5/5, sensation 5/5, no gross neurological deficit Behavior: Appropriate and cooperative Extremities: Pulses 2+, no edema, no cyanosis Skin: Visible skin intact, no rashes Data 04/01/25 14:58 A&P Assessment and plan 1. Anticoagulation management encounter: 2. Pulmonary embolism: Plan: - patient has been on apixaban for PE, currently scheduled for port insertion on thursday, to start heparin infusion without bolus dose as per wt based protocol, monitor aptt q6hrly - pharmacist also consulted for appropriate orders - FU with the heparin protocol for the desired protocol range - to hold heparin 2 hours before surgery and then to proceed, resume AC post surgery if no contraindicated - Consider wound care and surgery review of the abdominal wound and further management accordingly PDMP PDMP Reviewed: Not Reviewed Consult Attestations Medical Necessity Statement: the patient will stay in the hospital as per discretion of the primary team Time Spent in Patient Care: 16 - 35 minutes (>than 50% of time spent in counselling and/or direct pt care on unit). 20 min Other Attestations: Other Attestations: Patient condition has been discussed at length with the patient/family, I have independently reviewed the chart labs imaging and diagnostics and EKG. the goals of care and code status with the patient/family/NOK/legal technology sales representative, and documented accordingly. The patient/family has been informed about the current condition and further plan of care. Agreed with the plan of care and understood without any language barrier. This documentation was created by [employer] retail business development manager software. Every effort was made to ensure accuracy of retail business development manager. Any obvious errors or omissions should be clarified with the author of the document. Coding Level of Care Code Acute Code for Chg Fwd Diagnoses Anticoagulation management encounter Z51.81; Z79.01 Pulmonary embolism I26.99
[2025-04-01 16:23] LABS: Partial Thromboplastin Time 24.2 SECONDS (23.9-36.7)
[2025-04-01 17:41] VITALS: PULSE 80
[2025-04-01 20:00] VITALS: BP 130/76; PULSE 60; RESP 18; TEMP 36.6; O2SAT 95
[2025-04-01 22:00] VITALS: PULSE 77
--- NOTE | 2025-04-01 23:03 | ECG_ITS ---
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 Measurements Intervals [place] Rate: 76 P: 4 UT: 160 QRS: 12 QRSD: 84 T: 12 QT: 403 QTc: 455 Interpretive Statements SINUS RHYTHM WITH OCCASIONAL SUPRAVENTRICULAR PREMATURE COMPLEXES LOW QRS VOLTAGE IN PRECORDIAL LEADS [QRS DEFLECTION < 1.0 mV IN CHEST LEADS] Compared to ECG 03/22/2025 13:45:54 Low QRS voltage now present Sinus arrhythmia no longer present Electronically Signed On 04-02-2025 18:50:03 CDT by Daniela Celestin M.D. [email or web address] [id number]
[2025-04-01 23:41] LABS: Partial Thromboplastin Time 45.8 SECONDS (23.9-36.7)
[2025-04-02] VITALS (8 sets, daily range): BP systolic 96–135; BP diastolic 64–93; PULSE 73–86; RESP 15–17; TEMP 36.7–37.1; O2SAT 95–98
[2025-04-02 00:03] LABS: Hematocrit 36.8 % (36-47); Hemoglobin 11.20 g/dL (11.27-16.99); Mean Corpuscular HGB Conc 30.4 g/dL (30-55); Mean Corpuscular Hemoglobin 27.8 pg (27-33); Mean Corpuscular Volume 91.3 fl (85-98); Nucleated Red Blood Cells % 0 %; Platelet Count 313 10^3/cmm (157-399); Red Blood Count 4.03 10^6/uL (3.85-5.65); White Blood Count 9.22 10^3/uL (3.29-11.43)
[2025-04-02 00:12] LABS: Troponin(5th) Baseline 8 ng/L (0-10)
[2025-04-02 00:15] LABS: Alanine Aminotransferase 20 U/L (0-33); Albumin Level 3.0 g/dL (3.5-5.2); Alkaline Phosphatase 116 U/L (35-105); Anion Gap 15.8 (5-19); Aspartate Amino Transferase 18 U/L (0-32); Blood Urea Nitrogen 10 mg/dL (8-23); Calcium 8.5 mg/dL (8.5-10.5); Carbon Dioxide 23 mmol/L (22-29); Chloride 105 mmol/L (98-107); Creatinine Clr Calc Pharmacy 99.6526; Globulin 3.0 g/dL (1.3-4.6); Glucose 108 mg/dL (65-115); Magnesium 1.3 mg/dL (1.7-2.3); Osmolality Calculated 290 mOsm/kg (285-295); Potassium 3.8 mmol/L (3.5-5.1); Sodium 140 mmol/L (136-145); Total Protein 6.0 g/dL (6.6-8.7)
--- NOTE | 2025-04-02 01:45 | ECG_ITS ---
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 Measurements Intervals [place] Rate: 71 P: 40 TX: 162 QRS: 5 QRSD: 88 T: 10 QT: 397 QTc: 432 Interpretive Statements SINUS RHYTHM WITH OCCASIONAL SUPRAVENTRICULAR PREMATURE COMPLEXES LOW QRS VOLTAGE IN PRECORDIAL LEADS [QRS DEFLECTION < 1.0 mV IN CHEST LEADS] Compared to ECG 04/02/2025 00:04:28 No significant changes Electronically Signed On 04-02-2025 19:02:14 CDT by Daniela Celestin M.D. [email or web address] [id number]
[2025-04-02 02:12] LABS: Troponin 5 2HR 8.29 ng/L (0-10); Troponin 5 2HR Delta 0.29 ABS# (0-10)
--- NOTE | 2025-04-02 05:03 | ECG_ITS ---
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 Measurements Intervals [place] Rate: 77 P: -11 SD: 148 QRS: 5 QRSD: 86 T: 13 QT: 393 QTc: 446 Interpretive Statements SINUS RHYTHM WITH OCCASIONAL SUPRAVENTRICULAR PREMATURE COMPLEXES LOW QRS VOLTAGE IN PRECORDIAL LEADS [QRS DEFLECTION < 1.0 mV IN CHEST LEADS] Compared to ECG 04/02/2025 01:45:41 No significant changes Electronically Signed On 04-02-2025 19:02:09 CDT by Daniela Celestin M.D. [id number]
[2025-04-02 05:37] LABS: Partial Thromboplastin Time 65.4 SECONDS (23.9-36.7)
[2025-04-02 05:44] LABS: Troponin 5 6HR 7.96 ng/L (0-10)
[2025-04-02 05:48] LABS: Troponin 5 6HR Delta -0.04 ng/L (0-12)
--- NOTE | 2025-04-02 08:52 | P.PN_ITS ---
Subjective 2 Subjective: No acute events overnight Vitals/I&O/Wt Last Vital Signs Temp 98.6 F 04/02/25 07:41 Pulse 83 04/02/25 07:41 Resp 16 04/02/25 07:41 BP 127/86 04/02/25 07:41 Pulse Ox 96 04/02/25 07:41 O2 Del Method Room Air 04/02/25 07:41 04/01/25 04/02/25 04/02/25 22:59 06:59 14:59 Intake Total 240 / 240 442.917 / 682.917 197.55 / 197.55 Balance 240 / -160 442.917 / 282.917 197.55 / 197.55 Weight last 48 hrs Weight 192 lb Weight 192 lb 3.2 oz Physical Exam 2 Narrative: Chest: Unlabored breathing room air. No lymphadenopathy. Heart: Regular rate and rhythm. Abdomen: Soft, nontender, nondistended. Wet-to-dry to midline wound Data 04/03/25 01:02 04/03/25 01:02 A&P Assessment and plan 1. Ovarian cancer: 2. Anticoagulation management encounter: Plan: 64-year-old female with ovarian cancer being bridged with heparin due to pulmonary embolism. OR 04/03/2025 for port placement. PDMP PDMP Reviewed: Not Reviewed Attestations 2 Medical Necessity Statement*: Anticoagulation for pulmonary embolism Coding Level of Care Code 24386 Diagnoses Ovarian cancer C56.9 Anticoagulation management encounter Z51.81; Z79.01
[2025-04-02] MEDS: heparin drip 25,000 UNIT/500 ML PREMIX 27 UNIT IV (10:40)
[2025-04-02 11:41] LABS: Partial Thromboplastin Time 78.3 SECONDS (23.9-36.7)
--- NOTE | 2025-04-02 15:47 | PM.PN ---
Subjective Subjective: the patient was seen in the morning and no heparin infusion drip aptt in the target range no bleeding episodes and doing well having abd wound that need wound care and surgery review Vitals/I&O/Wt Last Vital Signs Temp 98.3 F 04/02/25 12:00 Pulse 86 04/02/25 15:05 Resp 16 04/02/25 12:00 BP 129/89 04/02/25 12:00 Pulse Ox 95 04/02/25 12:00 O2 Del Method Room Air 04/02/25 12:00 04/02/25 04/02/25 04/02/25 06:59 14:59 22:59 Intake Total 442.917 / 682.917 682.65 / 682.65 Balance 442.917 / 282.917 682.65 / 682.65 Weight last 48 hrs Weight 87.09 kg Weight 87.18 kg Physical Exam Narrative: General: Alert oriented x3, HEENT: Normocephalic, atraumatic, EOMI, Cardio: Regular rate rhythm, normal S1-S2, no murmurs rubs gallops, JVD normal Respiratory: Good bilateral air entry, no wheezes no rhonchi appreciated GI: Abdomen soft, nontender, nondistended, normoactive bowel sounds present all 4 quadrants, having abdominal wound covered with dressing that is being changed by the patient. No tenderness or discharge noticed Neuro: Cranial nerves II to XII intact, strength 5/5, sensation 5/5, no gross neurological deficit Behavior: Appropriate and cooperative Extremities: Pulses 2+, no edema, no cyanosis Skin: Visible skin intact, no rashes Data 04/01/25 14:58 04/01/25 23:17 A&P Assessment and plan 1. Anticoagulation management encounter: 2. Pulmonary embolism: Plan: - patient has been on apixaban for PE, currently scheduled for port insertion on thursday, on heparin infusion without bolus dose as per wt based protocol, monitor aptt q6hrly - continue heparin infsion with aptt target range - to hold heparin 2 hours before surgery and then to proceed, resume AC post surgery if no contraindicated - Consider wound care and surgery review of the abdominal wound and further management accordingly PDMP PDMP Reviewed: Not Reviewed Attestations Medical Necessity Statement*: [facility] as per discret ion of the primary team Time Spent in Patient Care: 16 - 35 minutes (>than 50% of time spent in counselling and/or direct pt care on unit). Other Attestations: Patient condition has been discussed at length with the patient/family, I have independently reviewed the chart labs imaging and diagnostics and EKG. the goals of care and code status with the patient/family/NOK/legal sales representative printing paper, and documented accordingly. The patient/family has been informed about the current condition and further plan of care. Agreed with the plan of care and understood without any language barrier. This documentation was created by [employer] vp global marketing solutions software. Every effort was made to ensure accuracy of vp global marketing solutions. Any obvious errors or omissions should be clarified with the author of the document. Coding Level of Care Code Acute Code for Chg Fwd Diagnoses Anticoagulation management encounter Z51.81; Z79.01 Pulmonary embolism I26.99
[2025-04-02 18:52] LABS: Partial Thromboplastin Time 66.7 SECONDS (23.9-36.7)
--- NOTE | 2025-04-02 19:28 | PC.NURSE ---
Tommy Sent a message to to see what time he wanted us to stop patients heparin drip for the procedure tomorrow. Dr Tinajero asked that we refer to DR Sanders tomorrow. Nurse hasnt heard as of this time. I will pass on the message to nightshift nurse and charge nurse.
[2025-04-03] VITALS (18 sets, daily range): BP systolic 111–150; BP diastolic 56–97; PULSE 65–83; RESP 10–18; TEMP 36.1–36.7; O2SAT 91–97
[2025-04-03 01:15] LABS: Hematocrit 37.2 % (36-47); Hemoglobin 11.20 g/dL (11.27-16.99); Mean Corpuscular HGB Conc 30.1 g/dL (30-55); Mean Corpuscular Hemoglobin 28.1 pg (27-33); Mean Corpuscular Volume 93.5 fl (85-98); Nucleated Red Blood Cells % 0 %; Platelet Count 222 10^3/cmm (157-399); Red Blood Count 3.98 10^6/uL (3.85-5.65); White Blood Count 9.07 10^3/uL (3.29-11.43)
[2025-04-03 01:25] LABS: Partial Thromboplastin Time 62.1 SECONDS (23.9-36.7)
[2025-04-03 01:36] LABS: Alanine Aminotransferase 18 U/L (0-33); Albumin Level 2.8 g/dL (3.5-5.2); Alkaline Phosphatase 112 U/L (35-105); Anion Gap 15.9 (5-19); Aspartate Amino Transferase 13 U/L (0-32); Blood Urea Nitrogen 9 mg/dL (8-23); Calcium 8.4 mg/dL (8.5-10.5); Carbon Dioxide 22 mmol/L (22-29); Chloride 103 mmol/L (98-107); Creatinine Clr Calc Pharmacy 85.3691; Globulin 3.2 g/dL (1.3-4.6); Glucose 106 mg/dL (65-115); Osmolality Calculated 283 mOsm/kg (285-295); Potassium 3.9 mmol/L (3.5-5.1); Sodium 137 mmol/L (136-145); Total Protein 6.0 g/dL (6.6-8.7)
--- NOTE | 2025-04-03 06:29 | PC.NURSE ---
Heparin gtt paused per order. Cosigned by charge rn.
--- NOTE | 2025-04-03 06:42 | W.PM.OPSFHP ---
Same Day Surgery H&P Indication for Procedure/HPI DATE OF PROCEDURE: April 03, 2025 CHIEF COMPLAINT/INDICATIONFOR SURGICAL PROCEDURE: ovarian cancer PREOP DIAGNOSIS: ovarian cancer PLANNED PROCEDURE: port-a-cath placement Medications/Allergies* Home Medications ?Medication ?Instructions ?Recorded ?Confirmed ?Type albuterol sulfate 90 mcg/actuation 2 puff inhalation Q6H PRN sob 02/06/25 04/02/25 History aerosol inhaler apixaban 5 mg tablet (Eliquis) 5 mg PO BID 03/07/25 04/02/25 History fluticasone furoate 100 1 inh inhalation DAILY 03/09/25 04/02/25 History mcg-vilanterol 25 mcg/dose inhalation powder (Breo Ellipta) meclizine 25 mg tablet 25 mg PO TID PRN Dizziness 03/09/25 04/02/25 History umeclidinium 62.5 mcg/actuation 1 inh inhalation DAILY 03/09/25 04/02/25 History blister powder for inhalation (Incruse Ellipta) ondansetron 4 mg disintegrating See Rx Instructions .Route .COMPLEX 04/02/25 04/02/25 History tablet prochlorperazine maleate 10 mg 10 mg PO Q4H PRN mild nausea 04/02/25 04/02/25 History tablet trazodone 50 mg tablet 50 mg PO BEDTIME PRN Sleep 04/02/25 04/02/25 History Allergies/Adverse Reactions Allergy/AdvReac Type Severity Reaction Status Date / Time acetaminophen (From Tylenol Allergy Unknown Verified 03/22/25 13:36 Severe Allergy) diphenhydramine (From Allergy Unknown Verified 03/22/25 13:36 Tylenol Severe Allergy) Fish Containing Products Allergy ALGY-Rash Verified 03/22/25 13:37 Current Medications: Generic Name Dose Route Start Last Admin Trade Name Freq PRN Reason Stop Dose Admin Heparin Sodium/Sodium Chloride 25,000 unit in 500 mls @ 0 mls/hr 04/01/25 15:30 04/03/25 06:28 Heparin Drip IV 0 unit/kg/hr On Hold: 04/03/25 06:42 CONT RED 0 mls/hr Protocol Titration Per Protocol Pertinent History/Comorbid Conditions* Medical History (Updated 04/01/25 @ 16:16 by Jessenia Gibson MD) Asthma Family History (Updated 03/22/25 @ 13:42 by Dawna Garcia LPN) CAD (coronary artery disease) Father Cancer Father Mother Hypertension Mother Denies family history of Diabetes Social History Smoking and tobacco/nicotine status: former use of tobacco/nicotine Quit status (tobacco/nicotine): has quit using Year quit tobacco: 2024 Former quit date comment: 5 months ago Alcohol intake: never Substance/Drug Use: never Pertinent Exam Findings alert, oriented x 3, clear to auscultation bilaterally and regular rate & rhythm Recommendations Surgery/Procedure today Coding Level of Care Code Acute Code for Chg Fwd
[2025-04-03 08:35] LABS: Partial Thromboplastin Time 28.3 SECONDS (23.9-36.7)
--- NOTE | 2025-04-03 08:51 | SC_ITS ---
WS: [id number] C-ARM RADIOGRAPHS CHEST; 2 IMAGES HISTORY: For port COMPARISON: None available. Intraoperative imaging during Port-A-Cath placement. Right-sided Port-A-Cath present with tip overlying the mid to distal SVC. SC/C-arm FL for CVA [id number] IMPRESSION: Intraoperative imaging during RIGHT Port-A-Cath placement.
--- NOTE | 2025-04-03 08:57 | P.PN_ITS ---
Subjective 2 Subjective: the patient was taken to the surgery in the morning, spoke to the primary surgery team for further post op anticoagulation no bleeding episodes and no acute issues overnight reported having abd wound that need wound care and surgery review Vitals/I&O/Wt Last Vital Signs Temp 98.1 F 04/03/25 07:35 Pulse 72 04/03/25 07:35 Resp 15 04/03/25 07:35 BP 122/79 04/03/25 07:35 Pulse Ox 95 04/03/25 07:35 O2 Del Method Room Air 04/03/25 07:35 04/02/25 04/03/25 04/03/25 22:59 06:59 14:59 Intake Total 658.75 / 1341.40 285.834 / 1627.234 Output Total 150 / 150 Balance 508.75 / 1191.40 285.834 / 1477.234 Weight last 48 hrs Weight 90.537 kg Weight 87.09 kg Weight 87.18 kg Physical Exam 2 Narrative: Patient went for surgery, physically not seen or examined. Vitals and overnight events has been reviewed along with objective parameters and further plan of care documented accordingly Data 04/03/25 01:02 04/03/25 01:02 A&P Assessment and plan 1. Anticoagulation management encounter: 2. Pulmonary embolism: Plan: - patient has been on apixaban for PE, currently scheduled for port insertion and done 04/03/25, was on heparin infusion, post surgery considering its a minor surgery procedure without significant blood loss, then apixaban to restart after one day, - monitor cbc - meanwhile can give prophylactic VTE today with one dose of enoxaparin 40mg if no hb drop or bleeding episodes - monitor vitals and any signs of bleeding PDMP PDMP Reviewed: Not Reviewed Attestations 2 Medical Necessity Statement*: hospital stay as per the primary team Time Spent in Patient Care: 16 - 35 minutes Other Attestations: the patient has been informed about her condition and discussed about the plan of managament with risks and benefits, agreed with it without any language barrier Coding Level of Care Code Acute Code for Chg Fwd Diagnoses Anticoagulation management encounter Z51.81; Z79.01 Pulmonary embolism I26.99
--- NOTE | 2025-04-03 08:57 | PC.NURSE ---
pt to or @ approx. 1336
--- NOTE | 2025-04-03 09:42 | ANES.PREANE2 ---
Pre-Anesthetic Assessment Height/Weight: Height 5 ft 2 in Weight 199 lb 9.6 oz Temp Pulse Resp BP Pulse Ox O2 Del Method 97.4 F L 71 18 120/76 95 Room Air 04/03/25 08:57 04/03/25 08:57 04/03/25 08:57 04/03/25 08:57 04/03/25 08:57 04/03/25 07:35 Preop Diagnosis: ovarian cancer Operation Date: 04/03/25 11:30 Proposed Procedures p Insertion Central Venous Access Device Port a Cath Insertion [id number] [id number](Not Applicable) - Peter Sanders MD Was Beta Pernell taken within 24 hours: N/A Was Clonidine taken within 24 hours: N/A Last intake: Intake Last Liquid Date 04/02/25 Last Liquid Time 19:00 Last Solid Date 04/02/25 Last Solid Time 17:00 Social No alcohol and No tobacco Exam alert, oriented x 3, clear to auscultation bilaterally and regular rate & rhythm Airway Submandibular: within normal limits Cervical ROM: within normal limits Mallampati: Class III Comments: Comments: Smaller mouth opening, edentulous Anesthetic Plan ASA status: 4 Anesthesia: MAC Other: No prior issues with anesthesia N.p.o. since yesterday evening Patient has a chronic history of PEs, on chronic Eliquis. Patient was admitted in the hospital to bridge with heparin. Heparin was turned off at 02 06 today Patient has ovarian cancer needing chemotherapy Labs reviewed and acceptable for procedure EKG showing sinus rhythm with occasional PVCs Plan for MAC anesthesia with local via surgeon Medications/Allergies Home Medications ?Medication ?Instructions ?Recorded ?Confirmed ?Last Taken ?Type albuterol sulfate 90 mcg/actuation 2 puff inhalation Q6H PRN sob 02/06/25 04/02/25 Unknown History aerosol inhaler apixaban 5 mg tablet (Eliquis) 5 mg PO BID 03/07/25 04/02/25 03/31/25 History fluticasone furoate 100 1 inh inhalation DAILY 03/09/25 04/02/25 03/31/25 History mcg-vilanterol 25 mcg/dose inhalation powder (Breo Ellipta) meclizine 25 mg tablet 25 mg PO TID PRN Dizziness 03/09/25 04/02/25 Unknown History umeclidinium 62.5 mcg/actuation 1 inh inhalation DAILY 03/09/25 04/02/25 03/31/25 History blister powder for inhalation (Incruse Ellipta) ondansetron 4 mg disintegrating See Rx Instructions .Route .COMPLEX 04/02/25 04/02/25 Unknown History tablet prochlorperazine maleate 10 mg 10 mg PO Q4H PRN mild nausea 04/02/25 04/02/25 Unknown History tablet trazodone 50 mg tablet 50 mg PO BEDTIME PRN Sleep 04/02/25 04/02/25 Unknown History Allergies Allergy/AdvReac Type Severity Reaction Status Date / Time acetaminophen (From Tylenol Allergy Unknown Verified 03/22/25 13:36 Severe Allergy) diphenhydramine (From Allergy Unknown Verified 03/22/25 13:36 Tylenol Severe Allergy) Fish Containing Products Allergy ALGY-Rash Verified 03/22/25 13:37 Current Medications Generic Name Dose Route Start Last Admin Trade Name Freq PRN Reason Stop Dose Admin Heparin Sodium/Sodium Chloride 25,000 unit in 500 mls @ 0 mls/hr 04/01/25 15:30 04/03/25 06:28 Heparin Drip IV 0 unit/kg/hr On Hold: 04/03/25 06:42 CONT RED 0 mls/hr Protocol Titration Per Protocol Sodium Chloride 1,000 mls @ 30 mls/hr 04/03/25 09:00 04/03/25 09:06 Sodium Chloride 0.9% IV 04/04/25 08:59 30 mls/hr .Q24H RED Administration PFSH Anesthesia Medical History (Updated 04/01/25 @ 16:16 by Jessenia Gibson MD) Asthma Family History (Updated 03/22/25 @ 13:42 by Dawna Garcia LPN) Father Cancer CAD (coronary artery disease) Mother Cancer Hypertension Denies family history of Diabetes Social History (Updated 03/22/25 @ 13:42 by Dawna Garcia LPN) Smoking and tobacco/nicotine status: former use of tobacco/nicotine Quit status (tobacco/nicotine): has quit using Year quit tobacco: 2024 Former quit date comment: 5 months ago Alcohol intake: never Substance/Drug Use: never Data Anesthesia 04/03/25 01:02 04/03/25 01:02 Short CBC 04/01/25 04/01/25 04/03/25 Range/Units 14:58 14:58 01:02 WBC 9.22 9.07 (3.29-11.43) 10^3/uL Hgb 11.20 L 11.20 L (11.27-16.99) g/dL Hct 36.8 37.2 (36-47) % MCV 91.3 93.5 (85-98) fl Plt Count 292 313 222 (157-399) 10^3/cmm Neut % (Auto) 67.1 60.9 % Neut # (Auto) 6.19 5.52 (1.8-7.7) 10^3/uL BMP 04/01/25 04/03/25 23:17 01:02 Sodium 140 137 Potassium 3.8 3.9 Chloride 105 103 Carbon Dioxide 23 22 BUN 10 9 Creatinine 0.6 0.7 Glucose 108 106 Calcium 8.5 8.4 L Cardiac Enzymes 04/01/25 04/02/25 04/02/25 Range/Units 23:17 01:27 05:04 Troponin T Baseline 8 (0-10) ng/L Troponin T 120 Minute 8.29 (0-10) ng/L Delta Troponin T 0.29 (0-10) ABS# Troponin T Hi Sens 6Hr 7.96 (0-10) ng/L Troponin T Hi Sens 6Hr Delta -0.04 L (0-12) ng/L Liver Function 04/01/25 04/03/25 Range/Units 23:17 01:02 Total Bilirubin 0.2 0.2 (0.15-1.2) mg/dL AST 18 13 (0-32) U/L ALT 20 18 (0-33) U/L Alkaline Phosphatase 116 H 112 H (35-105) U/L Albumin 3.0 L 2.8 L (3.5-5.2) g/dL Coags 04/01/25 04/01/25 04/02/25 14:58 22:27 05:04 APTT 24.2 45.8 H D 65.4 H 04/02/25 04/02/25 04/03/25 11:11 18:18 01:02 APTT 78.3 H 66.7 H 62.1 H 04/03/25 08:09 APTT 28.3 D
--- NOTE | 2025-04-03 09:57 | PC.CHAP ---
Pastoral Care Encounter/Spiritual Assessment Type of Contact [] Declined grease packer visit [] Patient/Family/Request visit [] Outpatient visit [] Follow-up visit [] Physician referral [] Code/Alert [x] Routine visit [] Staff referral [] Actively dying [] Patient sleeping [] Family support [] [x] Out of room [] Palliative care [] [] Receiving care in room [] Pre-surgical visit [] Trauma [] Long length of stay [] ICU visit [] Other: Relational/Emotional Strength [] Patient feels connected with others/family/visitors/staff [] Distress [] Loneliness/isolation [] Abandonment Spirituality of Patient [] Person of Maddy [] Attends Mormon of their Maddy [] Believes in Prayer [] Reads Bible or Anabaptism materials [] There are Spiritual issues to be addressed [employer] Interventions [x] Prayer [] Active listening [] Non-anxious presence [] Spiritual/emotional support [] Crisis/trauma care [] Spiritual counseling [] Bereavement support [] Provided bereavement packet [] Provided Bible/devotional materials [] Provided toy/stuffed animal, coloring book to patient or family member [] Provided Communion [] Anointing/[place] [] Salvation [] Completed spiritual assessment [] Other: Impact on Illness or Injury [] Angry [] Fearful [] Anxious [] Often cries [] Exhaustion [] Unable to work [] Unable to attend restorationist [] Unable to walk/stand [] Unable to read [] Unable to drive [] Unable to eat/drink [] Unable to sleep [] Unable to be with family [] Patient intubated [] Other: Summary Time spent with patient
[2025-04-03] MEDS: ceFAZolin 2,000 mg SDV 2000 MG IVP (10:19)
[2025-04-03] MEDS: BUPivacaine 0.25% INJ 10 mL INJECTION (10:54)
[2025-04-03] MEDS: lidocaine-epi 1% 20 mL INJ 10 ML INJECTION (10:56)
[2025-04-03] MEDS: heparin, porcine 1,000 unit/mL INJ 10 mL 10000 UNIT INTRACATH (10:57)
--- NOTE | 2025-04-03 11:08 | PM.OP ---
Operative Report Date of procedure: April 03, 2025 Pre-op diagnosis: Ovarian cancer Post-op diagnosis: Same Procedure done: Insertion of Port-A-Cath Implants: Bard Port-A-Cath Surgeon: Peter Sanders MD Inspector Wire Products: [employer] OR Staff Estimated blood loss: 5 Brief History: 64-year-old female with history of ovarian cancer and also high risk anticoagulation use who was admitted to the hospital for bridging with heparin previous to the placement of a Port-A-Cath for chemotherapy. We discussed the risk benefits of the Port-A-Cath placement and she agrees to proceed. Procedure: Patient was brought into the OR, he was placed in a supine position, monitored anesthesia sedation was given. Timeout was conducted after the skin was prepped and draped in the usual sterile fashion. I then proceeded to identify the right IJ vein with ultrasound, I infiltrated local anesthesia on top of the vein. I then proceeded to cannulate the vein under direct ultrasound guidance using an 18-gauge needle, the needle tip was seen entering the vein and immediate return of blood was noted. A wire was advanced through the needle and the needle was removed. The position of the wire was verified with ultrasound and fluoroscopy. The wire was then fixed to the drapes. I then placed my attention to the chest, local anesthesia was infiltrated in the previously marked area on the chest and then a tract connecting the chest to the wire insertion site in the neck. I then proceeded to make a 3.5 cm incision in the right upper chest, the incision was deepened to subcutaneous tissue with electrocautery and electrocautery was used to create the subcutaneous pocket to house the Port-A-Cath. I then proceeded to use a hemostat to create a tunnel from the chest wound to the neck. I then proceeded to make a 0.5 cm incision at the level of the wire insertion site in the neck. Hemostasis was verified. I then placed the Port-A-Cath in the pocket and tunneled the catheter using the provided tunneler. The catheter was cut to appropriate length under fluoroscopy guidance and then flushed. I then proceeded to insert an introducer with a peel-off sheath over the wire under direct fluoroscopic guidance. I then remove the wire and the introducer leaving the peel-off sheath in place. The catheter was then advanced through the peel-off sheath and the peel-off sheath was removed leaving the catheter in place. Fluoroscopy showed evidence of Adequate catheter position. I then proceeded to access the port; the port was retrieving blood and flushing fine, I then hep-locked the catheter. Hemostasis was verified. The wound was closed in layers using #3-0 Vicryl for the subcutaneous tissue and #4 Monocryl for the skin. Dermabond was applied. At the end of the procedure all counts were correct. The patient tolerated well the procedure and was transferred to the PACU in stable condition.
--- NOTE | 2025-04-03 11:23 | P.PN_ITS ---
Subjective 2 Subjective: Patient did well over the last 24 hours, had her port placed today no other significant issues. I was also asked by the medical team to evaluate abdominal wound. Patient has a known large infraumbilical wound from previous hysterectomy has been receiving wound care by nursing staff at home and also has been followed by primary surgeon in [place]. Vitals/I&O/Wt Last Vital Signs Temp 97 F L 04/03/25 11:11 Pulse 80 04/03/25 11:11 Resp 10 L 04/03/25 11:11 BP 120/67 04/03/25 11:11 Pulse Ox 94 04/03/25 11:11 O2 Del Method Room Air 04/03/25 11:11 04/02/25 04/03/25 04/03/25 22:59 06:59 14:59 Intake Total 658.75 / 1341.40 285.834 / 1627.234 0 / 0 Output Total 150 / 150 3 / 3 Balance 508.75 / 1191.40 285.834 / 1477.234 -3 / -3 Weight last 48 hrs Weight 199 lb 9.6 oz Weight 192 lb Weight 192 lb 3.2 oz Physical Exam 2 Narrative: Normal exam of the upper neck and chest, port in place no evidence of active bleeding. ? In the abdomen at the level of the infraumbilical region there is very deep wound that compromises entire abdominal wall and ASIS to be tracking down all the way down to the fascia, there is good granulation tissue but at the bottom of the wound there is some loops of plastic material likely representing either mesh material that is getting exposed or previous permanent suture placed by the primary surgeon. Data 04/03/25 01:02 04/03/25 01:02 A&P Assessment and plan 1. Ovarian cancer: 2. Ovarian cancer on left: Plan: Excellent progression of the port placement. She will receive apixaban starting tonight and plan for discharge tomorrow morning. Regarding abdominal wound extensive discussion with the patient, this wound has been followed by primary surgeon in [place] as well as nursing wound care. I have offer a referral to the wound care center in our facility patient will think about it and decide. I have explained to the patient that she needs follow-up with her primary surgeon as I do think the material noticed on the bottom of the wound may be exposed suture material and in this case it may need to be removed to allow the full wound to heal. In the interim she will continue daily wet-to-dry dressing as indicated. She shows understanding agrees to continue with the plan. PDMP PDMP Reviewed: Not Reviewed Attestations 2 Medical Necessity Statement*: Patient will stay until tomorrow morning to resume anticoagulation and then after that she will be allowed to transition home Coding Level of Care Code Acute Code for [facility] Fwd Diagnoses Ovarian cancer C56.9 Ovarian cancer on left C56.2
--- NOTE | 2025-04-03 11:42 | ANE.PACU2 ---
Inpatient post-anesthesia follow up: Airway intact: Yes Vital signs: Temperature 97.5 F Pulse Rate 68 Respiratory Rate 15 Blood Pressure 124/88 Pulse Oximetry 94 Oxygen Delivery Me thod Room Air Oxygen Flow Rate Fraction of Inspir ed Oxygen Hydration adequate: Yes Nausea and vomiting: No Pain level: 1 Mental status: Baseline
[2025-04-03 15:55] LABS: Hematocrit 37.8 % (36-47); Hemoglobin 11.50 g/dL (11.27-16.99); Mean Corpuscular HGB Conc 30.4 g/dL (30-55); Mean Corpuscular Hemoglobin 28.0 pg (27-33); Mean Corpuscular Volume 92.2 fl (85-98); Nucleated Red Blood Cells % 0 %; Platelet Count 257 10^3/cmm (157-399); Red Blood Count 4.10 10^6/uL (3.85-5.65); White Blood Count 7.19 10^3/uL (3.29-11.43)
[2025-04-04] VITALS: BP 125/70; PULSE 75; RESP 16; TEMP 36.9; O2SAT 95
[2025-04-04 04:00] VITALS: BP 124/76; PULSE 68; RESP 15; TEMP 36.9; O2SAT 96
[2025-04-04 05:02] LABS: Hematocrit 36.4 % (36-47); Hemoglobin 11.10 g/dL (11.27-16.99); Mean Corpuscular HGB Conc 30.5 g/dL (30-55); Mean Corpuscular Hemoglobin 27.9 pg (27-33); Mean Corpuscular Volume 91.5 fl (85-98); Nucleated Red Blood Cells % 0 %; Platelet Count 247 10^3/cmm (157-399); Red Blood Count 3.98 10^6/uL (3.85-5.65); White Blood Count 8.77 10^3/uL (3.29-11.43)
[2025-04-04 05:26] VITALS: PULSE 69
[2025-04-04 07:30] VITALS: BP 144/80; PULSE 78; RESP 18; TEMP 36.5; O2SAT 95
--- NOTE | 2025-04-04 07:57 | P.DS_ITS ---
Discharge Providers Date of Admission: 04/01/25 11:52 Date of Discharge: April 04, 2025 Attending Provider at Admission: Peter Sanders MD Attending Provider at Discharge: Peter Sanders MD Diagnoses at Discharge Discharge Diagnosis 1. Anticoagulation management encounter: 2. Pulmonary embolism: Reason for Visit Reason for Visit: Pre Surgery Hospital Course Hospital Course This is a 64-year-old female with history of ovarian cancer who required a Port-A-Cath placement for initiation of chemotherapy. Patient has a history of high risk for PE and therefore required to be bridged with heparin before the procedure, she was admitted 2 days before the procedure and bridge to heparin, she underwent Port-A-Cath placement yesterday. Hemoglobin has remained stable and she will be restarted on full anticoagulation this morning and discharged home. Of note, during this hospital was identified the patient has a large infr aumbilical wound from previous hysterectomy, according to the patient is managed by visiting nurse as well as a primary surgeon in [place]. I will provide a referral to our wound care center in case that they can offer any additional advanced wound care modalities to help this wound heal. Physical Exam HENMT: OTHER: Port-A-Cath in place in the right upper chest, no evidence of infection or bleeding GI: OTHER: Large infraumbilical wound compromising the whole subcutaneous tissue has good granulation tissue but there appears to be some foreign material at the level of the base of the wound. Discharge Data Studies Completed and Pending Pending at discharge Category Date Time Status C-arm [place] for CVA [id number] Routine Exams 04/03/25 08:51 Taken Platelet Count Q2D Lab 04/05/25 04:00 Ordered Laboratory Results WBC 8.77 10^3/uL (3.29-11.43) 04/04/25 04:16 RBC 3.98 10^6/uL (3.85-5.65) 04/04/25 04:16 Hgb 11.10 g/dL (11.27-16.99) L 04/04/25 04:16 Hct 36.4 % (36-47) 04/04/25 04:16 MCV 91.5 fl (85-98) 04/04/25 04:16 MCH 27.9 pg (27-33) 04/04/25 04:16 MCHC 30.5 g/dL (30-55) 04/04/25 04:16 RDW 13.2 % (12.1-15.1) 04/04/25 04:16 Plt Count 247 10^3/cmm (157-399) 04/04/25 04:16 MPV 9.4 fL (7.4-10.4) 04/04/25 04:16 Neut % (Auto) 61.4 % 04/04/25 04:16 Lymph % (Auto) 25.3 % 04/04/25 04:16 [place] % (Auto) 7.5 % 04/04/25 04:16 Eos % (Auto) 4.6 % 04/04/25 04:16 Baso % (Auto) 0.7 % 04/04/25 04:16 Neut # (Auto) 5.39 10^3/uL (1.8-7.7) 04/04/25 04:16 Lymph # (Auto) 2.2 10^3/uL (0.8-4.8) 04/04/25 04:16 [place] # (Auto) 0.7 10^3/uL (0.2-0.9) 04/04/25 04:16 Eos # (Auto) 0.4 10^3/uL (0.0-0.8) 04/04/25 04:16 Baso # (Auto) 0.1 10^3/uL (0.0-0.1) 04/04/25 04:16 Nucleated RBC % (auto) 0 % 04/04/25 04:16 Nucleated RBCs # 0.0 /100WBC 04/04/25 04:16 APTT 28.3 SECONDS (23.9-36.7) D 04/03/25 08:09 Sodium 137 mmol/L (136-145) 04/03/25 01:02 Potassium 3.9 mmol/L (3.5-5.1) 04/03/25 01:02 Chloride 103 mmol/L (98-107) 04/03/25 01:02 Carbon Dioxide 22 mmol/L (22-29) 04/03/25 01:02 Anion Gap 15.9 (5-19) 04/03/25 01:02 BUN 9 mg/dL (8-23) 04/03/25 01:02 Creatinine 0.7 mg/dL (0.5-0.9) 04/03/25 01:02 GFR Calculation 84.8 mL/min (90-130) L 04/03/25 01:02 Glucose 106 mg/dL (65-115) 04/03/25 01:02 Calculated Osmolality 283 mOsm/kg (285-295) L 04/03/25 01:02 Calcium 8.4 mg/dL (8.5-10.5) L 04/03/25 01:02 Magnesium 1.3 mg/dL (1.7-2.3) L 04/01/25 23:17 Total Bilirubin 0.2 mg/dL (0.15-1.2) 04/03/25 01:02 AST 13 U/L (0-32) 04/03/25 01:02 ALT 18 U/L (0-33) 04/03/25 01:02 Alkaline Phosphatase 112 U/L (35-105) H 04/03/25 01:02 Troponin T Baseline 8 ng/L (0-10) 04/01/25 23:17 Troponin T 120 Minute 8.29 ng/L (0-10) 04/02/25 01:27 Delta Troponin T 0.29 ABS# (0-10) 04/02/25 01:27 Troponin T Hi Sens 6Hr 7.96 ng/L (0-10) 04/02/25 05:04 Troponin T Hi Sens 6Hr Delta -0.04 ng/L (0-12) L 04/02/25 05:04 Total Protein 6.0 g/dL (6.6-8.7) L 04/03/25 01:02 Albumin 2.8 g/dL (3.5-5.2) L 04/03/25 01:02 Globulin 3.2 g/dL (1.3-4.6) 04/03/25 01:02 Vitals Last Vital Signs Temp 97.7 F 04/04/25 07:30 Pulse 78 04/04/25 07:30 Resp 18 04/04/25 07:30 BP 144/80 04/04/25 07:30 Pulse Ox 95 04/04/25 07:30 O2 Del Method Room Air 04/04/25 07:30 Discharge Plan Discharge Patient Disposition: Home Condition: Stable Prescriptions: New amoxicillin-pot clavulanate 875-125 mg tablet 1 tab PO BID 3 Days Qty: 6 0RF oxycodone 5 mg tablet 5 mg PO Q8H PRN (Reason: pain) Qty: 10 0RF polyethylene glycol 3350 [Miralax] 17 gram powder in packet 17 g PO DAILY 5 Days Qty: 5 0RF Continued albuterol sulfate 90 mcg/actuation HFA aerosol inhaler 2 puff inhalation Q6H PRN (Reason: sob) Eliquis 5 mg tablet 5 mg PO BID meclizine 25 mg tablet 25 mg PO TID PRN (Reason: Dizziness) fluticasone furoate-vilanterol [Breo Ellipta] 100-25 mcg/dose blister with device 1 inh INHALATION DAILY Incruse Ellipta 62.5 mcg/actuation blister with device 1 inh INHALATION DAILY trazodone 50 mg tablet 50 mg PO BEDTIME PRN (Reason: Sleep) prochlorperazine maleate 10 mg tablet 10 mg PO Q4H PRN (Reason: mild nausea) ondansetron 4 mg tablet,disintegrating See Rx Instructions .ROUTE .COMPLEX Rx Instructions: DISSOLVE 1 TABLET ON TOP OF TONGUE THEN SWALLOW WITH SALIVA EVERY 8 HOURS NEEDED FOR NAUSEA/EMESIS. Discharge Order = DC NOW: Discharge Order (Routine); Ordered 04/04/25 Ordered By: Peter Sanders Referrals: Peter Sanders MD [Physician, General Surgery] Referral Note: 2 weeks Donavan Fernandez MD [Physician, Wound Care] Referral Note: Patient has large inferaumbilical wound from hysterrectomy. may benefit from advanced wound care Discharge Diet: Advance as tolerated Discharge Activity: Resume usual activity Patient Instructions: Acute Wound Care (DC), Opioid Safety, Post Anesthesia Care, Patient Portal & Aleida Instructions Activity Restrictions/Additional Instructions: General Instructions: You can walk is much as possible, this will help you recover faster. You can shower starting tomorrow, let soap and water run over your wound and then pat dry. Please take your medication as indicated if you are taking opioids please do not forget to take a stool softener Warning signs: Return to the hospital if you have fever, chills, severe abdominal pain that is getting worse over time despite your pain medication or if you see pus in your wounds Discharge Attestations Time Spent in Discharge Care*: less than 30 min Quality Metrics Clinical Quality Measures [ No reported AMI, CVA or VTE this stay] Coding Level of Care Code Acute Code for Chg Fwd Diagnoses Anticoagulation management encounter Z51.81; Z79.01 Pulmonary embolism I26.99
--- NOTE | 2025-04-04 09:40 | PC.CHAP ---
Pastoral Care Encounter/Spiritual Assessment Type of Contact [] Declined supervisor hydrochloric area visit [] Patient/Family/Request visit [] Outpatient visit [] Follow-up visit [] Physician referral [] Code/Alert [x] Routine visit [] Staff referral [] Actively dying [] Patient sleeping [] Family support [] [] Out of room [] Palliative care [] [] Receiving care in room [] Pre-surgical visit [] Trauma [] Long length of stay [] ICU visit [] Other: Relational/Emotional Strength [x] Patient feels connected with others/family/visitors/staff [] Distress [] Loneliness/isolation [] Abandonment Spirituality of Patient [x] Person of Maddy [] Attends Gnosticist of their Maddy [x Believes in Prayer [] Reads Bible or Samaritan materials [] There are Spiritual issues to be addressed Criminal Justice Faculty Interventions [x] Prayer [x] Active listening [] Non-anxious presence [x] Spiritual/emotional support [] Crisis/trauma care [] Spiritual counseling [] Bereavement support [] Provided bereavement packet [] Provided Bible/devotional materials [] Provided toy/stuffed animal, coloring book to patient or family member [] Provided Communion [] Anointing/[place] [] Salvation [x] Completed spiritual assessment [] Other: Impact on Illness or Injury [] Angry [] Fearful [] Anxious [] Often cries [] Exhaustion [] Unable to work [] Unable to attend mandaen [] Unable to walk/stand [] Unable to read [] Unable to drive [] Unable to eat/drink [] Unable to sleep [] Unable to be with family [] Patient intubated [] Other: Summary Time spent with patient 5 min
--- NOTE | 2025-04-04 10:56 | P.PN_ITS ---
Subjective 2 Subjective: the patient seen in the morning, s/p port insetion no hematoma at the site, currently stable and no acute concerns Vitals/I&O/Wt Last Vital Signs Temp 97.7 F 04/04/25 07:30 Pulse 78 04/04/25 07:30 Resp 18 04/04/25 07:30 BP 144/80 04/04/25 07:30 Pulse Ox 95 04/04/25 07:30 O2 Del Method Room Air 04/04/25 07:30 04/03/25 04/04/25 04/04/25 22:59 06:59 14:59 Intake Total 780 / 1341 100 / 1441 240 / 240 Balance 780 / 1338 100 / 1438 240 / 240 Weight last 48 hrs Weight 91.989 kg Weight 90.537 kg Physical Exam 2 Narrative: General: Alert oriented x3, HEENT: Normocephalic, atraumatic, EOMI, Cardio: Regular rate rhythm, normal S1-S2, no murmurs rubs gallops, JVD normal, chemo port at the right subclavicular area, no hematoma or any fluctuations around the skin Respiratory: Good bilateral air entry, no wheezes no rhonchi appreciated GI: Abdomen soft, nontender, nondistended, normoactive bowel sounds present all 4 quadrants, having abdominal wound covered with dressing that is being changed by the patient. No tenderness or discharge noticed Neuro: Cranial nerves II to XII intact, strength 5/5, sensation 5/5, no gross neurological deficit Behavior: Appropriate and cooperative Extremities: Pulses 2+, no edema, no cyanosis Skin: Visible skin intact, no rashes Data 04/04/25 04:16 04/03/25 01:02 A&P Assessment and plan 1. Anticoagulation management encounter: 2. Pulmonary embolism: Plan: - patient has been on apixaban for PE, port insertion done 04/03/25, was on heparin infusion, post surgery hb stable and to discharge on apixaban and to follow as outpatient with PCP and oncology - sign off - in case of any concerns, call us back - thank you for involving in the care of this patient PDMP PDMP Reviewed: Not Reviewed Attestations 2 Medical Necessity Statement*: as per the primary team Time Spent in Patient Care: 16 - 35 minutes (>than 50% of time sp ent in counselling and/or direct pt care on unit) . Other Attestations: Patient condition has been discussed at length with the patient/family, I have independently reviewed the chart labs imaging and diagnostics and EKG. the goals of care and code status with the patient/family/NOK/legal circulation sales representative, and documented accordingly. The patient/family has been informed about the current condition and further plan of care. Agreed with the plan of care and understood without any language barrier. This documentation was created by [employer] proofreader software. Every effort was made to ensure accuracy of proofreader. Any obvious errors or omissions should be clarified with the author of the document. Coding Level of Care Code Acute Code for Chg Fwd Diagnoses Anticoagulation management encounter Z51.81; Z79.01 Pulmonary embolism I26.99
== END 2025-04-04 09:55 | disposition home health service (06) ==
PROVIDERS: Family Medicine; Student in an Organized Health Care Education/Training Program; Admitting Provider Surgery; Visit Provider Surgery
PROC: (CPT 36561; principal; 2025-04-03 11:20)
DX: C56.2 Malignant neoplasm of left ovary (principal); Z79.01 Long term (current) use of anticoagulants; I26.99 Other pulmonary embolism without acute cor pulmonale; Z51.81 Encounter for therapeutic drug level monitoring; Z87.891 Personal history of nicotine dependence; J45.909 Unspecified asthma, uncomplicated
CPT/HCPCS: 36561; 36415; 76000; 77001; 80053; 83735; 84484; 85025; 85049; 85730; 93005; 96372; C1788; G0378; G0379; J0690; J1644; J1650; J1885; J2250; J2704; J3010; J3490; J7030; J9999

== ENCOUNTER → 2025-04-11 13:03 | Outpatient (BNVA) | payer OTHER, SELFPAY | PROVIDERS: Visit Provider Thoracic Surgery (Cardiothoracic Vascular Surgery) | DX: I96 Gangrene, not elsewhere classified (principal); T81.31XD Disruption of external operation (surgical) wound, not elsewhere classified, subsequent encounter; Y83.8 Other surgical procedures as the cause of abnormal reaction of the patient, or of later complication, without mention of misadventure at the time of the procedure | CPT/HCPCS: 11042; 11045; 99213 ==

== ENCOUNTER → 2025-04-19 12:54 | Outpatient (BNVA) | payer OTHER, SELFPAY | PROVIDERS: Visit Provider Surgery | DX: C56.2 Malignant neoplasm of left ovary (principal) | CPT/HCPCS: 97597; 97598; 97605; 99213; A6237 ==

== ENCOUNTER → 2025-05-04 09:58 | Outpatient (BNVA) | payer OTHER, SELFPAY | PROVIDERS: Visit Provider Thoracic Surgery (Cardiothoracic Vascular Surgery) | DX: I96 Gangrene, not elsewhere classified (principal); T81.31XD Disruption of external operation (surgical) wound, not elsewhere classified, subsequent encounter; Y83.8 Other surgical procedures as the cause of abnormal reaction of the patient, or of later complication, without mention of misadventure at the time of the procedure | CPT/HCPCS: 11042; 11045; 87070 ==

== ENCOUNTER 2025-05-09 13:30 | Oncology outpatient (recurring) (ONCR) | payer OTHER, SELFPAY ==
[2025-04-25 15:22] LABS: Hematocrit 39.3 % (36-47); Hemoglobin 12.60 g/dL (11.27-16.99); Mean Corpuscular HGB Conc 32.1 g/dL (30-55); Mean Corpuscular Hemoglobin 28.1 pg (27-33); Mean Corpuscular Volume 87.5 fl (85-98); Nucleated Red Blood Cells % 0 %; Platelet Count 311 10^3/cmm (157-399); Red Blood Count 4.49 10^6/uL (3.85-5.65); White Blood Count 12.78 10^3/uL (3.29-11.43)
[2025-04-25 15:42] LABS: Alanine Aminotransferase 30 U/L (0-33); Albumin Level 3.5 g/dL (3.5-5.2); Alkaline Phosphatase 138 U/L (35-105); Anion Gap 14.9 (5-19); Aspartate Amino Transferase 25 U/L (0-32); Blood Urea Nitrogen 12 mg/dL (8-23); Calcium 8.9 mg/dL (8.5-10.5); Carbon Dioxide 23 mmol/L (22-29); Chloride 104 mmol/L (98-107); Creatinine Clr Calc Pharmacy 84.9661; Globulin 3.3 g/dL (1.3-4.6); Glucose 99 mg/dL (65-115); Osmolality Calculated 286 mOsm/kg (285-295); Potassium 3.9 mmol/L (3.5-5.1); Sodium 138 mmol/L (136-145); Total Protein 6.8 g/dL (6.6-8.7)
[2025-04-26] MEDS: aprepitant 130 mg/18 ml SDV IVP (10:33)
[2025-04-26] MEDS: diphenhydrAMINE 50 mg/mL SDV 1mL 25 MG IVP ×2 (10:42→12:10)
[2025-04-26] MEDS: [UNRECOGNIZED DRUG - REMARK] 185 MG IV (11:59)
[2025-04-26 12:02] VITALS: BP 98/60; PULSE 73; RESP 16
[2025-04-26 12:08] VITALS: BP 127/78; PULSE 82; O2SAT 92
[2025-04-26] MEDS: methylPREDNISolone sod succ 125 mg/2 mL INJ IVP (12:12)
[2025-04-26 12:20] VITALS: BP 132/99; PULSE 89; O2SAT 97
[2025-04-26 12:30] VITALS: BP 120/85; PULSE 78; O2SAT 98
[2025-04-26 12:38] LABS: CA 125 113.4 U/mL (0-35)
[2025-04-26 14:53] VITALS: BP 106/68; PULSE 90; RESP 17; TEMP 35.8; O2SAT 96
[2025-05-09 13:48] LABS: Hematocrit 35.5 % (36-47); Hemoglobin 11.20 g/dL (11.27-16.99); Mean Corpuscular HGB Conc 31.5 g/dL (30-55); Mean Corpuscular Hemoglobin 27.4 pg (27-33); Mean Corpuscular Volume 86.8 fl (85-98); Nucleated Red Blood Cells % 0 %; Platelet Count 355 10^3/cmm (157-399); Red Blood Count 4.09 10^6/uL (3.85-5.65); White Blood Count 13.55 10^3/uL (3.29-11.43)
[2025-05-09 14:12] LABS: Alanine Aminotransferase 36 U/L (0-33); Albumin Level 2.9 g/dL (3.5-5.2); Alkaline Phosphatase 171 U/L (35-105); Anion Gap 13.1 (5-19); Aspartate Amino Transferase 20 U/L (0-32); Blood Urea Nitrogen 12 mg/dL (8-23); Calcium 8.7 mg/dL (8.5-10.5); Carbon Dioxide 22 mmol/L (22-29); Chloride 103 mmol/L (98-107); Creatinine Clr Calc Pharmacy 118.6188; Globulin 3.2 g/dL (1.3-4.6); Glucose 142 mg/dL (65-115); Magnesium 1.3 mg/dL (1.7-2.3); Osmolality Calculated 280 mOsm/kg (285-295); Potassium 4.1 mmol/L (3.5-5.1); Sodium 134 mmol/L (136-145); Total Protein 6.1 g/dL (6.6-8.7)
== END 2025-05-09 23:59 | disposition home or self-care (01) ==
PROVIDERS: Nurse Practitioner; Visit Provider Internal Medicine Medical Oncology
DX: Z53.9 Procedure and treatment not carried out, unspecified reason (principal); C56.2 Malignant neoplasm of left ovary; S31.109A Unspecified open wound of abdominal wall, unspecified quadrant without penetration into peritoneal cavity, initial encounter; X58.XXXA Exposure to other specified factors, initial encounter; R39.198 Other difficulties with micturition; Z87.891 Personal history of nicotine dependence; Z79.899 Other long term (current) drug therapy
CPT/HCPCS: 36591; 80053; 83735; 85025; 86304; 96367; 96375; 96409; 99213; 99214; 99215; J0185; J1100; J1200; J2469; J2919; J3490; J7030; J7040; J7050; J9267; J9999

== ENCOUNTER → 2025-05-11 10:11 | Outpatient (BNVA) | payer OTHER, SELFPAY | PROVIDERS: Visit Provider Thoracic Surgery (Cardiothoracic Vascular Surgery) | DX: I96 Gangrene, not elsewhere classified (principal); T81.31XD Disruption of external operation (surgical) wound, not elsewhere classified, subsequent encounter; Y83.8 Other surgical procedures as the cause of abnormal reaction of the patient, or of later complication, without mention of misadventure at the time of the procedure | CPT/HCPCS: 97597; 97598 ==

== ENCOUNTER 2025-05-16 08:00 | Oncology outpatient (recurring) (ONCR) | payer OTHER, SELFPAY ==
[2025-05-16 08:40] LABS: Hematocrit 36.9 % (36-47); Hemoglobin 11.80 g/dL (11.27-16.99); Mean Corpuscular HGB Conc 32.0 g/dL (30-55); Mean Corpuscular Hemoglobin 27.7 pg (27-33); Mean Corpuscular Volume 86.6 fl (85-98); Nucleated Red Blood Cells % 0 %; Platelet Count 365 10^3/cmm (157-399); Red Blood Count 4.26 10^6/uL (3.85-5.65); White Blood Count 12.21 10^3/uL (3.29-11.43)
[2025-05-16 09:06] LABS: Alanine Aminotransferase 18 U/L (0-33); Albumin Level 2.9 g/dL (3.5-5.2); Alkaline Phosphatase 146 U/L (35-105); Anion Gap 17.7 (5-19); Aspartate Amino Transferase 17 U/L (0-32); Blood Urea Nitrogen 7 mg/dL (8-23); CA 125 95.9 U/mL (0-35); Calcium 8.5 mg/dL (8.5-10.5); Carbon Dioxide 20 mmol/L (22-29); Chloride 101 mmol/L (98-107); Creatinine Clr Calc Pharmacy 98.0135; Globulin 3.2 g/dL (1.3-4.6); Glucose 138 mg/dL (65-115); Magnesium 1.2 mg/dL (1.7-2.3); Osmolality Calculated 280 mOsm/kg (285-295); Potassium 3.7 mmol/L (3.5-5.1); Sodium 135 mmol/L (136-145); Total Protein 6.1 g/dL (6.6-8.7)
[2025-05-16] MEDS: diphenhydrAMINE 50 mg/mL SDV 1mL 25 MG IVP (09:54)
[2025-05-16] MEDS: dexamethasone 4 mg/mL INJ 5 mL 12 MG IV (09:55)
[2025-05-16] MEDS: aprepitant 130 mg/18 ml SDV IVP (09:55)
[2025-05-16] MEDS: ondansetron 2 mg/ML SDV 2 mL 8 MG IVP (09:55)
[2025-05-16] MEDS: paclitaxel protein-bound 190 MG in empty flexible container 1 EACH 76 MG IV (10:24)
[2025-05-16] MEDS: CARBOplatin 630 MG in sodium chloride 0.9% 500 ML 563 MG IV (11:09)
[2025-05-16 12:52] VITALS: BP 109/75; PULSE 89; RESP 17; TEMP 36.4; O2SAT 97
== END 2025-06-09 23:59 | disposition home or self-care (01) ==
PROVIDERS: Nurse Practitioner; Visit Provider Internal Medicine Medical Oncology
DX: Z51.11 Encounter for antineoplastic chemotherapy (principal); C56.2 Malignant neoplasm of left ovary; R59.0 Localized enlarged lymph nodes; Z79.899 Other long term (current) drug therapy; Z87.891 Personal history of nicotine dependence; Z95.828 Presence of other vascular implants and grafts; Z79.52 Long term (current) use of systemic steroids
CPT/HCPCS: 80053; 83735; 85025; 86304; 96375; 96413; 96415; 96417; 99214; J0185; J1100; J1200; J2405; J3490; J7040; J7050; J9045; J9264; J9999

== ENCOUNTER → 2025-05-18 09:52 | Outpatient (BNVA) | payer OTHER, SELFPAY | PROVIDERS: Visit Provider Thoracic Surgery (Cardiothoracic Vascular Surgery) | DX: I96 Gangrene, not elsewhere classified (principal); T81.31XD Disruption of external operation (surgical) wound, not elsewhere classified, subsequent encounter; Y83.8 Other surgical procedures as the cause of abnormal reaction of the patient, or of later complication, without mention of misadventure at the time of the procedure | CPT/HCPCS: 97597; 97598 ==

== ENCOUNTER → 2025-06-08 09:30 | Outpatient (BNVA) | payer OTHER, SELFPAY | PROVIDERS: Visit Provider Thoracic Surgery (Cardiothoracic Vascular Surgery) | DX: I96 Gangrene, not elsewhere classified (principal); T81.31XD Disruption of external operation (surgical) wound, not elsewhere classified, subsequent encounter; Y83.8 Other surgical procedures as the cause of abnormal reaction of the patient, or of later complication, without mention of misadventure at the time of the procedure | CPT/HCPCS: 11042 ==

== ENCOUNTER → 2025-06-15 09:30 | Outpatient (BNVA) | payer OTHER, SELFPAY | PROVIDERS: Visit Provider Thoracic Surgery (Cardiothoracic Vascular Surgery) | DX: I96 Gangrene, not elsewhere classified (principal); T81.31XD Disruption of external operation (surgical) wound, not elsewhere classified, subsequent encounter; Y83.8 Other surgical procedures as the cause of abnormal reaction of the patient, or of later complication, without mention of misadventure at the time of the procedure | CPT/HCPCS: 97597; 97598 ==

== ENCOUNTER → 2025-06-29 10:06 | Outpatient (BNVA) | payer OTHER, SELFPAY | PROVIDERS: Visit Provider Thoracic Surgery (Cardiothoracic Vascular Surgery) | DX: I96 Gangrene, not elsewhere classified (principal); T81.31XD Disruption of external operation (surgical) wound, not elsewhere classified, subsequent encounter; Y83.8 Other surgical procedures as the cause of abnormal reaction of the patient, or of later complication, without mention of misadventure at the time of the procedure | CPT/HCPCS: 97597; 97598 ==

== ENCOUNTER 2025-07-04 10:30 | Oncology outpatient (recurring) (ONCR) | payer OTHER, SELFPAY ==
[2025-06-27 09:11] LABS: Hematocrit 29.9 % (36-47); Hemoglobin 9.70 g/dL (11.27-16.99); Mean Corpuscular HGB Conc 32.4 g/dL (30-55); Mean Corpuscular Hemoglobin 29.5 pg (27-33); Mean Corpuscular Volume 90.9 fl (85-98); Nucleated Red Blood Cells % 0 %; Platelet Count 277 10^3/cmm (157-399); Red Blood Count 3.29 10^6/uL (3.85-5.65); White Blood Count 12.07 10^3/uL (3.29-11.43)
[2025-06-27 09:45] LABS: Alanine Aminotransferase 18 U/L (0-33); Albumin Level 3.4 g/dL (3.5-5.2); Alkaline Phosphatase 134 U/L (35-105); Anion Gap 13.4 (5-19); Aspartate Amino Transferase 15 U/L (0-32); Blood Urea Nitrogen 11 mg/dL (8-23); CA 125 11.5 U/mL (0-35); Calcium 8.7 mg/dL (8.5-10.5); Carbon Dioxide 24 mmol/L (22-29); Chloride 104 mmol/L (98-107); Globulin 3.7 g/dL (1.3-4.6); Glucose 121 mg/dL (65-115); Osmolality Calculated 287 mOsm/kg (285-295); Potassium 3.4 mmol/L (3.5-5.1); Sodium 138 mmol/L (136-145); Total Protein 7.1 g/dL (6.6-8.7)
[2025-06-27] MEDS: ondansetron 2 mg/ML SDV 2 mL 8 MG IVP (10:47)
[2025-06-27] MEDS: diphenhydrAMINE 50 mg/mL SDV 1mL 25 MG IVP (10:47)
[2025-06-27] MEDS: dexamethasone 4 mg/mL INJ 5 mL 12 MG IV (10:48)
[2025-06-27] MEDS: paclitaxel protein-bound 190 MG in empty flexible container 1 EACH 76 MG IV (11:20)
[2025-06-27] MEDS: CARBOplatin 630 MG in sodium chloride 0.9% 500 ML 563 MG IV (11:50)
[2025-06-27 12:56] VITALS: BP 122/82; PULSE 73; RESP 17; TEMP 36.4; O2SAT 98
[2025-07-04 10:36] LABS: Hematocrit 28.7 % (36-47); Hemoglobin 9.50 g/dL (11.27-16.99); Mean Corpuscular HGB Conc 33.1 g/dL (30-55); Mean Corpuscular Hemoglobin 29.4 pg (27-33); Mean Corpuscular Volume 88.9 fl (85-98); Nucleated Red Blood Cells % 0 %; Platelet Count 131 10^3/cmm (157-399); Red Blood Count 3.23 10^6/uL (3.85-5.65); White Blood Count 3.32 10^3/uL (3.29-11.43)
[2025-07-04 11:00] LABS: Alanine Aminotransferase 30 U/L (0-33); Albumin Level 3.6 g/dL (3.5-5.2); Alkaline Phosphatase 136 U/L (35-105); Anion Gap 17.7 (5-19); Aspartate Amino Transferase 22 U/L (0-32); Blood Urea Nitrogen 17 mg/dL (8-23); Calcium 8.7 mg/dL (8.5-10.5); Carbon Dioxide 21 mmol/L (22-29); Chloride 103 mmol/L (98-107); Globulin 3.4 g/dL (1.3-4.6); Glucose 130 mg/dL (65-115); Osmolality Calculated 289 mOsm/kg (285-295); Potassium 3.7 mmol/L (3.5-5.1); Sodium 138 mmol/L (136-145); Total Protein 7.0 g/dL (6.6-8.7)
== END 2025-07-09 23:59 | disposition home or self-care (01) ==
PROVIDERS: Nurse Practitioner; Visit Provider Internal Medicine Medical Oncology
DX: C56.2 Malignant neoplasm of left ovary; Z53.9 Procedure and treatment not carried out, unspecified reason
CPT/HCPCS: 36591; 80053; 85025; 86304; 96375; 96413; 96417; 99214; J0185; J1100; J1200; J2405; J3490; J7040; J7050; J9045; J9264; J9999

== ENCOUNTER 2025-07-25 08:00 | Oncology outpatient (recurring) (ONCR) | payer OTHER, SELFPAY ==
[2025-07-18] MEDS: alteplase 1 mg/mL SDV 2 mL 2 MG INTRACATH (08:45)
[2025-07-18 08:50] LABS: Hematocrit 28.1 % (36-47); Hemoglobin 9.30 g/dL (11.27-16.99); Mean Corpuscular HGB Conc 33.1 g/dL (30-55); Mean Corpuscular Hemoglobin 30.0 pg (27-33); Mean Corpuscular Volume 90.6 fl (85-98); Nucleated Red Blood Cells % 0 %; Platelet Count 245 10^3/cmm (157-399); Red Blood Count 3.10 10^6/uL (3.85-5.65); White Blood Count 8.04 10^3/uL (3.29-11.43)
[2025-07-18 09:16] LABS: Alanine Aminotransferase 17 U/L (0-33); Albumin Level 3.5 g/dL (3.5-5.2); Alkaline Phosphatase 166 U/L (35-105); Anion Gap 17.6 (5-19); Aspartate Amino Transferase 15 U/L (0-32); Blood Urea Nitrogen 9 mg/dL (8-23); Calcium 8.6 mg/dL (8.5-10.5); Carbon Dioxide 23 mmol/L (22-29); Chloride 100 mmol/L (98-107); Globulin 3.4 g/dL (1.3-4.6); Glucose 119 mg/dL (65-115); Osmolality Calculated 284 mOsm/kg (285-295); Potassium 3.6 mmol/L (3.5-5.1); Sodium 137 mmol/L (136-145); Total Protein 6.9 g/dL (6.6-8.7)
[2025-07-18 09:21] LABS: Thyroid Stimulating Hormone 1.93 uIU/mL (0.27-4.20)
[2025-07-18 09:49] LABS: CA 125 8.6 U/mL (0-35)
[2025-07-18] MEDS: diphenhydrAMINE 50 mg/mL SDV 1mL 25 MG IVP (11:44)
[2025-07-18] MEDS: ondansetron 2 mg/ML SDV 2 mL 8 MG IVP (11:47)
[2025-07-18] MEDS: dexamethasone 4 mg/mL INJ 5 mL 12 MG IV (11:49)
[2025-07-18] MEDS: paclitaxel protein-bound 190 MG in empty flexible container 1 EACH 76 MG IV (12:23)
[2025-07-18] MEDS: CARBOplatin 630 MG in sodium chloride 0.9% 500 ML 563 MG IV (13:01)
[2025-07-18 14:06] VITALS: BP 122/83; PULSE 63; TEMP 36.1; O2SAT 98
== END 2025-08-09 23:59 | disposition home or self-care (01) ==
PROVIDERS: Visit Provider Nurse Practitioner
DX: Z53.9 Procedure and treatment not carried out, unspecified reason (principal)
CPT/HCPCS: 36415; 36593; 80053; 84443; 85025; 86304; 96375; 96413; 96417; 99214; J0185; J1100; J1200; J2405; J2997; J3490; J7040; J7050; J9045; J9264; J9999